=== PATIENT | female | born 1975 | race Hispanic/Latino ===

== ENCOUNTER 2018-11-11 10:01 | Emergency (ER) | payer SELFPAY ==
--- OUTSIDE RECORDS SUMMARY | 2018-11-11 10:04 | XMS REPORT ---
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 Allergies, Adverse Reactions, Alerts Allergy Name Allergy Type Status Severity Reaction(s) Onset Date Inactive Date Treating Clinician Comments No Known Allergies DA Active U 2017-02-24 00:00:00 Medications This patient has no known medications.
[2018-11-11] MEDS ORDERED: KETOROLAC TROMETHAMINE 60 MG/2 ML VIAL IM ONE (10:45)
--- NOTE | 2018-11-11 11:36 | NUR ---
MALISSA Amaya AT BEDSIDE SPEAKING WITH PATIENT REGARDING MEDS TO START AT HOME FOR BLOOD PRESSURE AND DIABETES. HE IS PRINTING LIST FOR FREE AND REDUCED RATE CLINICS. HEADACHE IS COMPLETELY GONE. BACK PAIN IS REDUCED TO 5/10
[2018-11-11] MEDS ORDERED: HYDROMORPHONE 2MG/ML 2 MG/ML ML IV ONE (15:15)
[2018-11-11] MEDS ORDERED: ONDANSETRON HCL INJ 2MG/ML 2ML 2 MG/ML VIAL ONE (15:17)
== END 2018-11-11 11:45 | disposition home or self-care (01) ==
LOC: ER 10:01
DX: S39.012A Strain of muscle, fascia and tendon of lower back, initial encounter (principal); M54.41 Lumbago with sciatica, right side; R51 Headache; E11.9 Type 2 diabetes mellitus without complications; Z79.84 Long term (current) use of oral hypoglycemic drugs; I10 Essential (primary) hypertension; E66.9 Obesity, unspecified
CPT/HCPCS: 93005; 99283; J1170; J1885; J2405

== ENCOUNTER 2019-02-01 17:13 | Emergency (ER) | payer OTHER ==
[~2019-02-01] VITALS: Ht 162.6 cm; Wt 102.1 kg
--- OUTSIDE RECORDS SUMMARY | 2019-02-01 17:15 | XMS REPORT | Clinical Summary ---
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 diabetes mellitus without mention of complication, uncontrolled Active blood glucose Use as 1 Kit 0 meterIndications: Type II directed. 3 or unspecified type diabetes mellitus without mention of complication, uncontrolled Active blood glucose test Check blood 1 Box 11 stripsIndications: Type glucose at 3 II or unspecified type home 4 times diabetes mellitus without weekly mention of complication, uncontrolled Active LANCETSIndications: Type 4 times 1 Box 11 II or unspecified type weekly 3 diabetes mellitus without mention of complication, uncontrolled Active simvastatin (ZOCOR) 40 mg Take 1 tablet 90 tablet 3 tabletIndications: HLD by mouth at 3 (hyperlipidemia) bedtime. Active lisinopril-hydrochlorothi Take 1 tablet 90 tablet 3 azide (PRINZIDE, by mouth 3 ZESTORETIC) 20-25 mg per daily. tabletIndications: HTN (hypertension) Active metFORMIN (GLUCOPHAGE) Take 1 tablet 180 tablet 3 500 mg tabletIndications: by mouth 2 3 Patella fracture times daily (with meals). Active HYDROcodone-acetaminophen Take 2 42 tablet 0 (NORCO) 5-325 mg tablets by 3 tabletIndications: mouth every 4 Patella fracture hours. Active Problems Problem Noted Date Diabetes mellitus 04/04/2013 Patella fracture 04/02/2013 Encounters Care Team Description Date Type Specialty 01/07/2019 Emergency Emergency Medicine 01/07/2019 Travel after 01/31/2018 Immunizations Name Dates Previously Given Next Due PPV 23 Pneumococcal 04/06/2013 Polysaccaride Tdap Tetanus, diphtheria, 04/30/2013 acellular pertussis Vaccine Family History Medical History Relation Name Comments Diabetes Brother Diabetes Mother Relation Name Status Comments Brother Mother Social History Date Tobacco Use Types Packs/Day Years Used Never Assessed Smokeless Tobacco: Never Used Alcohol Use Drinks/Week oz/Week Comments No Sex Assigned at Date Recorded Not on file Industry Job Start Date Occupation Not on file Not on file Not on file Travel End Travel History Travel Start No recent travel history available. Last Filed Vital Signs Time Taken Vital Sign Reading 01/07/2019 12:14 PM CDT Blood Pressure 182/68 01/07/2019 12:14 PM CDT Pulse 64 01/07/2019 12:14 PM CDT Temperature 36.5 C (97.7 F) 01/07/2019 12:14 PM CDT Respiratory Rate 18 01/07/2019 12:14 PM CDT Oxygen Saturation 98% - Inhaled Oxygen - Concentration - Weight - - Height - - Body Mass Index - Plan of Treatment Health Maintenance Due Date Last Done Comments DM Retinal Exam (Yearly) 1991 Cervical Cancer Scrn (3 1994 Yrs) Breast Cancer Scrn 2013 (Yearly) DM HGBA1C (Yearly) 04/02/2014 04/02/2013 DM Foot Exam (Yearly) 04/30/2014 04/30/2013, 04/30/2013 (Postponed) IMM Influenza Seasonal 07/01/2019Jul to November (>/=19 yrs) Results Not on fileafter 01/31/2018 Insurance Type Payer Benefit Subscriber ID Effective Phone Address Plan / Dates Group [facility] SELF-PAY SELF-PAY xxxxxxxxx 2019-P [phone] [address] [place] [address] Liability Advance Directives For more information, please contact: [address] [address] Date Inactivated Comments Code Status Date Activated 04/06/2013 8:18 PM Full Code 04/02/2013 6:32 PM
[2019-02-01] MEDS ORDERED: CLONIDINE HCL 0.1 MG TAB PO NR (17:30)
[2019-02-01] MEDS ORDERED: CLONIDINE HCL 0.1 MG TAB ONE (17:34)
[2019-02-01] MEDS ORDERED: TRAMADOL HCL 50 MG TAB PO NR (18:00)
[2019-02-01 18:55] VITALS: BP 149/63
== END 2019-02-01 18:59 | disposition home or self-care (01) ==
LOC: ER 17:13
DX: M79.622 Pain in left upper arm (principal); I10 Essential (primary) hypertension; E11.9 Type 2 diabetes mellitus without complications
CPT/HCPCS: 93005; 99282

== ENCOUNTER 2020-05-17 15:16 | Inpatient (IN) | payer OTHER ==
[~2020-05-17] VITALS: Ht 162.6 cm; Wt 117.9 kg
--- OUTSIDE RECORDS SUMMARY | 2020-05-17 15:40 | XMS REPORT | Clinical Summary ---
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 Active lisinopril-hydrochlorothi Take 1 tablet 90 tablet 3 azide (PRINZIDE, by mouth 3 ZESTORETIC) 20-25 mg per daily. tabletIndications: HTN (hypertension) Active HYDROcodone-acetaminophen Take 2 42 tablet 0 (NORCO) 5-325 mg tablets by 3 tabletIndications: mouth every 4 Patella fracture hours. 09/29/2019 Discontinued glyBURIDE micronized Take 1 tablet 180 tablet 3 (GLYNASE) 6 mg by mouth 2 3 tabletIndications: Type times daily II or unspecified type (with meals). diabetes mellitus without mention of complication, uncontrolled 09/29/2019 Discontinued blood glucose Use as 1 Kit 0 meterIndications: Type II directed. 3 or unspecified type diabetes mellitus without mention of complication, uncontrolled 09/29/2019 Discontinued metFORMIN (GLUCOPHAGE) Take 1 tablet 180 tablet 3 0 500 mg tabletIndications: by mouth 2 3 Patella fracture times daily (with meals). 12/28/2019 lisinopril (PRINIVIL) 20 Take 1 tablet 90 tablet 0 mg tabletIndications: by mouth 9 Medication refill daily for 90 days. 12/28/2019 hydroCHLOROthiazide Take 1 tablet 90 tablet 0 09/02 (HYDRODIURIL) 25 mg by mouth 9 tabletIndications: daily for 90 Medication refill days. 12/28/2019 metFORMIN (GLUCOPHAGE) Take 1 tablet 180 tablet 0 1 500 mg tabletIndications: by mouth 2 9 Medication refill times daily (with meals) for 90 days. Active Problems Problem Noted Date Diabetes mellitus 04/04/2013 Patella fracture 04/02/2013 Encounters Care Team Description Date Type Specialty Israel Chua MD Acute left ankle pain (Primary Dx); Medication refill 09/29/2019 Emergency Emergency Medicine Gurinder Mar MD Acute left ankle pain (Primary Dx); Closed nondisp fracture of left lateral malleolus with routine healing 09/26/2019 Emergency Emergency Medicine after 05/17/2019 Immunizations Name Administration Dates Next Due PPV 23 Pneumococcal 04/06/2013 Polysaccaride Tdap Tetanus, diphtheria, 04/30/2013 acellular pertussis Vaccine Family History Medical History Relation Name Comments Diabetes Brother Diabetes Mother Relation Name Status Comments Brother Mother Social History Date Tobacco Use Types Packs/Day Years Used Never Assessed Smokeless Tobacco: Never Used Drinks/Week oz/Week Comments Alcohol Use No Sex Assigned at Date Recorded Not on file Industry Job Start Date Occupation Not on file Not on file Not on file Travel End Travel History Travel Start No recent travel history available. Last Filed Vital Signs Reading Time Taken Comments Vital Sign 157/81 09/29/2019 11:17 PM GLASS FURNACE TENDER Blood Pressure 81 09/29/2019 11:17 PM GLASS FURNACE TENDER Pulse 36.7 C (98.1 F) 09/29/2019 7:04 PM GLASS FURNACE TENDER Temperature 16 09/29/2019 11:17 PM GLASS FURNACE TENDER Respiratory Rate 98% 09/29/2019 11:17 PM GLASS FURNACE TENDER Oxygen Saturation - - Inhaled Oxygen Concentration 104.3 kg (230 lb) 09/29/2019 7:06 PM GLASS FURNACE TENDER Weight - - Height 39.48 05/14/2013 3:03 PM CDT Body Mass Index Plan of Treatment Health Maintenance Due Date Last Done Comments DM Retinal Exam (Yearly) 1991 Cervical Cancer Scrn (3 1994 Yrs) Breast Cancer Scrn 2013 (Yearly) DM HGBA1C (Yearly) 04/02/2014 04/02/2013 DM Foot Exam (Yearly) 04/30/2014 04/30/2013, 04/30/2013 (Postponed) IMM Influenza Seasonal 07/01/2020 Oct to November (>/= 19 yrs) Procedures Comments Procedure Name Priority Date/Time Associated Diag nosis BMP POC Routine 09/29/2019 10:17 PM GLASS FURNACE TENDER XRAY ANKLE 3 VIEWS - STAT 09/29/2019 Acute lef t ankle pain ROUTINE 8:24 PM GLASS FURNACE TENDER GLUCOSE POC Routine 09/29/2019 7:10 PM GLASS FURNACE TENDER XRAY FOOT 3 VIEWS MIN STAT 09/26/2019 Acute le ft ankle pain 2:20 PM GLASS FURNACE TENDER XRAY TIBIA AND FIBULA 2 STAT 09/26/2019 Acute left ankle pain VIEWS 2:20 PM GLASS FURNACE TENDER XRAY ANKLE 3 VIEW MIN STAT 09/26/2019 Acute le ft ankle pain 2:20 PM GLASS FURNACE TENDER GLUCOSE POC Routine 09/26/2019 12:09 PM GLASS FURNACE TENDER after 05/17/2019 Results * POCT BMP POC docked device (09/29/2019 10:17 PM GLASS FURNACE TENDER) Sodium POC 137 136 - 145 mmol/L [facility] Potassium POC 3.3 (L) 3.5 - 5.1 mmol/L [facility] Chloride POC 99 98 - 107 mmol/L [facility] TCO2 POC 25 21 - 32 mmol/L [facility] Urea Nitrogen 13 7 - 18 mg/dL [facility] POC Creatinine POC 0.5 (L) 0.6 - 1.3 mg/dL [facility] Glucose POC 351 (H) 74 - 106 mg/dL [facility] Ionized Calcium 1.21 1.15 - 1.29 mmol/L [facility] POC GFR, Estimated >90 >=90 mL/min/1.73 m2 [facility] Hemoglobin POC 9.5 (L) 12 - 16 g/dL [facility] Hematocrit POC 28.0 (L) 37.0 - 47.0 % [facility] Specimen Blood, venous Performing Organization Address City/State/Zipcode Ph one Number [facility] [address] [place] [address] * XRAY ANKLE 3 VIEWS - ROUTINE (09/29/2019 8:24 PM GLASS FURNACE TENDER) Specimen Impressions Performed At IMPRESSION: SMS 1. Minimally displaced Stephens A type, tr ansverse fracture at the distal margin of left lateral malleolus. 2. No significant interval change or ad ditional acute osseous abnormality of the left ankle identifie d compared to 09/26/2019. 3. Persistent circumferential soft tiss ue swelling of the left ankle, greatest laterally. Signed By: Libra Bey MD, 019 8:33 PM Narrative Performed At EXAM: XR LEFT ANKLE [address] [facility] DATE: 09/29/2019 at 8:10 PM INDICATION: Twisted ankle. Acute left a nkle pain COMPARISON: Left ankle, left tibia, fib kathya and left foot series series 09/26/2019 TECHNIQUE: AP, lateral and oblique le ft ankle radiographs DISCUSSION: A radiopaque splint is applied to the d istal left lower extremity and ankle creating artifact. A transverse Stephens a type fracture is p resent at the distal margin of the lateral malleolus of the left ankle . The remainder of the left ankle appears intact. The left ankle mortise appears congruent. Convex soft tissue swelling is again se en circumferentially at the left ankle, greatest laterally. Procedure Note Interface, Rad/Mammog In - 09/29/2019 8:39 PM GLASS FURNACE TENDER EXAM: XR LEFT ANKLE 3 VIEWS DATE: 09/29/2019 at 8:10 PM INDICATION: Twisted ankle. Acute left ankle pain COMPARISON: Left ankle, left tibia, fibula and left foot series series 09/26/2019 TECHNIQUE: AP, lateral and oblique left ankle radiographs DISCUSSION: A radiopaque splint is applied to the distal left lower extremity and ankle creating artifact. A transverse Stephens a type fracture is present at the distal margin of the lateral malleolus of the left ankle. The remainder of the left ankle appears intact. The left ankle mortise appears congruent. Convex soft tissue swelling is again seen circumferentially at the left ankle, greatest laterally. IMPRESSION IMPRESSION: 1. Minimally displaced Stephens A type, tra nsverse fracture at the distal margin of left lateral malleolus. 2. No significant interval change or add itional acute osseous abnormality of the left ankle identified compared to 09/26/2019. 3. Persistent circumferential soft tissu e swelling of the left ankle, greatest laterally. Signed By: Libra Bey MD, 09/29/2019 8:33 PM Performing Organization Address [facility] one Number SMS * POCT GLUCOSE POC docked device (09/29/2019 7:10 PM GLASS FURNACE TENDER) Only the most recent of 2 results within the time period is included. Glucose POC 322 (H) 74 - 106 mg/dL [facility] Specimen Blood Performing Organization Address [facility] one Number [facility] [address] [place] [address] * XRAY FOOT 3 VIEWS MIN (09/26/2019 2:20 PM GLASS FURNACE TENDER) Specimen Narrative Performed At EXAM: XR LEFT TIBIA-FIBULA 2 VIEWS SMS EXAM: XR LEFT ANKLE 3 VIEWS EXAM: XR LEFT FOOT 3 VIEWS DATE: 09/26/2019 2:28 PM INDICATION: Fall with + Fracture Follow Up COMPARISON: None TECHNIQUE: AP and lateral views of the left tibia-fibula, AP, lateral and oblique radiographs of the left ank le, AP lateral and oblique views of the left foot. FINDINGS: The study is limited secondary to splin t artifact. Transverse minimally displaced fracture is noted through the tip of the lateral malleolus representing a Stephens A fracture. Ankle mortise is congruent. No other acute fracture is v isualized within the limitations of the study. Alignment of the bones an d ankle mortises normal. Diffuse soft tissue swelling of the ankle and d orsal soft tissues with the foot. IMPRESSION: 1. Transverse minimally displaced fra cture through the tip of the lateral malleolus representing Stephens A fracture. 2. No other definite displaced fractu re of the visualized within the limitations of study. Signed By: Cruz Mathur MD, 2018 3:03 PM Procedure Note Interface, Rad/Mammog In - 09/26/2019 3:08 PM GLASS FURNACE TENDER EXAM: XR LEFT TIBIA-FIBULA 2 VIEWS EXAM: XR LEFT ANKLE 3 VIEWS EXAM: XR LEFT FOOT 3 VIEWS DATE: 09/26/2019 2:28 PM INDICATION: Fall with + Fracture Follow Up COMPARISON: None TECHNIQUE: AP and lateral views of the left tibia-fibula, AP, lateral and oblique radiographs of the left ankle, AP lateral and oblique views of the left foot. FINDINGS: The study is limited secondary to splint artifact. Transverse minimally displaced fracture is noted through the tip of the lateral malleolus representing a Stephens A fracture. Ankle mortise is congruent. No other acute fracture is visualized within the limitations of the study. Alignment of the bones and ankle mortises normal. Diffuse soft tissue swelling of the ankle and dorsal soft tissues with the foot. IMPRESSION: 1. Transverse minimally displaced fract ure through the tip of the lateral malleolus representing Stephens A fracture. 2. No other definite displaced fracture of the visualized within the limitations of study. Signed By: Cruz Mathur MD, 09/26/2019 3:03 PM Performing Organization Address City/State/Zipcode Ph one Number [facility] * XRAY ANKLE 3 VIEW MIN (09/26/2019 2:20 PM GLASS FURNACE TENDER) Specimen Narrative Performed At EXAM: XR LEFT TIBIA-FIBULA 2 VIEWS SMS EXAM: XR LEFT ANKLE 3 VIEWS EXAM: XR LEFT FOOT 3 VIEWS DATE: 09/26/2019 2:28 PM INDICATION: Fall with + Fracture Follow Up COMPARISON: None TECHNIQUE: AP and lateral views of the left tibia-fibula, AP, lateral and oblique radiographs of the left ank le, AP lateral and oblique views of the left foot. FINDINGS: The study is limited secondary to splin t artifact. Transverse minimally displaced fracture is noted through the tip of the lateral malleolus representing a Stephens A fracture. Ankle mortise is congruent. No other acute fracture is v isualized within the limitations of the study. Alignment of the bones an d ankle mortises normal. Diffuse soft tissue swelling of the ankle and d orsal soft tissues with the foot. IMPRESSION: 1. Transverse minimally displaced fra cture through the tip of the lateral malleolus representing Stephens A fracture. 2. No other definite displaced fractu re of the visualized within the limitations of study. Signed By: Cruz Mathur MD, 2018 3:03 PM Procedure Note Interface, Rad/Mammog In - 09/26/2019 3:08 PM GLASS FURNACE TENDER EXAM: XR LEFT TIBIA-FIBULA 2 VIEWS EXAM: XR LEFT ANKLE 3 VIEWS EXAM: XR LEFT FOOT 3 VIEWS DATE: 09/26/2019 2:28 PM INDICATION: Fall with + Fracture Follow Up COMPARISON: None TECHNIQUE: AP and lateral views of the left tibia-fibula, AP, lateral and oblique radiographs of the left ankle, AP lateral and oblique views of the left foot. FINDINGS: The study is limited secondary to splint artifact. Transverse minimally displaced fracture is noted through the tip of the lateral malleolus representing a Stephens A fracture. Ankle mortise is congruent. No other acute fracture is visualized within the limitations of the study. Alignment of the bones and ankle mortises normal. Diffuse soft tissue swelling of the ankle and dorsal soft tissues with the foot. IMPRESSION: 1. Transverse minimally displaced fract ure through the tip of the lateral malleolus representing Stephens A fracture. 2. No other definite displaced fracture of the visualized within the limitations of study. Signed By: Cruz Mathur MD, 09/26/2019 3:03 PM Performing Organization Address City/State/Zipcode Ph one Number [facility] * XRAY TIBIA AND FIBULA 2 VIEWS (09/26/2019 2:20 PM GLASS FURNACE TENDER) Specimen Narrative Performed At EXAM: XR LEFT TIBIA-FIBULA 2 VIEWS SMS EXAM: XR LEFT ANKLE 3 VIEWS EXAM: XR LEFT FOOT 3 VIEWS DATE: 09/26/2019 2:28 PM INDICATION: Fall with + Fracture Follow Up COMPARISON: None TECHNIQUE: AP and lateral views of the left tibia-fibula, AP, lateral and oblique radiographs of the left ank le, AP lateral and oblique views of the left foot. FINDINGS: The study is limited secondary to splin t artifact. Transverse minimally displaced fracture is noted through the tip of the lateral malleolus representing a Stephens A fracture. Ankle mortise is congruent. No other acute fracture is v isualized within the limitations of the study. Alignment of the bones an d ankle mortises normal. Diffuse soft tissue swelling of the ankle and d orsal soft tissues with the foot. IMPRESSION: 1. Transverse minimally displaced fra cture through the tip of the lateral malleolus representing Stephens A fracture. 2. No other definite displaced fractu re of the visualized within the limitations of study. Signed By: Cruz Mathur MD, 2018 3:03 PM Procedure Note Interface, Rad/Mammog In - 09/26/2019 3:08 PM GLASS FURNACE TENDER EXAM: XR LEFT TIBIA-FIBULA 2 VIEWS EXAM: XR LEFT ANKLE 3 VIEWS EXAM: XR LEFT FOOT 3 VIEWS DATE: 09/26/2019 2:28 PM INDICATION: Fall with + Fracture Follow Up COMPARISON: None TECHNIQUE: AP and lateral views of the left tibia-fibula, AP, lateral and oblique radiographs of the left ankle, AP lateral and oblique views of the left foot. FINDINGS: The study is limited secondary to splint artifact. Transverse minimally displaced fracture is noted through the tip of the lateral malleolus representing a Stephens A fracture. Ankle mortise is congruent. No other acute fracture is visualized within the limitations of the study. Alignment of the bones and ankle mortises normal. Diffuse soft tissue swelling of the ankle and dorsal soft tissues with the foot. IMPRESSION: 1. Transverse minimally displaced fract ure through the tip of the lateral malleolus representing Stephens A fracture. 2. No other definite displaced fracture of the visualized within the limitations of study. Signed By: Cruz Mathur MD, 09/26/2019 3:03 PM Performing Organization Address City/State/Zipcode Ph one Number [facility] after 05/17/2019 Insurance Type Payer Benefit Subscriber ID Effective Phone Address Plan / Dates Group MEDICAID GENERIC HMO MEDICAID xxxxxxxxx 2019- P GENERIC resent HMO [facility] [facility] SELF-PAY SELF-PAY xxxxxxxxx 2019-P [phone] [id number] [place] [address] (Work) Advance Directives Date Inactivated Comments Code Status Date Activated 04/06/2013 8:18 PM Full Code 04/02/2013 6:32 PM
--- OUTSIDE RECORDS SUMMARY | 2020-05-17 15:40 | XMS REPORT ---
Author Author [facility] Organization Unknown Address Unknown Phone Care Team Providers Care Associate Name Role Phone Maritza Cobb PP Reason for Referral No Reason for Referral was given. History of Present Illness No HPI available. Problems * Normal Routine History And Physical Adult (V70.0); (Active) Medication * No Reported Medications (Active) Allergies and Adverse Reactions * No Known Drug Allergies (Active) Past Medical History * History of Diabetes Mellitus (250.00); (Resolved) * History of Hypertension (401.9); (Resolved) Family History * Family history of Type 2 Diabetes Mellitus (Active) * Family history of Hypertension (V17.49); (Active) * Family history of Cancer (Active) Social History * Never A Smoker (Active) Advance Directives * No Advance Directives available. Encounters * AUDIT 03/20/2013
--- OUTSIDE RECORDS SUMMARY | 2020-05-17 15:40 | XMS REPORT | Continuity of Care Document ---
Author Author [employer] [employer] Address Unknown Phone Unavailable Care Team Providers Care Psychiatric Arnp Name Role Phone [employer] [facility] Mage Unavailable Un available Problems No Data Provided for This Section Medications Medication Details Route Status Patient Instructions Ordering Provider Order Date Source No Reported Medications (Acti ve) Active [facility] Allergies, Adverse Reactions, Alerts Substance Category Reaction Severity Reaction type Status Date Reported Comments Source No Known Drug Allergies drug a llergy drug aller gy Active [facility] Immunizations No Data Provided for This Section Results No Data Provided for This Section Pathology Reports No Data Provided for This Section Diagnostic Reports No Data Provided for This Section Consultation Notes No Data Provided for This Section Discharge Summaries No Data Provided for This Section History and Physicals No Data Provided for This Section Vital Signs No Data Provided for This Section Encounters Location Location Details Encounter Type Encounter Number Reason For Visit Attending Provider ADM Date DC Date Status Source AUDIT [id number] 03/20/2013 03/20/2013 [facility] Procedures No Data Provided for This Section Assessment and Plan No Data Provided for This Section Plan of Care No Data Provided for This Section Social History Social History Date Source Never A Smoker (Active) 03/20/2013 [facility] Family History Value Date S ource Family history of Type 2 Diabetes Mellit (Active) Family history of Hypertension (V17.49); (Active) Family history of Cancer (Active) 03/20/2013 [facility] Advance Directives Order Name Results Value Date Source Advance Directives Advance Dir ectives No Advance Directives available. 03/20/2013 [facility] Functional Status No Data Provided for This Section
--- OUTSIDE RECORDS SUMMARY | 2020-05-17 15:41 | XMS REPORT | Continuity of Care Document ---
Author Author [facility] t Organization [facility] t Address [address] [place] [address] Phone Unavailable Care Team Providers Care Real Estate Rental Agent Name Role Phone NO, PCP PCP Unavailable Ray Chua MD Attphys Maxi Mar MD Attphys Payers Payer Name Policy Type Policy Number Effective Date Expiration Date S ource [place]ICA[place] [id number] xxxxxxxxx 2019 00:00:00 [facility] [id number] UNSCREENEDxxxxxxxx [id number] [place] [address] xxxxxxxxx 2019 00:00:00 [facility] Problems Condition Name Condition Details Condition Category Status Onset Date Resolution Date Last Treatment Date Treating Clinician Comments Source Diabetes mellitus Diabetes mellitus Disease Active 2013-04-04 00:00:00 [facility] Patella fracture Patella fracture Disease Active 2013-04-02 00:00:00 [facility] Allergies, Adverse Reactions, Alerts Allergy Name Allergy Type Status Severity Reaction(s) Onset Date Inacti ve Date Treating Clinician Comments Source No Known Allergies DA Active U 2020-05-01 00:00:00 [facility] No Known Allergies DA Active U 2020-04-20 00:00:00 [facility] No Known Allergies DA Active U 2020-02-02 00:00:00 [facility] No Known Allergies DA Active U 2019-10-23 00:00:00 [facility] No Known Allergies DA Active U 2019-10-02 00:00:00 [facility] No Known Allergies DA Active U 2019-06-15 00:00:00 [facility] [place] [place] No Known Allergies DA Active U 2018-12-19 00:00:00 [facility] No Known Allergies DA Active U 2017-02-24 00:00:00 [facility] No Known Drug Allergies No Known Drug Allergies Active [facility] Family History Family Member Diagnosis Comments Start Date Stop Date Source Natural brother Diabetes [facility] Natural mother Diabetes [facility] Unknown Family Member Family History 2013-03-20 08:28:41 2 08:28:41 [facility] Social Habit Start Date Stop Date Quantity Comments Source Sex Assigned At [facility] Alcohol intake 2019-09-26 00:00:00 2019-09-26 00:00:00 Current non-drinker of alcohol (finding) [facility] Social History 2013-03-20 08:28:41 2013-03-20 08:28:41 [facility] Medications Ordered Medication Name Filled Medication Name Start Date Stop Da te Current Medication? Ordering Clinician Indication Dosage Frequency Signature (SIG) Comments Components Source lisinopril (PRINIVIL) 20 mg tablet 2019-09-29 00:00:00 23:59:00 No Medication refill 20mg QD Take 1 tablet by mouth daily for 90 days. [facility] hydroCHLOROthiazide (HYDRODIURIL) 25 mg tablet 2 00:00:00 2019-12-28 23:59:00 No Medication refill 25mg QD Take 1 tablet by mouth daily for 90 days. [facility] metFORMIN (GLUCOPHAGE) 500 mg tablet 2019-09-29 00:00: 00 2019-12-28 23:59:00 No Medication refill 500mg Take 1 tab let by mouth 2 times daily (with meals) for 90 days. [facility] blood glucose test strips 2013-04-30 00:00:00 Yes Type II or unspecified type diabetes mellitus without mention of complication, uncontrolled Check blood glucose at home 4 times weekly [facility] LANCETS 2013-04-30 00:00:00 Yes Type II or unspecified type diabetes mellitus without mention of complication, uncontrolled 4 t imes weekly [facility] simvastatin (ZOCOR) 40 mg tablet 2013-04-30 00:00:00 Yes HLD (hyperlipidemia) 40mg Take 1 tablet by mouth at bedtime. [facility] lisinopril-hydrochlorothiazide (PRINZIDE, ZESTORETIC) 20-25 mg per tablet 2013-04-30 00:00:00 Yes HTN (hypertension) 1{tbl} Q D Take 1 tablet by mouth daily. [facility] HYDROcodone-acetaminophen (NORCO) 5-325 mg tablet 2013-04-30 00:00:00 Yes Patella fracture 2{tbl} Take 2 tablets by mouth every 4 hours. [facility] glyBURIDE micronized (GLYNASE) 6 mg tablet 04-30 00:00:00 2019-09-29 00:00:00 No Type II or unspecifi ed type diabetes mellitus without mention of complication, uncontrolled 6mg Take 1 tablet by mouth 2 times daily (with meals). [facility] blood glucose meter 2013-04-30 00:00:00 2019-09-29 00:00:00 No Type II or unspecified type diabetes mellitus without mention of complication, uncontrolled Use as directed. [facility] ealtlyn metFORMIN (GLUCOPHAGE) 500 mg tablet 2013-04-30 00:00: 00 2019-09-29 00:00:00 No Patella fracture 500mg Take 1 tabl et by mouth 2 times daily (with meals). [facility] No Reported Medications 2013-03-20 08:28:41 Yes (Active) [facility] Immunizations Ordered Immunization Name Filled Immunization Name Date Status Comments Source Tdap Tetanus, diphtheria, acellular pertussis Vaccine 2013-04-30 00:00:00 Completed [facility] PPV 23 Pneumococcal Polysaccaride 2013-04-06 00:00:00 Comp leted [facility] Vital Signs Vital Name Observation Time Observation Value Comments Source Systolic blood pressure 2019-09-29 23:17:00 157 mm[Hg] [facility] Diastolic blood pressure 2019-09-29 23:17:00 81 mm[Hg] [facility] Heart rate 2019-09-29 23:17:00 81 /min [facility] Respiratory rate 2019-09-29 23:17:00 16 /min [facility] Oxygen saturation in Arterial blood by Pulse oximetry 2018-10 23:17:00 98 /min [facility] Body weight 2019-09-29 19:06:00 104.327 kg [facility] BMI 2019-09-29 19:06:00 39.48 kg/m2 [facility] Body temperature 2019-09-29 19:04:00 36.72 [facility] Procedures Procedure Date / Time Performed Performing Clinician Gianna morel BMP POC 2019-09-29 22:17:00 Unknown, Provider [facility] XRAY ANKLE 3 VIEWS - ROUTINE 2019-09-29 20:24:06 Disha Randhawa [facility] GLUCOSE POC 2019-09-29 19:10:00 Unknown, Provider [facility] XRAY ANKLE 3 VIEW MIN 2019-09-26 14:20:00 [facility] [employer] XRAY TIBIA AND FIBULA 2 VIEWS 2019-09-26 14:20:00 [facility] XRAY FOOT 3 VIEWS MIN 2019-09-26 14:20:00 [facility] [employer] GLUCOSE POC 2019-09-26 12:09:00 Unknown, Provider Mumtaz [facility] Plan of Care Planned Activity Planned Date Details Comments Source Future Scheduled Test 2020-07-01 00:00:00 IMM Influenza Seas onal Jul to November (>/= 19 yrs) [code = IMM Influenza Seasonal Jul to November (>/= 19 yrs)] [facility] Scheduled Test 2014-04-30 00:00:00 DM Foot Exam (Year ly) [code = DM Foot Exam (Yearly)] [facility] Scheduled Test 2014-04-02 00:00:00 Hemoglobin A1c tracey surement (procedure) [code = 31691236] [facility] Scheduled Test 2013 00:00:00 Breast Cancer Scrn (Yearly) [code = Breast Cancer Scrn (Yearly)] [facility] Scheduled Test 1994 00:00:00 Screening for rowdy gnant neoplasm of cervix (procedure) [code = 588333718] [facility] Scheduled Test 1991 00:00:00 DM Retinal Exam (Y early) [code = DM Retinal Exam (Yearly)] [facility] Encounters Start Date/Time End Date/Time Encounter Type Admission Type Attendi [facility] Care Department Encounter ID Source 2019-10-16 00:00:00 2019-10-16 00:00:00 Outpatient [facility] [id number] [facility] 2019-10-16 00:00:00 2019-10-16 00:00:00 Outpatient [facility] [id number] [facility] 2019-09-29 20:46:22 2019-09-29 20:46:22 Emergency [facility] [id number] [facility] 2019-09-29 20:01:31 2019-09-29 20:01:31 Emergency [facility] [id number] [facility] 2019-09-29 00:00:00 2019-09-29 00:00:00 Emergency [facility] [id number] [facility] 2019-09-26 13:58:11 2019-09-26 13:58:11 Emergency [facility] [id number] [facility] 2019-09-26 13:10:38 2019-09-26 13:10:38 Emergency [facility] [id number] [facility] 2019-02-01 17:13:00 2019-02-01 18:59:00 Departed Emergency Room [facility] [id number] [facility] 2019-01-07 09:22:00 2019-01-07 09:22:00 Emergency [facility] [id number] [facility] 2018-11-11 10:01:00 2018-11-11 11:45:00 Departed Emergency Room [facility] [id number] [facility] 2013-03-20 03:28:41 2013-03-20 03:28:41 [place]patient [place] [id number] Results Test Description Test Time Test Comments Results Result Comments Source GLUBED 2020-05-13 15:18:00 Test Item GLUBED (test code = GLUBED) 432 mg/dL 70-110 H [id number] 15:18:00* Test Item Value Reference Range Interpretation Comments GLUBED (test code = GLUBED) 259 mg/dL 70-110 H BASIC METABOLIC [id number] 05:33:00* Test Item Value Reference Range Interpretation Comments SODIUM (test code = NA) 130 mmol/l 134.0-147.0 L POTASSIUM (test code = K) 3.5 mmol/L 3.6-5.2 L CHLORIDE (test code = CL) 96 mmol/l 98.0-107.0 L CARBON DIOXIDE (test code = CO2) 24.0 mmol/l 21.0-33.0 N ANION GAP (test code = GAP) 13.5 0-20 N GLUCOSE (test code = GLU) 219 mg/dl 70.0-110.0 H BLOOD UREA NITROGEN (test code = BUN) 64 mg/dl 7.0-18.0 H CREATININE (test code = CREAT) 1.43 mg/dL 0.60-1.30 H GFR NON BLACK (test code = GFRNONBLACK) 42 mL/min 95-105 L GFR BLACK (test code = GFRBLACK) 51 mL/min 115-127 L CALCIUM (test code = CA) 8.4 mg/dl 8.0-10.5 N [id number] 04:33:00* Test Item Value Reference Range Interpretation Comments GLUBED (test code = GLUBED) 590 mg/dL 70-110 HH [id number] 04:32:00* Test Item Value Reference Range Interpretation Comments GLUBED (test code = GLUBED) 320 mg/dL 70-110 H [id number] 23:32:00* Test Item Value Reference Range Interpretation Comments GLUBED (test code = GLUBED) 332 mg/dL 70-110 H [id number] 23:32:00* Test Item Value Reference Range Interpretation Comments GLUBED (test code = GLUBED) 324 mg/dL 70-110 H [id number] 23:32:00* Test Item Value Reference Range Interpretation Comments GLUBED (test code = GLUBED) 313 mg/dL 70-110 H [id number] 23:32:00* Test Item Value Reference Range Interpretation Comments GLUBED (test code = GLUBED) 317 mg/dL 70-110 H [id number] 23:32:00* Test Item Value Reference Range Interpretation Comments GLUBED (test code = GLUBED) 310 mg/dL 70-110 H [id number] 23:32:00* Test Item Value Reference Range Interpretation Comments GLUBED (test code = GLUBED) 248 mg/dL 70-110 H [id number] 23:31:00* Test Item Value Reference Range Interpretation Comments GLUBED (test code = GLUBED) 570 mg/dL 70-110 HH [id number] 23:25:00* Test Item Value Reference Range Interpretation Comments GLUBED (test code = GLUBED) 305 mg/dL 70-110 H [id number] 23:25:00* Test Item Value Reference Range Interpretation Comments GLUBED (test code = GLUBED) 301 mg/dL 70-110 H [id number] 23:25:00* Test Item Value Reference Range Interpretation Comments GLUBED (test code = GLUBED) 346 mg/dL 70-110 H [id number] 23:25:00* Test Item Value Reference Range Interpretation Comments GLUBED (test code = GLUBED) 547 mg/dL 70-110 HH [id number] 23:25:00* Test Item Value Reference Range Interpretation Comments GLUBED (test code = GLUBED) 543 mg/dL 70-110 HH CBC W/AUTO [id number] 06:07:00* Test Item Value Reference Range Interpretation Comments WHITE BLOOD CELL (test code = WBC) 9.4 K/mm3 4.5-11.0 N RED BLOOD CELL (test code = RBC) 4.54 M/mm3 3.80-5.20 N HEMOGLOBIN (test code = HGB) 8.1 gm/dL 12.0-16.0 L HEMATOCRIT (test code = HCT) 28.0 % 36.0-48.0 L MEAN CELL VOLUME (test code = MCV) 61.7 UM3 82.0-99.0 L MEAN CELL HGB (test code = MCH) 17.8 UUG 25.5-32.5 L MEAN CELL HGB CONCETRATION (test code = MCHC) 28.9 gm/dL 29.0-35. 5 L RED CELL DISTRIBUTION WIDTH (test code = RDW) 21.0 % 11.5-15. 0 H RED CELL DISTRIBUTION WIDTH SD (test code = RDW-SD) 43.2 fL 34 .8-50.2 N PLATELET COUNT (test code = PLT) 535 K/mm3 150-400 H MEAN PLATELET VOLUME (test code = MPV) 9.5 fl 7.4-10.4 N NEUTROPHIL % (test code = NT%) 88.5 % 49.0-76.0 H IMMATURE GRANULOCYTE % (test code = IG%) 0.6 % 0.0-0.4 H LYMPHOCYTE % (test code = LY%) 7.8 % 23.0-38.0 L MONOCYTE % (test code = MO%) 3.0 % 1.0-10.0 N EOSINOPHIL % (test code = EO%) 0.0 % 1.0-5.0 L BASOPHIL % (test code = BA%) 0.1 % 0.0-1.0 N NEUTROPHIL # (test code = NT#) 8.3 K/mm3 2.4-6.3 H IMMATURE GRANULOCYTE # (test code = IG#) 0.06 x10 3/uL 0.00-0.07 N LYMPHOCYTE # (test code = LY#) 0.7 K/mm3 1.2-4.0 L MONOCYTE # (test code = MO#) 0.3 K/mm3 0.0-0.6 N EOSINOPHIL # (test code = EO#) 0.0 K/MM3 0.0-0.7 N BASOPHIL # (test code = BA#) 0.0 K/mm3 0.0-0.2 N [id number] 05:43:00* Test Item Value Reference Range Interpretation Comments MAGNESIUM (test code = MAG) 1.8 mg/dl 1.8-2.4 N COMPREHENSIVE METABOLIC [id number] 05:27:00* Test Item Value Reference Range Interpretation Comments SODIUM (test code = NA) 125 mmol/l 134.0-147.0 L POTASSIUM (test code = K) 4.3 mmol/L 3.6-5.2 N CHLORIDE (test code = CL) 90 mmol/l 98.0-107.0 L CARBON DIOXIDE (test code = CO2) 22.3 mmol/l 21.0-33.0 N ANION GAP (test code = GAP) 18.1 0-20 N GLUCOSE (test code = GLU) 319 mg/dl 70.0-110.0 H BLOOD UREA NITROGEN (test code = BUN) 62 mg/dl 7.0-18.0 H CREATININE (test code = CREAT) 2.41 mg/dL 0.60-1.30 H GFR NON BLACK (test code = GFRNONBLACK) 23 mL/min 95-105 L GFR BLACK (test code = GFRBLACK) 28 mL/min 115-127 L TOTAL PROTEIN (test code = PROT) 8.3 GM/DL 6.0-8.1 H ALBUMIN (test code = ALB) 2.8 gm/dL 3.2-4.7 L CALCIUM (test code = CA) 8.5 mg/dl 8.0-10.5 N BILIRUBIN TOTAL (test code = BILT) 0.2 mg/dl 0.0-1.0 N SGOT/AST (test code = AST) 16 Units/L 15.0-37.0 N SGPT/ALT (test code = ALT) 14 Units/L 12.0-78.0 N ALKALINE PHOSPHATASE TOTAL (test code = ALKP) 82 Units/L 50.0-136 .0 N FE W/TOTAL IRON BINDING CAP.2020-05-03 14:18:00* Test Item Value Reference Range Interpretation Comments SERUM IRON (test code = IRON) 20 mcg/dl 35.0-150.0 L Patients treated with metal-binding drugs such asdeferoxamine may have depressed iron values due to ironchelation. Clinical impact would be mitigated byconsideration of clinical symptoms. TOTAL IRON BINDING CAPACITY (test code = TIBC) 385 mcg/dl 260.0-4 45.0 N Result is in microgram per deciliter IRON SATURATION (test code = FESAT) 5 % 15-50 L [id number] 14:18:00* Test Item Value Reference Range Interpretation Comments FERRITIN (test code = JAVI) 43 ng/mL 11.0-306.8 N THYROID STIMULATING [id number] 13:34:00* Test Item Value Reference Range Interpretation Comments THYROID STIMULATING HORMONE (test code = TSH) 2.78 IU/ML 0.47-5.0 1 N Result is in International Units/milliliter [id number] 13:34:00* Test Item Value Reference Range Interpretation Comments HGBA1C% (test code = HGBA1C%) 11.4 %A1C 4.8-6.0 H ESTIMATED AVERAGE GLUCOSE (test code = EAG) 280 MG/DL COMPREHENSIVE METABOLIC [id number] 04:27:00* Test Item Value Reference Range Interpretation Comments SODIUM (test code = NA) 128 mmol/l 134.0-147.0 L POTASSIUM (test code = K) 3.9 mmol/L 3.6-5.2 N CHLORIDE (test code = CL) 92 mmol/l 98.0-107.0 L CARBON DIOXIDE (test code = CO2) 23.3 mmol/l 21.0-33.0 N ANION GAP (test code = GAP) 16.6 0-20 N GLUCOSE (test code = GLU) 178 mg/dl 70.0-110.0 H BLOOD UREA NITROGEN (test code = BUN) 45 mg/dl 7.0-18.0 H CREATININE (test code = CREAT) 2.72 mg/dL 0.60-1.30 H GFR NON BLACK (test code = GFRNONBLACK) 20 mL/min 95-105 L GFR BLACK (test code = GFRBLACK) 24 mL/min 115-127 L TOTAL PROTEIN (test code = PROT) 8.6 GM/DL 6.0-8.1 H ALBUMIN (test code = ALB) 3.1 gm/dL 3.2-4.7 L CALCIUM (test code = CA) 9.0 mg/dl 8.0-10.5 N BILIRUBIN TOTAL (test code = BILT) 0.2 mg/dl 0.0-1.0 N SGOT/AST (test code = AST) 17 Units/L 15.0-37.0 N SGPT/ALT (test code = ALT) 14 Units/L 12.0-78.0 N ALKALINE PHOSPHATASE TOTAL (test code = ALKP) 82 Units/L 50.0-136 .0 N [id number] 09:04:00* Test Item Value Reference Range Interpretation Comments [id number] (test code = FKJWC11Aowgrwpi) POSITIVE Negative A Note: this entry is for TRACKING purposes only and the testwas done outside [facility], the performing entity isfound in specimen comments.Note: this entry is for TRACKING purposes only and the testwas done outside [facility], the performing entity isfound in specimen comments. The test was performed at: [facility]: 05/01/20Patient's account number from [facility] facility: [id number] patient's current lab results are: Positive - CT ABD PELVIS [id number] 18:45:00 Name: DIEGO GARCÍA [facility] : 1975 Age/S: 44 / F [address] Unit #: [id number] Loc: [place] [address] Phys: Sree De La Cruz MD Acct: [id number] Dis Date: Status: REG ER PHONE #: [phone] Exam Date: 05/01/2020 1830 FAX #: [phone] Reason: abd pain diffuse EXAMS: CPT CODE: [id number] CT ABD PELVIS W/CONT 91262 HISTORY: Shortness of breath and Covid positive. COMPARISON: Chest x-ray from same day and CT chest from November 15, 2019. Location: [facility]. CTA CHEST: 3-D images available. 100 mL of Isovue-370. Automated exposure control. Unremarkable aorta without aneurysm or dissection. Well-opacified SVC and the visualized neck vasculature. No pulmonary embolism. Unremarkable incompletely included thyroid glands. Esophageal wall is not thickened. No pathologic adenopathy. Cardiac silhouette is normal without pericardial effusion. Subcutaneous tissues and the musculature are normal in appearance. No lytic or blastic lesions are noted within the bony skeleton. DJD. Patchy vague groundglass infiltrates consistent with Covid pneumonia and not seen on the chest x-ray. No effusion or congestion. IMPRESSION: Patchy groundglass nodular infiltrates not visible on chest x-ray consistent with Covid pneumonia. No pulmonary embolism with unremarkable aorta. No pathologic adenopathy. CT ABDOMEN: The liver is enhancing homogeneously without parenchymal mass or nodules. Gallbladder is without radiopaque stones. Portal vein and hepatic artery are patent. The liver is not enlarged. The spleen is not enlarged and enhanced homogeneously. The stomach distends incompletely and is limited in evaluation. Pancreas enhances homogeneously. Unremarkable adrenals. Kidneys are free from hydroureteronephrosis. Homogeneous enhancement. Excretion is not visi ble on the delayed sequence this may represent timing of imaging or kamla l insufficiency. Correlate with renal PAGE 1 Signed Report (CONTINUED) [facility] 1975 Age/S: 44 / F [address] Unit #: [id number] Loc: [place] [address] Phys: Sree De La Cruz MD Acct: [id number] Dis Date: Status: REG ER PHONE #: [phone] Exam Date: 05/01/2020 1830 FAX #: [phone] Reason: abd pain diffuse EXAMS: CPT CODE: [id number] CT ABD PELVIS W/CONT 86252 <Continued> function tests. No pathologic adenopathy. Well-opacified abdominal and pelvic vasculature. IVC filter caudal to the level of the renal veins. No bowel obstruction or colitis or diverticulitis or enteritis. CT PELVIS: Appendix is not seen. No inflammatory changes. Pelvic bowel loops are unobstructed. Unremarkable uterus and ovaries. Decompressed urinary bladder is very limited. No free fluid or free air or abscess. No pelvic pathologic adenopathy. Subcutaneous tissues and the musculature are normal in appearance. Canal and foraminal stenosis from disc osteophyte complex at L5-S1 level and L4-L5 level. No lytic or blastic lesions visible within the bony skeleton. DJD. IMPRESSION: Excretion is not seen on the delayed sequence from the kidneys may represent timing of imaging or renal insufficiency. Correlate with renal function tests. Otherwise no acute intra-abdominal or intrapelvic pathology. at 1845 Reported and signed by: Matt Ramos M.D. CC: Sree De La Cruz MD Technologist:Rainer Amador RT(R)(CT) CTDI: DLP: Trnscb Date/Time: 05/01/2020 (1844) t.SDR.TH4 Orig Print D/T: S: 05/01/2020 (1847) PAGE 2 Signed Report - CTA CHEST 2020-05-01 18:45:00 Name: DIEGO GARCÍA [facility] : 1975 Age/S: 44 / F [address] Unit #: [id number] Loc: [place] [address] Phys: Sree De La Cruz MD Acct: [id number] Dis Date: Status: REG ER PHONE #: [phone] Exam Date: 05/01/20201829 FAX #: [phone] Reason: sob EXAMS: CPT CODE: [id number] CTA CHEST 64361 HISTORY: Shortness of breath and Covid positive. COMPARISON: Chest x-ray from same day and CT chest from November 15, 2019. Location: [facility]. CTA CHEST: 3-D images available. 100 mL of Isovue- 370. Automated exposure control. Unremarkable aorta without aneurysm or dissection. Well-opacified SVC and the visualized neck vasculature. No pulmonary embolism. Unremarkable incompletely included thyroid glands. Esophageal wall is not thickened. No pathologic adenopathy. Cardiac silhouette is normal without pericardial effusion. Subcutaneous tissues and the musculature are normal in appearance. No lytic or blastic lesions are noted within the bony skeleton. DJD. Patchy vague groundglass infiltrates consistent with Covid pneumonia and not seen on the chest x-ray. No effusion or congestion. IMPRESSION: Patchy groundglass nodular infiltrates not visible on chest x-ray consistent with Covid pneumonia. No pulmonary embolism with unremarkable aorta. No pathologic adenopathy. CT ABDOMEN: The liver is enhancing homogeneously without parenchymal mass or nodules. Gallbladder is without radiopaque stones. Portal vein and hepatic artery are patent. The liver is not enlarged. The spleen is not enlarged and enhanced homogeneously. The stomach distends incompletely and is limited in evaluation. Pancreas enhances homogeneously. Unremarkable adrenals. Kidneys are free from hydroureteronephrosis. Homogeneous enhancement. Excretion is not visi ble on the delayed sequence this may represent timing of imaging or kamla l insufficiency. Correlate with renal PAGE 1 Signed Report (CONTINUED) Name: DIEGO GARCÍA [facility] : 1975 Age/S: 44 / F [address] Unit #: [id number] Loc: [place] [address] Phys: Sree De La Cruz MD Acct: [id number] Dis Date: Status: REG ER PHONE #: [phone] Exam Date: 05/01/20201829 FAX #: [phone] Reason: sob EXAMS: CPT CODE: [id number] CTA CHEST 80455 <Continued> function tests. No pathologic adenopathy. Well-opacified abdominal and pelvic vasculature. IVC filter caudal to the level of the renal veins. No bowel obstruction or colitis or diverticulitis or enteritis. CT PELVIS: Appendix is not seen. No inflammatory changes. Pelvic bowel loops are unobstructed. Unremarkable uterus and ovaries. Decompressed urinary bladder is very limited. No free fluid or free air or abscess. No pelvic pathologic adenopathy. Subcutaneous tissues and the musculature are normal in appearance. Canal and foraminal stenosis from disc osteophyte complex at L5-S1 level and L4-L5 level. No lytic or blastic lesions visible within the bony skeleton. DJD. IMPRESSION: Excretion is not seen on the delayed sequence from the kidneys may represent timing of imaging or renal insufficiency. Correlate with renal function tests. Otherwise no acute intra-abdominal or intrapelvic pathology. at 1845 Reported and signed by: Matt Ramos M.D. CC: Sree De La Cruz MD Technologist:Rainer Amador RT(R)(CT) CTDI: DLP: Trnscb Date/Time: 05/01/2020 (1844) t.SDR.TH4 Orig Print D/T: S: 05/01/2020 (1847) PAGE 2 Signed Report COVID 19 INHOUSE [id number] 18:41:00* Test Item Value Reference Range Interpretation Comments COVID 19 INHOUSE AG (test code = [id number]) POSITIVE CBC W/AUTO [id number] 18:29:00* Test Item Value Reference Range Interpretation Comments WHITE BLOOD CELL (test code = WBC) 8.1 K/mm3 4.5-12.5 N RED BLOOD CELL (test code = RBC) 4.94 mill/mm3 3.7-5.2 N HEMOGLOBIN (test code = HGB) 8.6 gram/dL 11.5-15.5 L HEMATOCRIT (test code = HCT) 30.9 % 36.0-46.0 L MEAN CELL VOLUME (test code = MCV) 62.6 fL 80-98 L MEAN CELL HGB (test code = MCH) 17.4 picogram 27.0-33.0 L MEAN CELL HGB CONCETRATION (test code = MCHC) 27.8 gram/dL 33.0-36. 0 L RED CELL DISTRIBUTION WIDTH (test code = RDW) 21.1 % 11.6-16. 2 H RED CELL DISTRIBUTION WIDTH SD (test code = RDW-SD) 44.4 fL 37 .0-51.0 N PLATELET COUNT (test code = PLT) 363 K/mm3 150-450 N MEAN PLATELET VOLUME (test code = MPV) 8.9 fL 6.7-11.0 N NEUTROPHIL % (test code = NT%) 86.1 % 39.0-69.0 H IMMATURE GRANULOCYTE % (test code = IG%) 0.5 % 0.0-5.0 N LYMPHOCYTE % (test code = LY%) 9.0 % 25.0-55.0 L MONOCYTE % (test code = MO%) 4.3 % 0.0-10.0 N EOSINOPHIL % (test code = EO%) 0.0 % 0.0-5.0 N BASOPHIL % (test code = BA%) 0.1 % 0.0-1.0 N NUCLEATED RBC % (test code = NRBC%) 0.0 % 0-0 N NEUTROPHIL # (test code = NT#) 6.99 K/mm3 1.8-7.7 N IMMATURE GRANULOCYTE # (test code = IG#) 0.04 x10 3/uL 0-0.03 H LYMPHOCYTE # (test code = LY#) 0.73 K/mm3 1.0-5.0 L MONOCYTE # (test code = MO#) 0.35 K/mm3 0-0.8 N EOSINOPHIL # (test code = EO#) 0.00 K/mm3 0.0-0.5 N BASOPHIL # (test code = BA#) 0.01 K/mm3 0.0-0.2 N NUCLEATED RBC # (test code = NRBC#) 0.00 K/mm3 0.0-0.1 N MANUAL DIFF REQUIRED (test code = MDIFF) NO, ONLY SCAN NEEDED DIFFERENTIAL [id number] 18:29:00* Test Item Value Reference Range Interpretation Comments STAIN ACCEPTABILITY (test code = STN ACCEPTABLE) STAIN ACCEPTABLE POLYCHROMASIA (test code = POLC) 1+ HYPOCHROMIA (test code = HYPO) 2+ ANISOCYTOSIS (test code = ANISO) 2+ MICROCYTOSIS (test code = MICR) 2+ PLATELET ESTIMATE (test code = PLTEST) ADEQUATE PLATELET MORPHOLOGY (test code = PLTMORPH) NORMAL B-TYPE NATRIURETIC [id number] 18:01:00* Test Item Value Reference Range Interpretation Comments B-TYPE NATRIURETIC PEPTIDE (test code = BNP) 7.70 pgram/mL 0-100 N - XR CHEST 1 [id number] 17:56:00 FAX: Sree De La Cruz MD [phone] [place]: St: REG Name: DIEGO BELL [facility] : [birth year] Age/S: 44/F [address] [facility] Unit #: [id number] Loc: [place] [address] Phys: Sree De La Cruz MD Acct: [id number] Dis Date: Status: REG ER PHONE #: [phone] Exam Date: 05/01/2020 1740 FAX #: [phone] Reason: SHORTNESS OF BREATH EXAMS: CPT CODE: [id number] XR CHEST 1 V 05781 HISTORY: Shortness of breath. COMPARISON: October 06, 2019. Location: . No acute infiltrates, effusion or congestion is noted. Suboptimal inspir ation with crowding of bronchovascular markings. Dependent changes. Card iomegaly. IMPRESSION: No acute infiltrates, effusion or congestion. Electronically Signed by Sharyn mijares 05/01/2020 at 1756 Reported and signed by: Matt jade M.D. CC: Sree De La Cruz MD Technologist: Adwoa Car RT(R) Trnscrd Date/Time/By: 05/01/2020 (1755) : By: [email or web address] Orig Print D/T: S: 05/01/2020 (955) PAGE 1 Signed Report LACTIC [id number] 17:40:00* Test Item Value Reference Range Interpretation Comments LACTIC ACID (test code = LACT) 2.2 mmol/L 0.4-1.9 HH Results called to by TOBY 05/01/20 1740Critical results verified and read back by Nurse? 2.3 BASIC METABOLIC [id number] 17:39:00* Test Item Value Reference Range Interpretation Comments SODIUM (test code = NA) 132 mmol/L 136-145 L POTASSIUM (test code = K) 3.6 mmol/L 3.5-5.1 N CHLORIDE (test code = CL) 98.0 mmol/L 98-107 N CARBON DIOXIDE (test code = CO2) 22.0 mmol/L 21-32 N ANION GAP (test code = GAP) 15.6 10-20 N GLUCOSE (test code = GLU) 359 mg/dL 74-106 H BLOOD UREA NITROGEN (test code = BUN) 23 mg/dL 7-18 H GLOMERULAR FILTRATION RATE (test code = GFR) 60 mL/min >=60 Estimated GFR by using Modified MDRD formula.Chronic kidney disease is defined as either kidney damageor GFR <60 mL/min/1.73 m2 for >3 months. CREATININE (test code = CREAT) 1.00 mg/dL 0.55-1.02 N Note change in reference range due to change in reagent. BUN/CREATININE RATIO (test code = BUN/CREA) 21.9 10-20 H CALCIUM (test code = CA) 9.4 mg/dL 8.5-10.1 N HEPATIC FUNCTION [id number] 17:39:00* Test Item Value Reference Range Interpretation Comments TOTAL PROTEIN (test code = PROT) 9.2 gram/dL 6.4-8.2 H ALBUMIN (test code = ALB) 3.2 g/dL 3.4-5.0 L GLOBULIN (test code = GLOB) 6.0 gram/dL 2.7-4.2 H ALBUMIN/GLOBULIN RATIO (test code = A/G) 0.5 0.75-1.50 L BILIRUBIN TOTAL (test code = BILT) 0.30 mg/dL 0.0-1.0 N BILIRUBIN DIRECT (test code = BILD) 0.13 mg/dL 0.0-0.20 N SGOT/AST (test code = AST) 11 IUnit/L 15-37 L SGPT/ALT (test code = ALT) 14 IUnit/L 12-78 N ALKALINE PHOSPHATASE TOTAL (test code = ALKP) 93 IUnit/L 45-117 N Note change in reference range due to change in reagent. LACTIC DEHYDROGENASE(LDH)2020-05-01 17:39:00* Test Item Value Reference Range Interpretation Comments LACTIC DEHYDROGENASE(LDH) (test code = LDH) 172 IUnit/L 84-246 N [id number] 17:39:00* Test Item Value Reference Range Interpretation Comments LIPASE (test code = LIP) 185 U/L 73.0-393.0 N HCG SERUM [id number] 17:39:00* Test Item Value Reference Range Interpretation Comments HCG SERUM BETA (test code = HCG) < 1.0 mIU/mL 0-3 N INTERPRETATION:B-HCG LEVELS <5 SHOULD BE CONSIDERED "NEGATIVE." *WHEN BODERLINE RESULTS ARE ENCOUNTERED,PATIENT SAMPLESSHOULD BE REDRAWN 48 HOURS. 0-1 WEEKS AFTER CONCEPTION 5-50 MIU/ML1-2 WEEKS AFTER CONCEPTION 50-500 MIU/ML2-3 WEEKS AFTER CONCEPTION 100 -5,000 MIU/ML3-4 WEEKS AFTER CONCEPTION 500-10,000 MIU/ML4-5 WEEKS AFTER CONCEPTION 1000 -50,000 MIU/ML5-6 WEEKS AFTER CONCEPTION 10,000-100,000 MIU/ML6-8 WEEKS AFTER CONCEPTION 15,000- 200,000 MIU/ML2-3 MONTHS AFTER CONCEPTION 10,000-100,000 MIU/ML [id number] 17:39:00* Test Item Value Reference Range Interpretation Comments TROPONIN-I (test code = TROPI) <0.015 ng/mL 0-0.045 N [id number] 17:39:00* Test Item Value Reference Range Interpretation Comments FERRITIN (test code = JAVI) 21 ng/mL 8-388 N C REACTIVE [id number] 17:36:00* Test Item Value Reference Range Interpretation Comments C REACTIVE PROTEIN (test code = CRP) 2.26 mg/dL 0-0.3 H BASIC METABOLIC [id number] 17:26:00* Test Item Value Reference Range Interpretation Comments SODIUM (test code = NA) 132 mmol/L 136-145 L POTASSIUM (test code = K) 3.6 mmol/L 3.5-5.1 N CHLORIDE (test code = CL) 98.0 mmol/L 98-107 N CARBON DIOXIDE (test code = CO2) mmol/L 21-32 ANION GAP (test code = GAP) 10-20 GLUCOSE (test code = GLU) mg/dL 74-106 BLOOD UREA NITROGEN (test code = BUN) mg/dL 7-18 GLOMERULAR FILTRATION RATE (test code = GFR) mL/min >=60 CREATININE (test code = CREAT) mg/dL 0.55-1.02 BUN/CREATININE RATIO (test code = BUN/CREA) 10-20 CALCIUM (test code = CA) mg/dL 8.5-10.1 HEPATIC FUNCTION [id number] 17:26:00* Test Item Value Reference Range Interpretation Comments TOTAL PROTEIN (test code = PROT) gram/dL 6.4-8.2 ALBUMIN (test code = ALB) g/dL 3.4-5.0 GLOBULIN (test code = GLOB) gram/dL 2.7-4.2 ALBUMIN/GLOBULIN RATIO (test code = A/G) 0.75-1.50 BILIRUBIN TOTAL (test code = BILT) mg/dL 0.0-1.0 BILIRUBIN DIRECT (test code = BILD) mg/dL 0.0-0.20 SGOT/AST (test code = AST) IUnit/L 15-37 SGPT/ALT (test code = ALT) IUnit/L 12-78 ALKALINE PHOSPHATASE TOTAL (test code = ALKP) IUnit/L 45-117 LACTIC DEHYDROGENASE(LDH)2020-05-01 17:26:00* Test Item Value Reference Range Interpretation Comments LACTIC DEHYDROGENASE(LDH) (test code = LDH) IUnit/L 84-246 [id number] 17:26:00* Test Item Value Reference Range Interpretation Comments LIPASE (test code = LIP) U/L 73.0-393.0 HCG SERUM [id number] 17:26:00* Test Item Value Reference Range Interpretation Comments HCG SERUM BETA (test code = HCG) mIU/mL 0-3 [id number] 17:26:00* Test Item Value Reference Range Interpretation Comments TROPONIN-I (test code = TROPI) ng/mL 0-0.045 [id number] 17:26:00* Test Item Value Reference Range Interpretation Comments FERRITIN (test code = JAVI) ng/mL 8-388 CBC W/AUTO [id number] 17:24:00* Test Item Value Reference Range Interpretation Comments WHITE BLOOD CELL (test code = WBC) 8.1 K/mm3 4.5-12.5 N RED BLOOD CELL (test code = RBC) 4.94 mill/mm3 3.7-5.2 N HEMOGLOBIN (test code = HGB) 8.6 gram/dL 11.5-15.5 L HEMATOCRIT (test code = HCT) 30.9 % 36.0-46.0 L MEAN CELL VOLUME (test code = MCV) 62.6 fL 80-98 L MEAN CELL HGB (test code = MCH) 17.4 picogram 27.0-33.0 L MEAN CELL HGB CONCETRATION (test code = MCHC) 27.8 gram/dL 33.0-36. 0 L RED CELL DISTRIBUTION WIDTH (test code = RDW) 21.1 % 11.6-16. 2 H RED CELL DISTRIBUTION WIDTH SD (test code = RDW-SD) 44.4 fL 37 .0-51.0 N PLATELET COUNT (test code = PLT) 363 K/mm3 150-450 N MEAN PLATELET VOLUME (test code = MPV) 8.9 fL 6.7-11.0 N NEUTROPHIL % (test code = NT%) 86.1 % 39.0-69.0 H IMMATURE GRANULOCYTE % (test code = IG%) 0.5 % 0.0-5.0 N LYMPHOCYTE % (test code = LY%) 9.0 % 25.0-55.0 L MONOCYTE % (test code = MO%) 4.3 % 0.0-10.0 N EOSINOPHIL % (test code = EO%) 0.0 % 0.0-5.0 N BASOPHIL % (test code = BA%) 0.1 % 0.0-1.0 N NUCLEATED RBC % (test code = NRBC%) 0.0 % 0-0 N NEUTROPHIL # (test code = NT#) 6.99 K/mm3 1.8-7.7 N IMMATURE GRANULOCYTE # (test code = IG#) 0.04 x10 3/uL 0-0.03 H LYMPHOCYTE # (test code = LY#) 0.73 K/mm3 1.0-5.0 L MONOCYTE # (test code = MO#) 0.35 K/mm3 0-0.8 N EOSINOPHIL # (test code = EO#) 0.00 K/mm3 0.0-0.5 N BASOPHIL # (test code = BA#) 0.01 K/mm3 0.0-0.2 N NUCLEATED RBC # (test code = NRBC#) 0.00 K/mm3 0.0-0.1 N MANUAL DIFF REQUIRED (test code = MDIFF) NO, ONLY SCAN NEEDED DIFFERENTIAL [id number] 17:24:00* Test Item Value Reference Range Interpretation Comments STAIN ACCEPTABILITY (test code = STN ACCEPTABLE) CABOT RINGS (test code = CAB) MORPHOLOGY COMMENT (test code = MOC) PLATELET ESTIMATE (test code = PLTEST) PLATELET MORPHOLOGY (test code = PLTMORPH) CBC W/AUTO [id number] 17:24:00* Test Item Value Reference Range Interpretation Comments WHITE BLOOD CELL (test code = WBC) 8.1 K/mm3 4.5-12.5 N RED BLOOD CELL (test code = RBC) 4.94 mill/mm3 3.7-5.2 N HEMOGLOBIN (test code = HGB) 8.6 gram/dL 11.5-15.5 L HEMATOCRIT (test code = HCT) 30.9 % 36.0-46.0 L MEAN CELL VOLUME (test code = MCV) 62.6 fL 80-98 L MEAN CELL HGB (test code = MCH) 17.4 picogram 27.0-33.0 L MEAN CELL HGB CONCETRATION (test code = MCHC) 27.8 gram/dL 33.0-36. 0 L RED CELL DISTRIBUTION WIDTH (test code = RDW) 21.1 % 11.6-16. 2 H RED CELL DISTRIBUTION WIDTH SD (test code = RDW-SD) 44.4 fL 37 .0-51.0 N PLATELET COUNT (test code = PLT) 363 K/mm3 150-450 N MEAN PLATELET VOLUME (test code = MPV) 8.9 fL 6.7-11.0 N NEUTROPHIL % (test code = NT%) 86.1 % 39.0-69.0 H IMMATURE GRANULOCYTE % (test code = IG%) 0.5 % 0.0-5.0 N LYMPHOCYTE % (test code = LY%) 9.0 % 25.0-55.0 L MONOCYTE % (test code = MO%) 4.3 % 0.0-10.0 N EOSINOPHIL % (test code = EO%) 0.0 % 0.0-5.0 N BASOPHIL % (test code = BA%) 0.1 % 0.0-1.0 N NUCLEATED RBC % (test code = NRBC%) 0.0 % 0-0 N NEUTROPHIL # (test code = NT#) 6.99 K/mm3 1.8-7.7 N IMMATURE GRANULOCYTE # (test code = IG#) 0.04 x10 3/uL 0-0.03 H LYMPHOCYTE # (test code = LY#) 0.73 K/mm3 1.0-5.0 L MONOCYTE # (test code = MO#) 0.35 K/mm3 0-0.8 N EOSINOPHIL # (test code = EO#) 0.00 K/mm3 0.0-0.5 N BASOPHIL # (test code = BA#) 0.01 K/mm3 0.0-0.2 N NUCLEATED RBC # (test code = NRBC#) 0.00 K/mm3 0.0-0.1 N MANUAL DIFF REQUIRED (test code = MDIFF) NO, ONLY SCAN NEEDED DIFFERENTIAL [id number] 17:24:00* Test Item Value Reference Range Interpretation Comments STAIN ACCEPTABILITY (test code = STN ACCEPTABLE) MORPHOLOGY COMMENT (test code = MOC) PLATELET ESTIMATE (test code = PLTEST) PLATELET MORPHOLOGY (test code = PLTMORPH) CBC W/AUTO [id number] 17:23:00* Test Item Value Reference Range Interpretation Comments WHITE BLOOD CELL (test code = WBC) 8.1 K/mm3 4.5-12.5 N RED BLOOD CELL (test code = RBC) 4.94 mill/mm3 3.7-5.2 N HEMOGLOBIN (test code = HGB) 8.6 gram/dL 11.5-15.5 L HEMATOCRIT (test code = HCT) 30.9 % 36.0-46.0 L MEAN CELL VOLUME (test code = MCV) 62.6 fL 80-98 L MEAN CELL HGB (test code = MCH) 17.4 picogram 27.0-33.0 L MEAN CELL HGB CONCETRATION (test code = MCHC) 27.8 gram/dL 33.0-36. 0 L RED CELL DISTRIBUTION WIDTH (test code = RDW) 21.1 % 11.6-16. 2 H RED CELL DISTRIBUTION WIDTH SD (test code = RDW-SD) 44.4 fL 37 .0-51.0 N PLATELET COUNT (test code = PLT) 363 K/mm3 150-450 N MEAN PLATELET VOLUME (test code = MPV) 8.9 fL 6.7-11.0 N NEUTROPHIL % (test code = NT%) 86.1 % 39.0-69.0 H IMMATURE GRANULOCYTE % (test code = IG%) 0.5 % 0.0-5.0 N LYMPHOCYTE % (test code = LY%) 9.0 % 25.0-55.0 L MONOCYTE % (test code = MO%) 4.3 % 0.0-10.0 N EOSINOPHIL % (test code = EO%) 0.0 % 0.0-5.0 N BASOPHIL % (test code = BA%) 0.1 % 0.0-1.0 N NUCLEATED RBC % (test code = NRBC%) 0.0 % 0-0 N NEUTROPHIL # (test code = NT#) 6.99 K/mm3 1.8-7.7 N IMMATURE GRANULOCYTE # (test code = IG#) 0.04 x10 3/uL 0-0.03 H LYMPHOCYTE # (test code = LY#) 0.73 K/mm3 1.0-5.0 L MONOCYTE # (test code = MO#) 0.35 K/mm3 0-0.8 N EOSINOPHIL # (test code = EO#) 0.00 K/mm3 0.0-0.5 N BASOPHIL # (test code = BA#) 0.01 K/mm3 0.0-0.2 N NUCLEATED RBC # (test code = NRBC#) 0.00 K/mm3 0.0-0.1 N MANUAL DIFF REQUIRED (test code = MDIFF) NO, ONLY SCAN NEEDED DIFFERENTIAL [id number] 17:23:00* Test Item Value Reference Range Interpretation Comments STAIN ACCEPTABILITY (test code = STN ACCEPTABLE) CABOT RINGS (test code = CAB) MORPHOLOGY COMMENT (test code = MOC) PLATELET ESTIMATE (test code = PLTEST) PLATELET MORPHOLOGY (test code = PLTMORPH) CBC W/AUTO [id number] 17:23:00* Test Item Value Reference Range Interpretation Comments WHITE BLOOD CELL (test code = WBC) 8.1 K/mm3 4.5-12.5 N RED BLOOD CELL (test code = RBC) 4.94 mill/mm3 3.7-5.2 N HEMOGLOBIN (test code = HGB) 8.6 gram/dL 11.5-15.5 L HEMATOCRIT (test code = HCT) 30.9 % 36.0-46.0 L MEAN CELL VOLUME (test code = MCV) 62.6 fL 80-98 L MEAN CELL HGB (test code = MCH) 17.4 picogram 27.0-33.0 L MEAN CELL HGB CONCETRATION (test code = MCHC) 27.8 gram/dL 33.0-36. 0 L RED CELL DISTRIBUTION WIDTH (test code = RDW) 21.1 % 11.6-16. 2 H RED CELL DISTRIBUTION WIDTH SD (test code = RDW-SD) 44.4 fL 37 .0-51.0 N PLATELET COUNT (test code = PLT) 363 K/mm3 150-450 N MEAN PLATELET VOLUME (test code = MPV) 8.9 fL 6.7-11.0 N NEUTROPHIL % (test code = NT%) 86.1 % 39.0-69.0 H IMMATURE GRANULOCYTE % (test code = IG%) 0.5 % 0.0-5.0 N LYMPHOCYTE % (test code = LY%) 9.0 % 25.0-55.0 L MONOCYTE % (test code = MO%) 4.3 % 0.0-10.0 N EOSINOPHIL % (test code = EO%) 0.0 % 0.0-5.0 N BASOPHIL % (test code = BA%) 0.1 % 0.0-1.0 N NUCLEATED RBC % (test code = NRBC%) 0.0 % 0-0 N NEUTROPHIL # (test code = NT#) 6.99 K/mm3 1.8-7.7 N IMMATURE GRANULOCYTE # (test code = IG#) 0.04 x10 3/uL 0-0.03 H LYMPHOCYTE # (test code = LY#) 0.73 K/mm3 1.0-5.0 L MONOCYTE # (test code = MO#) 0.35 K/mm3 0-0.8 N EOSINOPHIL # (test code = EO#) 0.00 K/mm3 0.0-0.5 N BASOPHIL # (test code = BA#) 0.01 K/mm3 0.0-0.2 N NUCLEATED RBC # (test code = NRBC#) 0.00 K/mm3 0.0-0.1 N MANUAL DIFF REQUIRED (test code = MDIFF) NO, ONLY SCAN NEEDED DIFFERENTIAL [id number] 17:23:00* Test Item Value Reference Range Interpretation Comments STAIN ACCEPTABILITY (test code = STN ACCEPTABLE) CABOT RINGS (test code = CAB) MORPHOLOGY COMMENT (test code = MOC) PLATELET ESTIMATE (test code = PLTEST) PLATELET MORPHOLOGY (test code = PLTMORPH) CBC W/AUTO [id number] 17:21:00* Test Item Value Reference Range Interpretation Comments WHITE BLOOD CELL (test code = WBC) K/mm3 4.5-12.5 RED BLOOD CELL (test code = RBC) mill/mm3 3.7-5.2 HEMOGLOBIN (test code = HGB) gram/dL 11.5-15.5 HEMATOCRIT (test code = HCT) % 36.0-46.0 MEAN CELL VOLUME (test code = MCV) fL 80-98 MEAN CELL HGB (test code = MCH) picogram 27.0-33.0 MEAN CELL HGB CONCETRATION (test code = MCHC) gram/dL 33.0-36. 0 RED CELL DISTRIBUTION WIDTH (test code = RDW) % 11.6-16. 2 RED CELL DISTRIBUTION WIDTH SD (test code = RDW-SD) fL 37 .0-51.0 PLATELET COUNT (test code = PLT) 363 K/mm3 150-450 N MEAN PLATELET VOLUME (test code = MPV) fL 6.7-11.0 NEUTROPHIL % (test code = NT%) % 39.0-69.0 IMMATURE GRANULOCYTE % (test code = IG%) % 0.0-5.0 LYMPHOCYTE % (test code = LY%) % 25.0-55.0 MONOCYTE % (test code = MO%) % 0.0-10.0 EOSINOPHIL % (test code = EO%) % 0.0-5.0 BASOPHIL % (test code = BA%) % 0.0-1.0 NEUTROPHIL # (test code = NT#) K/mm3 1.8-7.7 LYMPHOCYTE # (test code = LY#) K/mm3 1.0-5.0 MONOCYTE # (test code = MO#) K/mm3 0-0.8 EOSINOPHIL # (test code = EO#) K/mm3 0.0-0.5 BASOPHIL # (test code = BA#) K/mm3 0.0-0.2 Novel Coronavirus 2018 [id number] 12:42:00* Test Item Value Reference Range Interpretation Comments Novel Coronavirus 2019 nCoV (test code = COVID19) POSITIVE Does patient have the clinical criteria consistent with COVID-19? YIs the patien t going to be discharged home? Y- XR CHEST 1 [id number] 23:50:00 FAX: Jessica Benjamin NP [place]: St: REG Name: DIEGO BELL [facility] : [birth year] Age/S: 44/F [address] [facility] Unit #: [id number] Loc: [place] [address] Phys: Jessica Benjamin NP Acct: [id number] Dis Date: Status: REG ER PHONE #: [phone] Exam Date: 04/20/2020 2320 FAX #: [phone] Reason: COUGH EXAMS: CPT CODE: [id number] XR CHEST 1 V 13881 - XR CHEST 1 V, 04/20/2020 11:02 PM Reason For Examination: COUGH Comparison: None levi ilable Location: R16 Findings LUNGS: Patchy groundglass opacities are concerning for a multifocal infect ious process PLEURA: No pleural effusions C ARDIOMEDIASTINAL SILHOUETTE Mild prominence IMPRE SSION: Patchy groundglass opacities are concerning for a multifocal infectious process Electronically Si gned by Denita Jacome M.D. on 04/20/2020 at 23 50 Reported and signed by: Denita tong M.D. CC: Jessica Benjamin NP Technologist: Silvana Borges Trnscrd Hernandez e/Time/By: 04/20/2020 (542) : By: [email or web address] Orig Print D/T: S: 2019 (9705) PAGE 1 Signed Report - CTA [id number] 18:49:00 Name: DIEGO GARCÍA [facility] : 1975 Age/S: 44 / F [address] [facility] Unit #: [id number] Loc: [place] [address] Phys: Rachele Ascencio MD Acct: [id number] Di s Date: Status: REG ER PHONE #: Exam Date: 11/15/20191823 FAX #: Reason: sob, cp EXAMS: CPT CODE: [id number] CTA CHEST 63348 REASON FOR EXAM: sob, cp EXAM ORDER DATE: 11/15/2019 5:36 PM Ordering: Yanira Ascencio MD Attending:Yanira Ascencio MD Location: PROCEDURE: - CTA CHEST FINDINGS: CT images of the chest were obtained with IV contrast using PE protocol. Reconstructed sagittal and coronal images including 3D reconstructions of the chest were provided for interpretation. Dose reduction techniques were applied. In travenous contrast: 100cc of Omnipaque 370. The heart size is with in normal limits. No evidence of pericardial effusion The thoracic aorta is unremarkable. No evidence of dissection or aneurysmal dilatation . No filling defect seen within the main or lobar pulmonary arteries to suggest pulmonary embolus No evidence of mediastinal or hilar adenopat hy The lungs are clear. No evidence of pleural effusion I MPRESSION: No acute findings in the chest. at 1849 Reported and signed b y: Keo Trevino M.D. CC: Yanira Ascencio MD Technologist:Faisal Pak RT(R),CT CTDI: DLP: Daya scb Date/Time: 11/15/2019 (184) LevyVTL Orig Print D/T : S: 11/15/2019 (1091) PAGE 1 Signed Report COMPREHENSIVE METABOLIC [id number] 18:38:00* Test Item Value Reference Range Interpretation Comments SODIUM (test code = NA) 136 mmol/L 136-145 N POTASSIUM (test code = K) 3.6 mmol/L 3.5-5.1 N CHLORIDE (test code = CL) 100 mmol/L 101-109 L CARBON DIOXIDE (test code = CO2) 30.5 mmol/L 21-32 N ANION GAP (test code = GAP) 9 mmol/L 10-20 L GLUCOSE (test code = GLU) 217 mg/dL 74-106 H BLOOD UREA NITROGEN (test code = BUN) 12 mg/dL 3-21 N CREATININE (test code = CREAT) 0.63 mg/dL 0.55-1.3 N BUN/CREATININE RATIO (test code = BUN/CREA) 19.0 10-20 N TOTAL PROTEIN (test code = PROT) 7.7 g/dL 6.5-8.4 N ALBUMIN (test code = ALB) 2.9 g/dL 3.4-4.8 L GLOBULIN (test code = GLOB) 4.8 G/DL 1-10 N ALBUMIN/GLOBULIN RATIO (test code = A/G) 0.60 RATIO 0.75-1.50 L CALCIUM (test code = CA) 8.9 mg/dL 8.4-10.2 N BILIRUBIN TOTAL (test code = BILT) 0.20 mg/dL 0.0-1.0 N SGOT/AST (test code = AST) 10 U/L 6-32 N SGPT/ALT (test code = ALT) 16 U/L 10-69 N ALKALINE PHOSPHATASE TOTAL (test code = ALKP) 75 U/L 38-126 N [id number] 18:38:00* Test Item Value Reference Range Interpretation Comments LIPASE (test code = LIP) 214 U/L 128-270 N HCG SERUM [id number] 18:38:00* Test Item Value Reference Range Interpretation Comments HCG SERUM QUAL (test code = HCGQL) NEGATIVE NEGATIVE This HCGQL test is NOT applicable for MALE patients.Check with nurse about probable order error.If Tumor Marker Test needed, nurse should order test "HCGTU"(Test #[id number]) [id number] 18:38:00* Test Item Value Reference Range Interpretation Comments TROPONIN-I (test code = TROPI) <0.015 ng/mL 0.00-0.056 N CBC W/AUTO [id number] 17:43:00* Test Item Value Reference Range Interpretation Comments WHITE BLOOD CELL (test code = WBC) 5.0 K/mm3 4.5-12.5 N RED BLOOD CELL (test code = RBC) 3.80 mill/mm3 3.7-5.2 N HEMOGLOBIN (test code = HGB) 8.5 gram/dL 11.5-15.5 L HEMATOCRIT (test code = HCT) 28.1 % 36.0-46.0 L MEAN CELL VOLUME (test code = MCV) 73.9 fL 80-98 L MEAN CELL HGB (test code = MCH) 22.4 picogram 27.0-33.0 L MEAN CELL HGB CONCETRATION (test code = MCHC) 30.2 gram/dL 33.0-36. 0 L RED CELL DISTRIBUTION WIDTH (test code = RDW) 20.5 % 11.6-16. 2 H RED CELL DISTRIBUTION WIDTH SD (test code = RDW-SD) 56.1 fL 37 .0-51.0 H PLATELET COUNT (test code = PLT) 434 K/mm3 150-450 N MEAN PLATELET VOLUME (test code = MPV) 8.1 fL 6.7-11.0 N NEUTROPHIL % (test code = NT%) 60.7 % 39.0-69.0 N LYMPHOCYTE % (test code = LY%) 28.9 % 25.0-55.0 N MONOCYTE % (test code = MO%) 9.0 % 0.0-10.0 N EOSINOPHIL % (test code = EO%) 1.0 % 0.0-5.0 N BASOPHIL % (test code = BA%) 0.4 % 0.0-1.0 N NEUTROPHIL # (test code = NT#) 3.05 K/mm3 1.8-7.7 N LYMPHOCYTE # (test code = LY#) 1.45 K/mm3 1.0-5.0 N MONOCYTE # (test code = MO#) 0.45 K/mm3 0-0.8 N EOSINOPHIL # (test code = EO#) 0.05 K/mm3 0.0-0.5 N BASOPHIL # (test code = BA#) 0.02 K/mm3 0.0-0.2 N MANUAL DIFF REQUIRED (test code = MDIFF) NO, ONLY SCAN NEEDED DIFFERENTIAL [id number] 17:43:00* Test Item Value Reference Range Interpretation Comments STAIN ACCEPTABILITY (test code = STN ACCEPTABLE) STAIN ACCEPTABLE HYPOCHROMIA (test code = HYPO) 2+ ANISOCYTOSIS (test code = ANISO) 2+ MORPHOLOGY COMMENT (test code = MOC) NORMAL PLATELET ESTIMATE (test code = PLTEST) ADEQUATE PLATELET MORPHOLOGY (test code = PLTMORPH) NORMAL PROTHROMBIN [id number] 17:33:00* Test Item Value Reference Range Interpretation Comments PROTHROMBIN TIME PATIENT (test code = PTP) 9.7 seconds 9.0-13.0 N INTERNATIONAL NORMAL RATIO (test code = INR) 1.0 0.8-1.2 N The therapeutic range for oral anticoagulant therapy formost indications is an international normalized ratio (INR)of between 2.0 and 3.0. The recommended therapeutic INRrange for various clinical situations is listed below: Clinical Situation INR range Pulmonary e mbolism treatment (2.0-3.0)Venous thrombosis treatmentVenous thrombosis prophylaxis (high risk surgery)Prevention of systemic embolism from: Acute myocardial infarction Valvular heart disease Atrial fibrillation Mechanical prosthetic heart valves (2.5-3.5) IS PATIENT ON ANTICOAGULANTS? NTHROMBOPLASTIN TIME [id number] 17:33:00* Test Item Value Reference Range Interpretation Comments THROMBOPLASTIN TIME PARTIAL (test code = PTT) 21.2 seconds 25.5-34. 3 L Therapeutic Range for patients on Heparin Therapy is 2 to2.5 times their baseline PTT level. IS PATIENT ON ANTICOAGULANTS? NCOMPREHENSIVE METABOLIC [id number] 17:28:00 * Test Item Value Reference Range Interpretation Comments SODIUM (test code = NA) 136 mmol/L 136-145 N POTASSIUM (test code = K) 3.6 mmol/L 3.5-5.1 N CHLORIDE (test code = CL) 100 mmol/L 101-109 L CARBON DIOXIDE (test code = CO2) 30.5 mmol/L 21-32 N ANION GAP (test code = GAP) 9 mmol/L 10-20 L GLUCOSE (test code = GLU) 217 mg/dL 74-106 H BLOOD UREA NITROGEN (test code = BUN) 12 mg/dL 3-21 N CREATININE (test code = CREAT) 0.63 mg/dL 0.55-1.3 N BUN/CREATININE RATIO (test code = BUN/CREA) 19.0 10-20 N TOTAL PROTEIN (test code = PROT) 7.7 g/dL 6.5-8.4 N ALBUMIN (test code = ALB) 2.9 g/dL 3.4-4.8 L GLOBULIN (test code = GLOB) 4.8 G/DL 1-10 N ALBUMIN/GLOBULIN RATIO (test code = A/G) 0.60 RATIO 0.75-1.50 L CALCIUM (test code = CA) 8.9 mg/dL 8.4-10.2 N BILIRUBIN TOTAL (test code = BILT) 0.20 mg/dL 0.0-1.0 N SGOT/AST (test code = AST) 10 U/L 6-32 N SGPT/ALT (test code = ALT) U/L 10-69 ALKALINE PHOSPHATASE TOTAL (test code = ALKP) 75 U/L 38-126 N [id number] 17:28:00* Test Item Value Reference Range Interpretation Comments LIPASE (test code = LIP) 214 U/L 128-270 N HCG SERUM [id number] 17:28:00* Test Item Value Reference Range Interpretation Comments HCG SERUM QUAL (test code = HCGQL) NEGATIVE NEGATIVE This HCGQL test is NOT applicable for MALE patients.Check with nurse about probable order error.If Tumor Marker Test needed, nurse should order test "HCGTU"(Test #550.03617) [id number] 17:28:00* Test Item Value Reference Range Interpretation Comments TROPONIN-I (test code = TROPI) <0.015 ng/mL 0.00-0.056 N COMPREHENSIVE METABOLIC [id number] 17:23:00* Test Item Value Reference Range Interpretation Comments SODIUM (test code = NA) 136 mmol/L 136-145 N POTASSIUM (test code = K) 3.6 mmol/L 3.5-5.1 N CHLORIDE (test code = CL) 100 mmol/L 101-109 L CARBON DIOXIDE (test code = CO2) 30.5 mmol/L 21-32 N ANION GAP (test code = GAP) 9 mmol/L 10-20 L GLUCOSE (test code = GLU) 217 mg/dL 74-106 H BLOOD UREA NITROGEN (test code = BUN) 12 mg/dL 3-21 N CREATININE (test code = CREAT) 0.63 mg/dL 0.55-1.3 N BUN/CREATININE RATIO (test code = BUN/CREA) 19.0 10-20 N TOTAL PROTEIN (test code = PROT) gram/dL 6.4-8.2 ALBUMIN (test code = ALB) g/dL 3.4-5.0 GLOBULIN (test code = GLOB) g/dL 2.7-4.2 ALBUMIN/GLOBULIN RATIO (test code = A/G) 0.75-1.50 CALCIUM (test code = CA) 8.9 mg/dL 8.4-10.2 N BILIRUBIN TOTAL (test code = BILT) mg/dL 0.2-1.2 SGOT/AST (test code = AST) IUnit/L 15-37 SGPT/ALT (test code = ALT) U/L 10-69 ALKALINE PHOSPHATASE TOTAL (test code = ALKP) IUnit/L 45-117 [id number] 17:23:00* Test Item Value Reference Range Interpretation Comments LIPASE (test code = LIP) Unit/L 144-286 HCG SERUM [id number] 17:23:00* Test Item Value Reference Range Interpretation Comments HCG SERUM QUAL (test code = HCGQL) NEGATIVE NEGATIVE This HCGQL test is NOT applicable for MALE patients.Check with nurse about probable order error.If Tumor Marker Test needed, nurse should order test "HCGTU"(Test #550.48249) [id number] 17:23:00* Test Item Value Reference Range Interpretation Comments TROPONIN-I (test code = TROPI) ng/mL 0-0.045 COMPREHENSIVE METABOLIC [id number] 17:17:00* Test Item Value Reference Range Interpretation Comments SODIUM (test code = NA) 136 mmol/L 136-145 N POTASSIUM (test code = K) 3.6 mmol/L 3.5-5.1 N CHLORIDE (test code = CL) 100 mmol/L 101-109 L CARBON DIOXIDE (test code = CO2) 30.5 mmol/L 21-32 N ANION GAP (test code = GAP) 9 mmol/L 10-20 L GLUCOSE (test code = GLU) 217 mg/dL 74-106 H BLOOD UREA NITROGEN (test code = BUN) 12 mg/dL 3-21 N CREATININE (test code = CREAT) 0.63 mg/dL 0.55-1.3 N BUN/CREATININE RATIO (test code = BUN/CREA) 19.0 10-20 N TOTAL PROTEIN (test code = PROT) gram/dL 6.4-8.2 ALBUMIN (test code = ALB) g/dL 3.4-5.0 GLOBULIN (test code = GLOB) g/dL 2.7-4.2 ALBUMIN/GLOBULIN RATIO (test code = A/G) 0.75-1.50 CALCIUM (test code = CA) 8.9 mg/dL 8.4-10.2 N BILIRUBIN TOTAL (test code = BILT) mg/dL 0.2-1.2 SGOT/AST (test code = AST) IUnit/L 15-37 SGPT/ALT (test code = ALT) U/L 10-69 ALKALINE PHOSPHATASE TOTAL (test code = ALKP) IUnit/L 45-117 [id number] 17:17:00* Test Item Value Reference Range Interpretation Comments LIPASE (test code = LIP) Unit/L 144-286 HCG SERUM [id number] 17:17:00* Test Item Value Reference Range Interpretation Comments HCG SERUM QUAL (test code = HCGQL) NEGATIVE [id number] 17:17:00* Test Item Value Reference Range Interpretation Comments TROPONIN-I (test code = TROPI) ng/mL 0-0.045 CBC W/AUTO [id number] 17:14:00* Test Item Value Reference Range Interpretation Comments WHITE BLOOD CELL (test code = WBC) 5.0 K/mm3 4.5-12.5 N RED BLOOD CELL (test code = RBC) 3.80 mill/mm3 3.7-5.2 N HEMOGLOBIN (test code = HGB) 8.5 gram/dL 11.5-15.5 L HEMATOCRIT (test code = HCT) 28.1 % 36.0-46.0 L MEAN CELL VOLUME (test code = MCV) 73.9 fL 80-98 L MEAN CELL HGB (test code = MCH) 22.4 picogram 27.0-33.0 L MEAN CELL HGB CONCETRATION (test code = MCHC) 30.2 gram/dL 33.0-36. 0 L RED CELL DISTRIBUTION WIDTH (test code = RDW) 20.5 % 11.6-16. 2 H RED CELL DISTRIBUTION WIDTH SD (test code = RDW-SD) 56.1 fL 37 .0-51.0 H PLATELET COUNT (test code = PLT) 434 K/mm3 150-450 N MEAN PLATELET VOLUME (test code = MPV) 8.1 fL 6.7-11.0 N NEUTROPHIL % (test code = NT%) 60.7 % 39.0-69.0 N LYMPHOCYTE % (test code = LY%) 28.9 % 25.0-55.0 N MONOCYTE % (test code = MO%) 9.0 % 0.0-10.0 N EOSINOPHIL % (test code = EO%) 1.0 % 0.0-5.0 N BASOPHIL % (test code = BA%) 0.4 % 0.0-1.0 N NEUTROPHIL # (test code = NT#) 3.05 K/mm3 1.8-7.7 N LYMPHOCYTE # (test code = LY#) 1.45 K/mm3 1.0-5.0 N MONOCYTE # (test code = MO#) 0.45 K/mm3 0-0.8 N EOSINOPHIL # (test code = EO#) 0.05 K/mm3 0.0-0.5 N BASOPHIL # (test code = BA#) 0.02 K/mm3 0.0-0.2 N MANUAL DIFF REQUIRED (test code = MDIFF) NO, ONLY SCAN NEEDED DIFFERENTIAL [id number] 17:14:00* Test Item Value Reference Range Interpretation Comments STAIN ACCEPTABILITY (test code = STN ACCEPTABLE) CABOT RINGS (test code = CAB) MORPHOLOGY COMMENT (test code = MOC) PLATELET ESTIMATE (test code = PLTEST) PLATELET MORPHOLOGY (test code = PLTMORPH) CBC W/AUTO [id number] 17:14:00* Test Item Value Reference Range Interpretation Comments WHITE BLOOD CELL (test code = WBC) 5.0 K/mm3 4.5-12.5 N RED BLOOD CELL (test code = RBC) 3.80 mill/mm3 3.7-5.2 N HEMOGLOBIN (test code = HGB) 8.5 gram/dL 11.5-15.5 L HEMATOCRIT (test code = HCT) 28.1 % 36.0-46.0 L MEAN CELL VOLUME (test code = MCV) 73.9 fL 80-98 L MEAN CELL HGB (test code = MCH) 22.4 picogram 27.0-33.0 L MEAN CELL HGB CONCETRATION (test code = MCHC) 30.2 gram/dL 33.0-36. 0 L RED CELL DISTRIBUTION WIDTH (test code = RDW) 20.5 % 11.6-16. 2 H RED CELL DISTRIBUTION WIDTH SD (test code = RDW-SD) 56.1 fL 37 .0-51.0 H PLATELET COUNT (test code = PLT) 434 K/mm3 150-450 N MEAN PLATELET VOLUME (test code = MPV) 8.1 fL 6.7-11.0 N NEUTROPHIL % (test code = NT%) 60.7 % 39.0-69.0 N LYMPHOCYTE % (test code = LY%) 28.9 % 25.0-55.0 N MONOCYTE % (test code = MO%) 9.0 % 0.0-10.0 N EOSINOPHIL % (test code = EO%) 1.0 % 0.0-5.0 N BASOPHIL % (test code = BA%) 0.4 % 0.0-1.0 N NEUTROPHIL # (test code = NT#) 3.05 K/mm3 1.8-7.7 N LYMPHOCYTE # (test code = LY#) 1.45 K/mm3 1.0-5.0 N MONOCYTE # (test code = MO#) 0.45 K/mm3 0-0.8 N EOSINOPHIL # (test code = EO#) 0.05 K/mm3 0.0-0.5 N BASOPHIL # (test code = BA#) 0.02 K/mm3 0.0-0.2 N MANUAL DIFF REQUIRED (test code = MDIFF) NO, ONLY SCAN NEEDED DIFFERENTIAL [id number] 17:14:00* Test Item Value Reference Range Interpretation Comments STAIN ACCEPTABILITY (test code = STN ACCEPTABLE) MORPHOLOGY COMMENT (test code = MOC) PLATELET ESTIMATE (test code = PLTEST) PLATELET MORPHOLOGY (test code = PLTMORPH) CBC W/AUTO [id number] 17:13:00* Test Item Value Reference Range Interpretation Comments WHITE BLOOD CELL (test code = WBC) 5.0 K/mm3 4.5-12.5 N RED BLOOD CELL (test code = RBC) 3.80 mill/mm3 3.7-5.2 N HEMOGLOBIN (test code = HGB) 8.5 gram/dL 11.5-15.5 L HEMATOCRIT (test code = HCT) 28.1 % 36.0-46.0 L MEAN CELL VOLUME (test code = MCV) 73.9 fL 80-98 L MEAN CELL HGB (test code = MCH) 22.4 picogram 27.0-33.0 L MEAN CELL HGB CONCETRATION (test code = MCHC) 30.2 gram/dL 33.0-36. 0 L RED CELL DISTRIBUTION WIDTH (test code = RDW) 20.5 % 11.6-16. 2 H RED CELL DISTRIBUTION WIDTH SD (test code = RDW-SD) 56.1 fL 37 .0-51.0 H PLATELET COUNT (test code = PLT) 434 K/mm3 150-450 N MEAN PLATELET VOLUME (test code = MPV) 8.1 fL 6.7-11.0 N NEUTROPHIL % (test code = NT%) 60.7 % 39.0-69.0 N LYMPHOCYTE % (test code = LY%) 28.9 % 25.0-55.0 N MONOCYTE % (test code = MO%) 9.0 % 0.0-10.0 N EOSINOPHIL % (test code = EO%) 1.0 % 0.0-5.0 N BASOPHIL % (test code = BA%) 0.4 % 0.0-1.0 N NEUTROPHIL # (test code = NT#) 3.05 K/mm3 1.8-7.7 N LYMPHOCYTE # (test code = LY#) 1.45 K/mm3 1.0-5.0 N MONOCYTE # (test code = MO#) 0.45 K/mm3 0-0.8 N EOSINOPHIL # (test code = EO#) 0.05 K/mm3 0.0-0.5 N BASOPHIL # (test code = BA#) 0.02 K/mm3 0.0-0.2 N MANUAL DIFF REQUIRED (test code = MDIFF) NO, ONLY SCAN NEEDED DIFFERENTIAL [id number] 17:13:00* Test Item Value Reference Range Interpretation Comments STAIN ACCEPTABILITY (test code = STN ACCEPTABLE) CABOT RINGS (test code = CAB) MORPHOLOGY COMMENT (test code = MOC) PLATELET ESTIMATE (test code = PLTEST) PLATELET MORPHOLOGY (test code = PLTMORPH) CBC W/AUTO [id number] 17:13:00* Test Item Value Reference Range Interpretation Comments WHITE BLOOD CELL (test code = WBC) 5.0 K/mm3 4.5-12.5 N RED BLOOD CELL (test code = RBC) 3.80 mill/mm3 3.7-5.2 N HEMOGLOBIN (test code = HGB) 8.5 gram/dL 11.5-15.5 L HEMATOCRIT (test code = HCT) 28.1 % 36.0-46.0 L MEAN CELL VOLUME (test code = MCV) 73.9 fL 80-98 L MEAN CELL HGB (test code = MCH) 22.4 picogram 27.0-33.0 L MEAN CELL HGB CONCETRATION (test code = MCHC) 30.2 gram/dL 33.0-36. 0 L RED CELL DISTRIBUTION WIDTH (test code = RDW) 20.5 % 11.6-16. 2 H RED CELL DISTRIBUTION WIDTH SD (test code = RDW-SD) 56.1 fL 37 .0-51.0 H PLATELET COUNT (test code = PLT) 434 K/mm3 150-450 N MEAN PLATELET VOLUME (test code = MPV) 8.1 fL 6.7-11.0 N NEUTROPHIL % (test code = NT%) 60.7 % 39.0-69.0 N LYMPHOCYTE % (test code = LY%) 28.9 % 25.0-55.0 N MONOCYTE % (test code = MO%) 9.0 % 0.0-10.0 N EOSINOPHIL % (test code = EO%) 1.0 % 0.0-5.0 N BASOPHIL % (test code = BA%) 0.4 % 0.0-1.0 N NEUTROPHIL # (test code = NT#) 3.05 K/mm3 1.8-7.7 N LYMPHOCYTE # (test code = LY#) 1.45 K/mm3 1.0-5.0 N MONOCYTE # (test code = MO#) 0.45 K/mm3 0-0.8 N EOSINOPHIL # (test code = EO#) 0.05 K/mm3 0.0-0.5 N BASOPHIL # (test code = BA#) 0.02 K/mm3 0.0-0.2 N MANUAL DIFF REQUIRED (test code = MDIFF) NO, ONLY SCAN NEEDED DIFFERENTIAL [id number] 17:13:00* Test Item Value Reference Range Interpretation Comments STAIN ACCEPTABILITY (test code = STN ACCEPTABLE) CABOT RINGS (test code = CAB) MORPHOLOGY COMMENT (test code = MOC) PLATELET ESTIMATE (test code = PLTEST) PLATELET MORPHOLOGY (test code = PLTMORPH) CBC W/MANUAL [id number] 14:23:00* Test Item Value Reference Range Interpretation Comments WHITE BLOOD CELL (test code = WBC) 5.8 K/mm3 4.5-12.5 N RED BLOOD CELL (test code = RBC) 4.16 mill/mm3 3.7-5.2 N HEMOGLOBIN (test code = HGB) 9.4 gram/dL 11.5-15.5 L HEMATOCRIT (test code = HCT) 30.9 % 36.0-46.0 L MEAN CELL VOLUME (test code = MCV) 74.3 fL 80-98 L MEAN CELL HGB (test code = MCH) 22.6 picogram 27.0-33.0 L MEAN CELL HGB CONCETRATION (test code = MCHC) 30.4 gram/dL 33.0-36. 0 L RED CELL DISTRIBUTION WIDTH (test code = RDW) 22.5 % 11.6-16. 2 H RED CELL DISTRIBUTION WIDTH SD (test code = RDW-SD) 59.3 fL 37 .0-51.0 H PLATELET COUNT (test code = PLT) 402 K/mm3 150-450 N MEAN PLATELET VOLUME (test code = MPV) 8.4 fL 6.7-11.0 N IMMATURE GRANULOCYTE % (test code = IG%) 0.2 % 0.0-5.0 N NUCLEATED RBC % (test code = NRBC%) 0.0 % 0-0 N NEUTROPHIL # (test code = NT#) 3.60 K/mm3 1.8-7.7 N IMMATURE GRANULOCYTE # (test code = IG#) 0.01 x10 3/uL 0-0.03 N LYMPHOCYTE # (test code = LY#) 1.65 K/mm3 1.0-5.0 N MONOCYTE # (test code = MO#) 0.49 K/mm3 0-0.8 N EOSINOPHIL # (test code = EO#) 0.07 K/mm3 0.0-0.5 N BASOPHIL # (test code = BA#) 0.02 K/mm3 0.0-0.2 N NUCLEATED RBC # (test code = NRBC#) 0.00 K/mm3 0.0-0.1 N MANUAL DIFF REQUIRED (test code = MDIFF) YES STAIN ACCEPTABILITY (test code = STN ACCEPTABLE) STAIN ACCEPTABLE TOTAL CELLS COUNTED (test code = TCC) 115 #CELLS SEGMENTED NEUTROPHILS (test code = SEG) 74.8 % 39-69 H BAND NEUTROPHIL (test code = BAND) 0 % 0-10 N LYMPHOCYTE (test code = LYMPH) 14.8 % 25-55 L REACTIVE LYMPH (test code = RELYMPH) 6.9 % MONOCYTE (test code = MON) 3.5 % 0-10 N EOSINOPHIL (test code = EOS) 0 % 0.0-5.0 N BASOPHIL (test code = BASO) 0 % 0-1.0 N METAMYELOCYTE (test code = META) 0 % 0-0 N MYELOCYTE (test code = MYELO) 0 % 0.0-0.0 N PROMYELOCYTE (test code = PROM) 0 % 0-0 N POLYCHROMASIA (test code = POLC) 3+ HYPOCHROMIA (test code = HYPO) 1+ ANISOCYTOSIS (test code = ANISO) 1+ MICROCYTOSIS (test code = MICR) 1+ PLATELET ESTIMATE (test code = PLTEST) ADEQUATE PLATELET MORPHOLOGY (test code = PLTMORPH) NORMAL IMMATURE FORMS (test code = IMMAT) 0 % 0-0 N BASIC METABOLIC [id number] 14:15:00* Test Item Value Reference Range Interpretation Comments SODIUM (test code = NA) 135 mmol/L 136-145 L POTASSIUM (test code = K) 3.9 mmol/L 3.5-5.1 N CHLORIDE (test code = CL) 105.0 mmol/L 98-107 N CARBON DIOXIDE (test code = CO2) 25.0 mmol/L 21-32 N ANION GAP (test code = GAP) 8.9 10-20 L GLUCOSE (test code = GLU) 214 mg/dL 74-106 H BLOOD UREA NITROGEN (test code = BUN) 9 mg/dL 7-18 N GLOMERULAR FILTRATION RATE (test code = GFR) > 60 mL/min >=60 Estimated GFR by using Modified MDRD formula.Chronic kidney disease is defined as either kidney damageor GFR <60 mL/min/1.73 m2 for >3 months. CREATININE (test code = CREAT) 0.50 mg/dL 0.55-1.02 L Note change in reference range due to change in reagent. BUN/CREATININE RATIO (test code = BUN/CREA) 18.0 10-20 N CALCIUM (test code = CA) 8.9 mg/dL 8.5-10.1 N BASIC METABOLIC [id number] 14:11:00* Test Item Value Reference Range Interpretation Comments SODIUM (test code = NA) 135 mmol/L 136-145 L POTASSIUM (test code = K) 3.9 mmol/L 3.5-5.1 N CHLORIDE (test code = CL) 105.0 mmol/L 98-107 N CARBON DIOXIDE (test code = CO2) mmol/L 21-32 ANION GAP (test code = GAP) 10-20 GLUCOSE (test code = GLU) mg/dL 74-106 BLOOD UREA NITROGEN (test code = BUN) mg/dL 7-18 GLOMERULAR FILTRATION RATE (test code = GFR) mL/min >=60 CREATININE (test code = CREAT) mg/dL 0.55-1.02 BUN/CREATININE RATIO (test code = BUN/CREA) 10-20 CALCIUM (test code = CA) mg/dL 8.5-10.1 CBC W/MANUAL [id number] 14:03:00* Test Item Value Reference Range Interpretation Comments WHITE BLOOD CELL (test code = WBC) 5.8 K/mm3 4.5-12.5 N RED BLOOD CELL (test code = RBC) 4.16 mill/mm3 3.7-5.2 N HEMOGLOBIN (test code = HGB) 9.4 gram/dL 11.5-15.5 L HEMATOCRIT (test code = HCT) 30.9 % 36.0-46.0 L MEAN CELL VOLUME (test code = MCV) 74.3 fL 80-98 L MEAN CELL HGB (test code = MCH) 22.6 picogram 27.0-33.0 L MEAN CELL HGB CONCETRATION (test code = MCHC) 30.4 gram/dL 33.0-36. 0 L RED CELL DISTRIBUTION WIDTH (test code = RDW) 22.5 % 11.6-16. 2 H RED CELL DISTRIBUTION WIDTH SD (test code = RDW-SD) 59.3 fL 37 .0-51.0 H PLATELET COUNT (test code = PLT) 402 K/mm3 150-450 N MEAN PLATELET VOLUME (test code = MPV) 8.4 fL 6.7-11.0 N IMMATURE GRANULOCYTE % (test code = IG%) 0.2 % 0.0-5.0 N NUCLEATED RBC % (test code = NRBC%) 0.0 % 0-0 N NEUTROPHIL # (test code = NT#) 3.60 K/mm3 1.8-7.7 N IMMATURE GRANULOCYTE # (test code = IG#) 0.01 x10 3/uL 0-0.03 N LYMPHOCYTE # (test code = LY#) 1.65 K/mm3 1.0-5.0 N MONOCYTE # (test code = MO#) 0.49 K/mm3 0-0.8 N EOSINOPHIL # (test code = EO#) 0.07 K/mm3 0.0-0.5 N BASOPHIL # (test code = BA#) 0.02 K/mm3 0.0-0.2 N NUCLEATED RBC # (test code = NRBC#) 0.00 K/mm3 0.0-0.1 N MANUAL DIFF REQUIRED (test code = MDIFF) YES STAIN ACCEPTABILITY (test code = STN ACCEPTABLE) TOTAL CELLS COUNTED (test code = TCC) #CELLS SEGMENTED NEUTROPHILS (test code = SEG) % 39-69 LYMPHOCYTE (test code = LYMPH) % 25-55 MONOCYTE (test code = MON) % 0-10 MORPHOLOGY COMMENT (test code = MOC) PLATELET ESTIMATE (test code = PLTEST) PLATELET MORPHOLOGY (test code = PLTMORPH) CBC W/MANUAL [id number] 14:00:00* Test Item Value Reference Range Interpretation Comments WHITE BLOOD CELL (test code = WBC) 5.8 K/mm3 4.5-12.5 N RED BLOOD CELL (test code = RBC) 4.16 mill/mm3 3.7-5.2 N HEMOGLOBIN (test code = HGB) 9.4 gram/dL 11.5-15.5 L HEMATOCRIT (test code = HCT) 30.9 % 36.0-46.0 L MEAN CELL VOLUME (test code = MCV) 74.3 fL 80-98 L MEAN CELL HGB (test code = MCH) 22.6 picogram 27.0-33.0 L MEAN CELL HGB CONCETRATION (test code = MCHC) 30.4 gram/dL 33.0-36. 0 L RED CELL DISTRIBUTION WIDTH (test code = RDW) 22.5 % 11.6-16. 2 H RED CELL DISTRIBUTION WIDTH SD (test code = RDW-SD) 59.3 fL 37 .0-51.0 H PLATELET COUNT (test code = PLT) 402 K/mm3 150-450 N MEAN PLATELET VOLUME (test code = MPV) 8.4 fL 6.7-11.0 N IMMATURE GRANULOCYTE % (test code = IG%) 0.2 % 0.0-5.0 N NUCLEATED RBC % (test code = NRBC%) 0.0 % 0-0 N NEUTROPHIL # (test code = NT#) 3.60 K/mm3 1.8-7.7 N IMMATURE GRANULOCYTE # (test code = IG#) 0.01 x10 3/uL 0-0.03 N LYMPHOCYTE # (test code = LY#) 1.65 K/mm3 1.0-5.0 N MONOCYTE # (test code = MO#) 0.49 K/mm3 0-0.8 N EOSINOPHIL # (test code = EO#) 0.07 K/mm3 0.0-0.5 N BASOPHIL # (test code = BA#) 0.02 K/mm3 0.0-0.2 N NUCLEATED RBC # (test code = NRBC#) 0.00 K/mm3 0.0-0.1 N MANUAL DIFF REQUIRED (test code = MDIFF) YES STAIN ACCEPTABILITY (test code = STN ACCEPTABLE) TOTAL CELLS COUNTED (test code = TCC) #CELLS SEGMENTED NEUTROPHILS (test code = SEG) % 39-69 LYMPHOCYTE (test code = LYMPH) % 25-55 MONOCYTE (test code = MON) % 0-10 EOSINOPHIL (test code = EOS) % 0.0-5.0 CABOT RINGS (test code = CAB) MORPHOLOGY COMMENT (test code = MOC) PLATELET ESTIMATE (test code = PLTEST) PLATELET MORPHOLOGY (test code = PLTMORPH) CBC W/MANUAL [id number] 14:00:00* Test Item Value Reference Range Interpretation Comments WHITE BLOOD CELL (test code = WBC) 5.8 K/mm3 4.5-12.5 N RED BLOOD CELL (test code = RBC) 4.16 mill/mm3 3.7-5.2 N HEMOGLOBIN (test code = HGB) 9.4 gram/dL 11.5-15.5 L HEMATOCRIT (test code = HCT) 30.9 % 36.0-46.0 L MEAN CELL VOLUME (test code = MCV) 74.3 fL 80-98 L MEAN CELL HGB (test code = MCH) 22.6 picogram 27.0-33.0 L MEAN CELL HGB CONCETRATION (test code = MCHC) 30.4 gram/dL 33.0-36. 0 L RED CELL DISTRIBUTION WIDTH (test code = RDW) 22.5 % 11.6-16. 2 H RED CELL DISTRIBUTION WIDTH SD (test code = RDW-SD) 59.3 fL 37 .0-51.0 H PLATELET COUNT (test code = PLT) 402 K/mm3 150-450 N MEAN PLATELET VOLUME (test code = MPV) 8.4 fL 6.7-11.0 N IMMATURE GRANULOCYTE % (test code = IG%) 0.2 % 0.0-5.0 N NUCLEATED RBC % (test code = NRBC%) 0.0 % 0-0 N NEUTROPHIL # (test code = NT#) 3.60 K/mm3 1.8-7.7 N IMMATURE GRANULOCYTE # (test code = IG#) 0.01 x10 3/uL 0-0.03 N LYMPHOCYTE # (test code = LY#) 1.65 K/mm3 1.0-5.0 N MONOCYTE # (test code = MO#) 0.49 K/mm3 0-0.8 N EOSINOPHIL # (test code = EO#) 0.07 K/mm3 0.0-0.5 N BASOPHIL # (test code = BA#) 0.02 K/mm3 0.0-0.2 N NUCLEATED RBC # (test code = NRBC#) 0.00 K/mm3 0.0-0.1 N MANUAL DIFF REQUIRED (test code = MDIFF) YES STAIN ACCEPTABILITY (test code = STN ACCEPTABLE) TOTAL CELLS COUNTED (test code = TCC) #CELLS SEGMENTED NEUTROPHILS (test code = SEG) % 39-69 LYMPHOCYTE (test code = LYMPH) % 25-55 MONOCYTE (test code = MON) % 0-10 EOSINOPHIL (test code = EOS) % 0.0-5.0 CABOT RINGS (test code = CAB) MORPHOLOGY COMMENT (test code = MOC) PLATELET ESTIMATE (test code = PLTEST) PLATELET MORPHOLOGY (test code = PLTMORPH) CBC W/MANUAL [id number] 14:00:00* Test Item Value Reference Range Interpretation Comments WHITE BLOOD CELL (test code = WBC) 5.8 K/mm3 4.5-12.5 N RED BLOOD CELL (test code = RBC) 4.16 mill/mm3 3.7-5.2 N HEMOGLOBIN (test code = HGB) 9.4 gram/dL 11.5-15.5 L HEMATOCRIT (test code = HCT) 30.9 % 36.0-46.0 L MEAN CELL VOLUME (test code = MCV) 74.3 fL 80-98 L MEAN CELL HGB (test code = MCH) 22.6 picogram 27.0-33.0 L MEAN CELL HGB CONCETRATION (test code = MCHC) 30.4 gram/dL 33.0-36. 0 L RED CELL DISTRIBUTION WIDTH (test code = RDW) 22.5 % 11.6-16. 2 H RED CELL DISTRIBUTION WIDTH SD (test code = RDW-SD) 59.3 fL 37 .0-51.0 H PLATELET COUNT (test code = PLT) 402 K/mm3 150-450 N MEAN PLATELET VOLUME (test code = MPV) 8.4 fL 6.7-11.0 N IMMATURE GRANULOCYTE % (test code = IG%) 0.2 % 0.0-5.0 N NUCLEATED RBC % (test code = NRBC%) 0.0 % 0-0 N NEUTROPHIL # (test code = NT#) 3.60 K/mm3 1.8-7.7 N IMMATURE GRANULOCYTE # (test code = IG#) 0.01 x10 3/uL 0-0.03 N LYMPHOCYTE # (test code = LY#) 1.65 K/mm3 1.0-5.0 N MONOCYTE # (test code = MO#) 0.49 K/mm3 0-0.8 N EOSINOPHIL # (test code = EO#) 0.07 K/mm3 0.0-0.5 N BASOPHIL # (test code = BA#) 0.02 K/mm3 0.0-0.2 N NUCLEATED RBC # (test code = NRBC#) 0.00 K/mm3 0.0-0.1 N MANUAL DIFF REQUIRED (test code = MDIFF) YES STAIN ACCEPTABILITY (test code = STN ACCEPTABLE) TOTAL CELLS COUNTED (test code = TCC) #CELLS SEGMENTED NEUTROPHILS (test code = SEG) % 39-69 LYMPHOCYTE (test code = LYMPH) % 25-55 MONOCYTE (test code = MON) % 0-10 EOSINOPHIL (test code = EOS) % 0.0-5.0 MORPHOLOGY COMMENT (test code = MOC) PLATELET ESTIMATE (test code = PLTEST) PLATELET MORPHOLOGY (test code = PLTMORPH) CBC W/MANUAL [id number] 14:00:00* Test Item Value Reference Range Interpretation Comments WHITE BLOOD CELL (test code = WBC) 5.8 K/mm3 4.5-12.5 N RED BLOOD CELL (test code = RBC) 4.16 mill/mm3 3.7-5.2 N HEMOGLOBIN (test code = HGB) 9.4 gram/dL 11.5-15.5 L HEMATOCRIT (test code = HCT) 30.9 % 36.0-46.0 L MEAN CELL VOLUME (test code = MCV) 74.3 fL 80-98 L MEAN CELL HGB (test code = MCH) 22.6 picogram 27.0-33.0 L MEAN CELL HGB CONCETRATION (test code = MCHC) 30.4 gram/dL 33.0-36. 0 L RED CELL DISTRIBUTION WIDTH (test code = RDW) 22.5 % 11.6-16. 2 H RED CELL DISTRIBUTION WIDTH SD (test code = RDW-SD) 59.3 fL 37 .0-51.0 H PLATELET COUNT (test code = PLT) 402 K/mm3 150-450 N MEAN PLATELET VOLUME (test code = MPV) 8.4 fL 6.7-11.0 N IMMATURE GRANULOCYTE % (test code = IG%) 0.2 % 0.0-5.0 N NUCLEATED RBC % (test code = NRBC%) 0.0 % 0-0 N NEUTROPHIL # (test code = NT#) 3.60 K/mm3 1.8-7.7 N IMMATURE GRANULOCYTE # (test code = IG#) 0.01 x10 3/uL 0-0.03 N LYMPHOCYTE # (test code = LY#) 1.65 K/mm3 1.0-5.0 N MONOCYTE # (test code = MO#) 0.49 K/mm3 0-0.8 N EOSINOPHIL # (test code = EO#) 0.07 K/mm3 0.0-0.5 N BASOPHIL # (test code = BA#) 0.02 K/mm3 0.0-0.2 N NUCLEATED RBC # (test code = NRBC#) 0.00 K/mm3 0.0-0.1 N MANUAL DIFF REQUIRED (test code = MDIFF) YES STAIN ACCEPTABILITY (test code = STN ACCEPTABLE) TOTAL CELLS COUNTED (test code = TCC) #CELLS SEGMENTED NEUTROPHILS (test code = SEG) % 39-69 LYMPHOCYTE (test code = LYMPH) % 25-55 MONOCYTE (test code = MON) % 0-10 EOSINOPHIL (test code = EOS) % 0.0-5.0 CABOT RINGS (test code = CAB) MORPHOLOGY COMMENT (test code = MOC) PLATELET ESTIMATE (test code = PLTEST) PLATELET MORPHOLOGY (test code = PLTMORPH) - US GUIDANCE [facility] [id number] 14:30:00 Name: DIEGO GARCÍA [facility] : 1975 Age/S: 44 / F [address] [facility] Unit #: [id number] Loc: [place] [address] Phys: Radha Mccormack MD Acct: [id number] Dis Date: [id number] Status: DIS IN PHONE #: [phone] Exam Date: 10/03/2019 1540 FAX #: [phone] Reason: EXAMS: CPT CODE: [id number] US GUIDANCE VASC ACCESS [id number] Fluoro Time: DAP (Gy m2): Air Kerma (mGy): REASON FOR EXAM:Saddle pulmonary embolus, shortness of breath PROCEDURE: 1. Ultrasound-guided vascular access of the right common femoral vein 2. Pulmonary arteriogram 3. Mechanical pulmonary embolectomy of the right and left pulmonary arteries 4. Inferior venacavogram and placement of inferior vena cava filter Anesthesia: General Anesthesiologist: Dr. Cruz FINDINGS: Prior to the procedure, informed consent was obtained after risks and benefits of the procedure were explained to the patient. The patient agreed and wanted to proceed. The patient was brought to special procedures and placed supine on the table. The right groin was prepped was draped in the usual fashion. All elements of maximal sterile barrier techniques were applied. Ultrasound demonstrates patency of the right common femoral vein. Images of the vein were submitted to PACS. Under r eal time ultrasound guidance, a micropuncture needle was used to access th e vein. A 5 [place] fossa sheath was inserted. A Cobra catheter was advance d over the guidewire into the main pulmonary artery. An Omni Flush cathete r was then exchanged. Pulmonary angiogram shows large saddle pulmonary emb naye. Pulmonary arterial mean pressure was 43 mmHg. The tract was dilated to accept and Inari pulmonary embolectomy sheath was advanced into the left main pulmonary artery. Large clots were removed. The sheath was then repositioned to the right pulmonary artery. Additional large she ath was removed. Post embolectomy pulmonary arterial mean pressure was 33 mmHg. An inferior vena cavogram shows normal sized IVC. An IVC sandrine ter was deployed in the infrarenal segment. MEDICATIONS: Non e COMPLICATIONS: None Blood loss: Less than 50 mL Fluo roscopic time: 913 seconds Radiation dose: 228 mGy IMPRESS ION: Technical successful pulmonary embolectomy of the main, left, and r ight pulmonary arteries. Technically successful placement of inferior ve na cava filter. PAGE 1 Signed Report (CONTINUED) Name: DIEGO GARCÍA [facility] : 1975 Age/S: 44 / F [address] Unit #: [id number] Loc: [place] [address] P hys: Radha Mccormack MD Acct: V [id number] Dis Date: 20191008 Status: DIS IN PHONE #: [phone] Exam Date: 10/03/2019 1540 F AX #: [phone] Reason: EXAMS: CPT CODE: [id number] US GUIDANCE VAS ACCESS [id number] Fluoro Time: DAP (Gy m2): Air Kerma (mGy): <Continued> at 1430 Reported and signed by: Keo Trevino M.D. CC: Radha Mccormack MD Technologist: Dannie North RT(R) Trnscb Date/Time: 10/10/2019 (1430) [email or web address] Orig Print D/T: S: 10/10/2019 (1433) PAGE 2 Signed Report - SP VENOCAVAGM [id number] 14:30:00 Name: DIEGO GARCÍA [facility] : 1975 Age/S: 44 / F [address] Unit #: [id number] Loc: [place] [address] Phys: Radha Mccormcak MD Acct: [id number] Dis Date: 20191008 Status: DIS IN PHONE #: [phone] Exam Date: 10/03/2019 1540 FAX #: [phone] Reason: EXAMS: CPT CODE: [id number] SP VENOCAVAGM INF 85250 Fluoro Time: 913 DAP (Gy m2): 83.01 Air Kerma (mGy): 228 REASON FOR EXAM:Saddle pulmonary embolus, shortness of breath PROCEDURE: 1. Ultrasound-guided vascular access of the right common femoral vein 2. Pulmonary arteriogram 3. Mechanical pulmonary embolectomy of the right and left pulmonary arteries 4. Inferior venacavogram and placement of inferior vena cava filter Anesthesia: General Anesthesiologist: Dr. Cruz FINDINGS: Prior to the procedure, informed consent was obtained after risks and benefits of the procedure were explained to the patient. The patient agreed and wanted to proceed. The patient was brought to special procedures and placed supine on the table. The right groin was prepped was draped in the usual fashion. All elements of maximal sterile barrier techniques were applied. Ultrasound demonstrates patency of the right common femoral vein. Images of the vein were submitted to PACS. Under r eal time ultrasound guidance, a micropuncture needle was used to access th e vein. A 5 Namibian fossa sheath was inserted. A Cobra catheter was advance d over the guidewire into the main pulmonary artery. An Omni Flush cathete r was then exchanged. Pulmonary angiogram shows large saddle pulmonary emb naye. Pulmonary arterial mean pressure was 43 mmHg. The tract was dilated to accept and Inari pulmonary embolectomy sheath was advanced into the left main pulmonary artery. Large clots were removed. The sheath was then repositioned to the right pulmonary artery. Additional large she ath was removed. Post embolectomy pulmonary arterial mean pressure was 33 mmHg. An inferior vena cavogram shows normal sized IVC. An IVC sandrine ter was deployed in the infrarenal segment. MEDICATIONS: Non e COMPLICATIONS: None Blood loss: Less than 50 mL Fluo roscopic time: 913 seconds Radiation dose: 228 mGy IMPRESS ION: Technical successful pulmonary embolectomy of the main, left, and r ight pulmonary arteries. Technically successful placement of inferior ve na cava filter. PAGE 1 Signed Report (CONTINUED) Name: DIEGO GARCÍA [facility] : 1975 Age/S: 44 / F [address] [facility] Unit #: [id number] Loc: [place] [address] P hys: Radha Mccormack MD Acct: V [id number] Dis Date: 20191008 Status: DIS IN PHONE #: [phone] Exam Date: 10/03/2019 1540 F AX #: [phone] Reason: EXAMS: CPT CODE: [id number] SP VENOCAVAGM INF 03129 Fluoro Time: 913 DAP (Gy m2): 83.01 Air Kerma (mGy): 228 <Continued> at 1430 Reported and signed by: Keo Trevino M.D. CC: Radha Mccormack MD Technologist: Dannie North RT(R) Trnscb Date/Time: 10/10/2019 (5239) [email or web address] Orig Print D/T: S: 10/10/2019 (6944) PAGE 2 Signed Report - SP [address] [id number] 14:30:00 Name: DIEGO GARCÍA [facility] : 1975 Age/S: 44 / F [address] [facility] Unit #: [id number] Loc: [place] [address] Phys: Radha Mccormack MD Acct: [id number] Dis Date: 20191008 Status: DIS IN PHONE #: [phone] Exam Date: 10/03/2019 1540 FAX #: [phone] Reason: EXAMS: CPT CODE: [id number] [place] [address] Fluoro Time: 913 DAP (Gy m2): 83.01 Air Kerma (mGy): 228 REASON FOR EXAM:Saddle pulmonary embolus, shortness of breath PROCEDURE: 1. Ultrasound-guided vascular access of the right common femoral vein 2. Pulmonary arteriogram 3. Mechanical pulmonary embolectomy of the right and left pulmonary arteries 4. Inferior venacavogram and placement of inferior vena cava filter Anesthesia: General Anesthesiologist: Dr. Cruz FINDINGS: Prior to the procedure, informed consent was obtained after risks and benefits of the procedure were explained to the patient. The patient agreed and wanted to proceed. The patient was brought to special procedures and placed supine on the table. The right groin was prepped was draped in the usual fashion. All elements of maximal sterile barrier techniques were applied. Ultrasound demonstrates patency of the right common femoral vein. Images of the vein were submitted to PACS. Under r eal time ultrasound guidance, a micropuncture needle was used to access th e vein. A 5 Namibian fossa sheath was inserted. A Cobra catheter was advance d over the guidewire into the main pulmonary artery. An Omni Flush cathete r was then exchanged. Pulmonary angiogram shows large saddle pulmonary emb naye. Pulmonary arterial mean pressure was 43 mmHg. The tract was dilated to accept and Inari pulmonary embolectomy sheath was advanced into the left main pulmonary artery. Large clots were removed. The sheath was then repositioned to the right pulmonary artery. Additional large she ath was removed. Post embolectomy pulmonary arterial mean pressure was 33 mmHg. An inferior vena cavogram shows normal sized IVC. An IVC sandrine ter was deployed in the infrarenal segment. MEDICATIONS: Non e COMPLICATIONS: None Blood loss: Less than 50 mL Fluo roscopic time: 913 seconds Radiation dose: 228 mGy IMPRESS ION: Technical successful pulmonary embolectomy of the main, left, and r ight pulmonary arteries. Technically successful placement of inferior ve na cava filter. PAGE 1 Signed Report (CONTINUED) [facility] 1975 Age/S: 44 / F [address] Unit #: [id number] Loc: [place] [address] P hys: Radha Mccormack MD Acct: V [id number] Dis Date: 20191008 Status: DIS IN PHONE #: [phone] Exam Date: 10/03/2019 1540 F AX #: [phone] Reason: EXAMS: CPT CODE: [id number] [place] [address] [place] [address] Fluoro Time: 913 DAP (Gy m2): 83.01 Air Kerma (mGy): 228 <Continued> at 1430 Reported and signed by: Keo Trevino M.D. CC: Radha Mccormack MD Technologist: Dannie North RT(R) Trnscb Date/Time: 10/10/2019 (1430) [email or web address] Orig Print D/T: S: 10/10/2019 (1433) PAGE 2 Signed Report - INSERT IVC ENDO [id number] 14:30:00 Name: DIEGO GARCÍA [facility] SP : 1975 Age/S: 44 / F [address] Unit #: [id number] Loc: [place] [address] Phys: Radha Mccormack MD Acct: [id number] Dis Date: 20191008 Status: DIS IN PHONE #: [phone] Exam Date: 10/03/2019 1540 FAX #: [phone] Reason: EXAMS: CPT CODE: [id number] INSERT IVC ENDO W/IMAG 66253 Fluoro Time: 913 DAP (Gy m2): 83.01 Air Kerma (mGy): 228 REASON FOR EXAM:Saddle pulmonary embolus, shortness of breath PROCEDURE: 1. Ultrasound-guided vascular access of the right common femoral vein 2. Pulmonary arteriogram 3. Mechanical pulmonary embolectomy of the right and left pulmonary arteries 4. Inferior venacavogram and placement of inferior vena cava filter Anesthesia: General Anesthesiologist: Dr. Cruz FINDINGS: Prior to the procedure, informed consent was obtained after risks and benefits of the procedure were explained to the patient. The patient agreed and wanted to proceed. The patient was brought to special procedures and placed supine on the table. The right groin was prepped was draped in the usual fashion. All elements of maximal sterile barrier techniques were applied. Ultrasound demonstrates patency of the right common femoral vein. Images of the vein were submitted to PACS. Under r eal time ultrasound guidance, a micropuncture needle was used to access th e vein. A 5 Namibian fossa sheath was inserted. A Cobra catheter was advance d over the guidewire into the main pulmonary artery. An Omni Flush cathete r was then exchanged. Pulmonary angiogram shows large saddle pulmonary emb naye. Pulmonary arterial mean pressure was 43 mmHg. The tract was dilated to accept and Inari pulmonary embolectomy sheath was advanced into the left main pulmonary artery. Large clots were removed. The sheath was then repositioned to the right pulmonary artery. Additional large she ath was removed. Post embolectomy pulmonary arterial mean pressure was 33 mmHg. An inferior vena cavogram shows normal sized IVC. An IVC sandrine ter was deployed in the infrarenal segment. MEDICATIONS: Non e COMPLICATIONS: None Blood loss: Less than 50 mL Fluo roscopic time: 913 seconds Radiation dose: 228 mGy IMPRESS ION: Technical successful pulmonary embolectomy of the main, left, and r ight pulmonary arteries. Technically successful placement of inferior ve na cava filter. PAGE 1 Signed Report (CONTINUED) Name: DIEGO GARCÍA [facility] : 1975 Age/S: 44 / F [address] Unit #: [id number] Loc: [place] [address] P hys: Radha Mccormack MD Acct: V [id number] Dis Date: 20191008 Status: DIS IN PHONE #: [phone] Exam Date: 10/03/2019 1540 F AX #: [phone] Reason: EXAMS: CPT CODE: [id number] INSERT IVC ENDO W/IMAG 93570 Fluoro Time: 913 DAP (Gy m2): 83.01 Air Kerma (mGy): 228 <Continued> at 1430 Reported and signed by: Keo Trevino M.D. CC: Radha Mccormack MD Technologist: Dannie North RT(R) Trnscb Date/Time: 10/10/2019 (143) [email or web address] Orig Print D/T: S: 10/10/2019 (1433) PAGE 2 Signed Report GLUBED 2019-10-08 20:15:00* Test Item Value Reference Range Interpretation Comments GLUBED (test code = GLUBED) 224 mg/dL 74-106 H Performed by certified repeater operator at [facility] [id number] 16:58:00* Test Item Value Reference Range Interpretation Comments GLUBED (test code = GLUBED) 152 mg/dL 74-106 H Performed by certified repeater operator at [facility] [id number] 16:58:00* Test Item Value Reference Range Interpretation Comments GLUBED (test code = GLUBED) 102 mg/dL 74-106 N Performed by certified repeater operator at [facility] [id number] 15:27:00* Test Item Value Reference Range Interpretation Comments GLUBED (test code = GLUBED) 88 mg/dL 74-106 N Performed by certified repeater operator at [facility] CBC W/AUTO [id number] 05:15:00* Test Item Value Reference Range Interpretation Comments WHITE BLOOD CELL (test code = WBC) 5.9 K/mm3 4.5-12.5 N RED BLOOD CELL (test code = RBC) 3.78 mill/mm3 3.7-5.2 N HEMOGLOBIN (test code = HGB) 8.3 gram/dL 11.5-15.5 L HEMATOCRIT (test code = HCT) 28.4 % 36.0-46.0 L MEAN CELL VOLUME (test code = MCV) 75.1 fL 80-98 L MEAN CELL HGB (test code = MCH) 22.0 picogram 27.0-33.0 L MEAN CELL HGB CONCETRATION (test code = MCHC) 29.2 gram/dL 33.0-36. 0 L RED CELL DISTRIBUTION WIDTH (test code = RDW) 22.7 % 11.6-16. 2 H RED CELL DISTRIBUTION WIDTH SD (test code = RDW-SD) 57.3 fL 37 .0-51.0 H PLATELET COUNT (test code = PLT) 439 K/mm3 150-450 N MEAN PLATELET VOLUME (test code = MPV) 8.7 fL 6.7-11.0 N NEUTROPHIL % (test code = NT%) 55.2 % 39.0-69.0 N IMMATURE GRANULOCYTE % (test code = IG%) 0.5 % 0.0-5.0 N LYMPHOCYTE % (test code = LY%) 32.1 % 25.0-55.0 N MONOCYTE % (test code = MO%) 10.0 % 0.0-10.0 N EOSINOPHIL % (test code = EO%) 1.7 % 0.0-5.0 N BASOPHIL % (test code = BA%) 0.5 % 0.0-1.0 N NUCLEATED RBC % (test code = NRBC%) 0.0 % 0-0 N NEUTROPHIL # (test code = NT#) 3.24 K/mm3 1.8-7.7 N IMMATURE GRANULOCYTE # (test code = IG#) 0.03 x10 3/uL 0-0.03 N LYMPHOCYTE # (test code = LY#) 1.89 K/mm3 1.0-5.0 N MONOCYTE # (test code = MO#) 0.59 K/mm3 0-0.8 N EOSINOPHIL # (test code = EO#) 0.10 K/mm3 0.0-0.5 N BASOPHIL # (test code = BA#) 0.03 K/mm3 0.0-0.2 N NUCLEATED RBC # (test code = NRBC#) 0.00 K/mm3 0.0-0.1 N MANUAL DIFF REQUIRED (test code = MDIFF) NO, ONLY SCAN NEEDED DIFFERENTIAL [id number] 05:15:00* Test Item Value Reference Range Interpretation Comments STAIN ACCEPTABILITY (test code = STN ACCEPTABLE) STAIN ACCEPTABLE POLYCHROMASIA (test code = POLC) 1+ HYPOCHROMIA (test code = HYPO) 2+ ANISOCYTOSIS (test code = ANISO) 1+ MICROCYTOSIS (test code = MICR) 1+ PLATELET ESTIMATE (test code = PLTEST) INCREASED PLATELET MORPHOLOGY (test code = PLTMORPH) NORMAL BASIC METABOLIC [id number] 05:09:00* Test Item Value Reference Range Interpretation Comments SODIUM (test code = NA) 142 mmol/L 136-145 N POTASSIUM (test code = K) 3.9 mmol/L 3.5-5.1 N CHLORIDE (test code = CL) 106.0 mmol/L 98-107 N CARBON DIOXIDE (test code = CO2) 29.0 mmol/L 21-32 N ANION GAP (test code = GAP) 10.9 10-20 N GLUCOSE (test code = GLU) 125 mg/dL 74-106 H BLOOD UREA NITROGEN (test code = BUN) 9 mg/dL 7-18 N GLOMERULAR FILTRATION RATE (test code = GFR) > 60 mL/min >=60 Estimated GFR by using Modified MDRD formula.Chronic kidney disease is defined as either kidney damageor GFR <60 mL/min/1.73 m2 for >3 months. CREATININE (test code = CREAT) 0.50 mg/dL 0.55-1.02 L Note change in reference range due to change in reagent. BUN/CREATININE RATIO (test code = BUN/CREA) 18.0 10-20 N CALCIUM (test code = CA) 8.8 mg/dL 8.5-10.1 N [id number] 05:09:00* Test Item Value Reference Range Interpretation Comments MAGNESIUM (test code = MAG) 1.7 mg/dL 1.8-2.4 L BASIC METABOLIC [id number] 05:04:00* Test Item Value Reference Range Interpretation Comments SODIUM (test code = NA) 142 mmol/L 136-145 N POTASSIUM (test code = K) 3.9 mmol/L 3.5-5.1 N CHLORIDE (test code = CL) 106.0 mmol/L 98-107 N CARBON DIOXIDE (test code = CO2) mmol/L 21-32 ANION GAP (test code = GAP) 10-20 GLUCOSE (test code = GLU) mg/dL 74-106 BLOOD UREA NITROGEN (test code = BUN) mg/dL 7-18 GLOMERULAR FILTRATION RATE (test code = GFR) mL/min >=60 CREATININE (test code = CREAT) mg/dL 0.55-1.02 BUN/CREATININE RATIO (test code = BUN/CREA) 10-20 CALCIUM (test code = CA) mg/dL 8.5-10.1 [id number] 05:04:00* Test Item Value Reference Range Interpretation Comments MAGNESIUM (test code = MAG) mg/dL 1.8-2.4 CBC W/AUTO [id number] 04:39:00* Test Item Value Reference Range Interpretation Comments WHITE BLOOD CELL (test code = WBC) 5.9 K/mm3 4.5-12.5 N RED BLOOD CELL (test code = RBC) 3.78 mill/mm3 3.7-5.2 N HEMOGLOBIN (test code = HGB) 8.3 gram/dL 11.5-15.5 L HEMATOCRIT (test code = HCT) 28.4 % 36.0-46.0 L MEAN CELL VOLUME (test code = MCV) 75.1 fL 80-98 L MEAN CELL HGB (test code = MCH) 22.0 picogram 27.0-33.0 L MEAN CELL HGB CONCETRATION (test code = MCHC) 29.2 gram/dL 33.0-36. 0 L RED CELL DISTRIBUTION WIDTH (test code = RDW) 22.7 % 11.6-16. 2 H RED CELL DISTRIBUTION WIDTH SD (test code = RDW-SD) 57.3 fL 37 .0-51.0 H PLATELET COUNT (test code = PLT) 439 K/mm3 150-450 N MEAN PLATELET VOLUME (test code = MPV) 8.7 fL 6.7-11.0 N NEUTROPHIL % (test code = NT%) 55.2 % 39.0-69.0 N IMMATURE GRANULOCYTE % (test code = IG%) 0.5 % 0.0-5.0 N LYMPHOCYTE % (test code = LY%) 32.1 % 25.0-55.0 N MONOCYTE % (test code = MO%) 10.0 % 0.0-10.0 N EOSINOPHIL % (test code = EO%) 1.7 % 0.0-5.0 N BASOPHIL % (test code = BA%) 0.5 % 0.0-1.0 N NUCLEATED RBC % (test code = NRBC%) 0.0 % 0-0 N NEUTROPHIL # (test code = NT#) 3.24 K/mm3 1.8-7.7 N IMMATURE GRANULOCYTE # (test code = IG#) 0.03 x10 3/uL 0-0.03 N LYMPHOCYTE # (test code = LY#) 1.89 K/mm3 1.0-5.0 N MONOCYTE # (test code = MO#) 0.59 K/mm3 0-0.8 N EOSINOPHIL # (test code = EO#) 0.10 K/mm3 0.0-0.5 N BASOPHIL # (test code = BA#) 0.03 K/mm3 0.0-0.2 N NUCLEATED RBC # (test code = NRBC#) 0.00 K/mm3 0.0-0.1 N MANUAL DIFF REQUIRED (test code = MDIFF) NO, ONLY SCAN NEEDED DIFFERENTIAL [id number] 04:39:00* Test Item Value Reference Range Interpretation Comments STAIN ACCEPTABILITY (test code = STN ACCEPTABLE) CABOT RINGS (test code = CAB) MORPHOLOGY COMMENT (test code = MOC) PLATELET ESTIMATE (test code = PLTEST) PLATELET MORPHOLOGY (test code = PLTMORPH) CBC W/AUTO [id number] 04:39:00* Test Item Value Reference Range Interpretation Comments WHITE BLOOD CELL (test code = WBC) 5.9 K/mm3 4.5-12.5 N RED BLOOD CELL (test code = RBC) 3.78 mill/mm3 3.7-5.2 N HEMOGLOBIN (test code = HGB) 8.3 gram/dL 11.5-15.5 L HEMATOCRIT (test code = HCT) 28.4 % 36.0-46.0 L MEAN CELL VOLUME (test code = MCV) 75.1 fL 80-98 L MEAN CELL HGB (test code = MCH) 22.0 picogram 27.0-33.0 L MEAN CELL HGB CONCETRATION (test code = MCHC) 29.2 gram/dL 33.0-36. 0 L RED CELL DISTRIBUTION WIDTH (test code = RDW) 22.7 % 11.6-16. 2 H RED CELL DISTRIBUTION WIDTH SD (test code = RDW-SD) 57.3 fL 37 .0-51.0 H PLATELET COUNT (test code = PLT) 439 K/mm3 150-450 N MEAN PLATELET VOLUME (test code = MPV) 8.7 fL 6.7-11.0 N NEUTROPHIL % (test code = NT%) 55.2 % 39.0-69.0 N IMMATURE GRANULOCYTE % (test code = IG%) 0.5 % 0.0-5.0 N LYMPHOCYTE % (test code = LY%) 32.1 % 25.0-55.0 N MONOCYTE % (test code = MO%) 10.0 % 0.0-10.0 N EOSINOPHIL % (test code = EO%) 1.7 % 0.0-5.0 N BASOPHIL % (test code = BA%) 0.5 % 0.0-1.0 N NUCLEATED RBC % (test code = NRBC%) 0.0 % 0-0 N NEUTROPHIL # (test code = NT#) 3.24 K/mm3 1.8-7.7 N IMMATURE GRANULOCYTE # (test code = IG#) 0.03 x10 3/uL 0-0.03 N LYMPHOCYTE # (test code = LY#) 1.89 K/mm3 1.0-5.0 N MONOCYTE # (test code = MO#) 0.59 K/mm3 0-0.8 N EOSINOPHIL # (test code = EO#) 0.10 K/mm3 0.0-0.5 N BASOPHIL # (test code = BA#) 0.03 K/mm3 0.0-0.2 N NUCLEATED RBC # (test code = NRBC#) 0.00 K/mm3 0.0-0.1 N MANUAL DIFF REQUIRED (test code = MDIFF) NO, ONLY SCAN NEEDED DIFFERENTIAL [id number] 04:39:00* Test Item Value Reference Range Interpretation Comments STAIN ACCEPTABILITY (test code = STN ACCEPTABLE) CABOT RINGS (test code = CAB) MORPHOLOGY COMMENT (test code = MOC) PLATELET ESTIMATE (test code = PLTEST) PLATELET MORPHOLOGY (test code = PLTMORPH) CBC W/AUTO [id number] 04:39:00* Test Item Value Reference Range Interpretation Comments WHITE BLOOD CELL (test code = WBC) 5.9 K/mm3 4.5-12.5 N RED BLOOD CELL (test code = RBC) 3.78 mill/mm3 3.7-5.2 N HEMOGLOBIN (test code = HGB) 8.3 gram/dL 11.5-15.5 L HEMATOCRIT (test code = HCT) 28.4 % 36.0-46.0 L MEAN CELL VOLUME (test code = MCV) 75.1 fL 80-98 L MEAN CELL HGB (test code = MCH) 22.0 picogram 27.0-33.0 L MEAN CELL HGB CONCETRATION (test code = MCHC) 29.2 gram/dL 33.0-36. 0 L RED CELL DISTRIBUTION WIDTH (test code = RDW) 22.7 % 11.6-16. 2 H RED CELL DISTRIBUTION WIDTH SD (test code = RDW-SD) 57.3 fL 37 .0-51.0 H PLATELET COUNT (test code = PLT) 439 K/mm3 150-450 N MEAN PLATELET VOLUME (test code = MPV) 8.7 fL 6.7-11.0 N NEUTROPHIL % (test code = NT%) 55.2 % 39.0-69.0 N IMMATURE GRANULOCYTE % (test code = IG%) 0.5 % 0.0-5.0 N LYMPHOCYTE % (test code = LY%) 32.1 % 25.0-55.0 N MONOCYTE % (test code = MO%) 10.0 % 0.0-10.0 N EOSINOPHIL % (test code = EO%) 1.7 % 0.0-5.0 N BASOPHIL % (test code = BA%) 0.5 % 0.0-1.0 N NUCLEATED RBC % (test code = NRBC%) 0.0 % 0-0 N NEUTROPHIL # (test code = NT#) 3.24 K/mm3 1.8-7.7 N IMMATURE GRANULOCYTE # (test code = IG#) 0.03 x10 3/uL 0-0.03 N LYMPHOCYTE # (test code = LY#) 1.89 K/mm3 1.0-5.0 N MONOCYTE # (test code = MO#) 0.59 K/mm3 0-0.8 N EOSINOPHIL # (test code = EO#) 0.10 K/mm3 0.0-0.5 N BASOPHIL # (test code = BA#) 0.03 K/mm3 0.0-0.2 N NUCLEATED RBC # (test code = NRBC#) 0.00 K/mm3 0.0-0.1 N MANUAL DIFF REQUIRED (test code = MDIFF) NO, ONLY SCAN NEEDED DIFFERENTIAL [id number] 04:39:00* Test Item Value Reference Range Interpretation Comments STAIN ACCEPTABILITY (test code = STN ACCEPTABLE) MORPHOLOGY COMMENT (test code = MOC) PLATELET ESTIMATE (test code = PLTEST) PLATELET MORPHOLOGY (test code = PLTMORPH) CBC W/AUTO [id number] 04:39:00* Test Item Value Reference Range Interpretation Comments WHITE BLOOD CELL (test code = WBC) 5.9 K/mm3 4.5-12.5 N RED BLOOD CELL (test code = RBC) 3.78 mill/mm3 3.7-5.2 N HEMOGLOBIN (test code = HGB) 8.3 gram/dL 11.5-15.5 L HEMATOCRIT (test code = HCT) 28.4 % 36.0-46.0 L MEAN CELL VOLUME (test code = MCV) 75.1 fL 80-98 L MEAN CELL HGB (test code = MCH) 22.0 picogram 27.0-33.0 L MEAN CELL HGB CONCETRATION (test code = MCHC) 29.2 gram/dL 33.0-36. 0 L RED CELL DISTRIBUTION WIDTH (test code = RDW) 22.7 % 11.6-16. 2 H RED CELL DISTRIBUTION WIDTH SD (test code = RDW-SD) 57.3 fL 37 .0-51.0 H PLATELET COUNT (test code = PLT) 439 K/mm3 150-450 N MEAN PLATELET VOLUME (test code = MPV) 8.7 fL 6.7-11.0 N NEUTROPHIL % (test code = NT%) 55.2 % 39.0-69.0 N IMMATURE GRANULOCYTE % (test code = IG%) 0.5 % 0.0-5.0 N LYMPHOCYTE % (test code = LY%) 32.1 % 25.0-55.0 N MONOCYTE % (test code = MO%) 10.0 % 0.0-10.0 N EOSINOPHIL % (test code = EO%) 1.7 % 0.0-5.0 N BASOPHIL % (test code = BA%) 0.5 % 0.0-1.0 N NUCLEATED RBC % (test code = NRBC%) 0.0 % 0-0 N NEUTROPHIL # (test code = NT#) 3.24 K/mm3 1.8-7.7 N IMMATURE GRANULOCYTE # (test code = IG#) 0.03 x10 3/uL 0-0.03 N LYMPHOCYTE # (test code = LY#) 1.89 K/mm3 1.0-5.0 N MONOCYTE # (test code = MO#) 0.59 K/mm3 0-0.8 N EOSINOPHIL # (test code = EO#) 0.10 K/mm3 0.0-0.5 N BASOPHIL # (test code = BA#) 0.03 K/mm3 0.0-0.2 N NUCLEATED RBC # (test code = NRBC#) 0.00 K/mm3 0.0-0.1 N MANUAL DIFF REQUIRED (test code = MDIFF) NO, ONLY SCAN NEEDED DIFFERENTIAL [id number] 04:39:00* Test Item Value Reference Range Interpretation Comments STAIN ACCEPTABILITY (test code = STN ACCEPTABLE) CABOT RINGS (test code = CAB) MORPHOLOGY COMMENT (test code = MOC) PLATELET ESTIMATE (test code = PLTEST) PLATELET MORPHOLOGY (test code = PLTMORPH) [id number] 20:15:00* Test Item Value Reference Range Interpretation Comments GLUBED (test code = GLUBED) 217 mg/dL 74-106 H Performed by certified repeater operator at [facility] [id number] 20:15:00* Test Item Value Reference Range Interpretation Comments GLUBED (test code = GLUBED) 154 mg/dL 74-106 H Performed by certified repeater operator at [facility] [id number] 20:15:00* Test Item Value Reference Range Interpretation Comments GLUBED (test code = GLUBED) 131 mg/dL 74-106 H Performed by certified repeater operator at [facility] [id number] 20:15:00* Test Item Value Reference Range Interpretation Comments GLUBED (test code = GLUBED) 77 mg/dL 74-106 N Performed by certified repeater operator at [facility] [id number] 19:22:00* Test Item Value Reference Range Interpretation Comments GLUBED (test code = GLUBED) 159 mg/dL 74-106 H Performed by certified repeater operator at [facility] [id number] 11:20:00* Test Item Value Reference Range Interpretation Comments FERRITIN (test code = JAVI) 17 ng/mL 8-388 N CBC W/AUTO [id number] 03:45:00* Test Item Value Reference Range Interpretation Comments WHITE BLOOD CELL (test code = WBC) 5.0 K/mm3 4.5-12.5 N RED BLOOD CELL (test code = RBC) 3.86 mill/mm3 3.7-5.2 N HEMOGLOBIN (test code = HGB) 8.5 gram/dL 11.5-15.5 L HEMATOCRIT (test code = HCT) 27.5 % 36.0-46.0 L MEAN CELL VOLUME (test code = MCV) 71.2 fL 80-98 L MEAN CELL HGB (test code = MCH) 22.0 picogram 27.0-33.0 L MEAN CELL HGB CONCETRATION (test code = MCHC) 30.9 gram/dL 33.0-36. 0 L RED CELL DISTRIBUTION WIDTH (test code = RDW) 21.8 % 11.6-16. 2 H RED CELL DISTRIBUTION WIDTH SD (test code = RDW-SD) 53.2 fL 37 .0-51.0 H PLATELET COUNT (test code = PLT) 427 K/mm3 150-450 N MEAN PLATELET VOLUME (test code = MPV) 8.8 fL 6.7-11.0 N NEUTROPHIL % (test code = NT%) 48.5 % 39.0-69.0 N IMMATURE GRANULOCYTE % (test code = IG%) 0.2 % 0.0-5.0 N LYMPHOCYTE % (test code = LY%) 40.4 % 25.0-55.0 N MONOCYTE % (test code = MO%) 9.1 % 0.0-10.0 N EOSINOPHIL % (test code = EO%) 1.6 % 0.0-5.0 N BASOPHIL % (test code = BA%) 0.2 % 0.0-1.0 N NUCLEATED RBC % (test code = NRBC%) 0.0 % 0-0 N NEUTROPHIL # (test code = NT#) 2.41 K/mm3 1.8-7.7 N IMMATURE GRANULOCYTE # (test code = IG#) 0.01 x10 3/uL 0-0.03 N LYMPHOCYTE # (test code = LY#) 2.01 K/mm3 1.0-5.0 N MONOCYTE # (test code = MO#) 0.45 K/mm3 0-0.8 N EOSINOPHIL # (test code = EO#) 0.08 K/mm3 0.0-0.5 N BASOPHIL # (test code = BA#) 0.01 K/mm3 0.0-0.2 N NUCLEATED RBC # (test code = NRBC#) 0.00 K/mm3 0.0-0.1 N MANUAL DIFF REQUIRED (test code = MDIFF) NO, ONLY SCAN NEEDED DIFFERENTIAL [id number] 03:45:00* Test Item Value Reference Range Interpretation Comments STAIN ACCEPTABILITY (test code = STN ACCEPTABLE) STAIN ACCEPTABLE HYPOCHROMIA (test code = HYPO) 1+ ANISOCYTOSIS (test code = ANISO) 1+ MICROCYTOSIS (test code = MICR) 1+ SMUDGE CELLS (test code = SMUDG) 1+ PLATELET ESTIMATE (test code = PLTEST) ADEQUATE PLATELET MORPHOLOGY (test code = PLTMORPH) NORMAL BASIC METABOLIC [id number] 01:39:00* Test Item Value Reference Range Interpretation Comments SODIUM (test code = NA) 142 mmol/L 136-145 N POTASSIUM (test code = K) 3.4 mmol/L 3.5-5.1 L CHLORIDE (test code = CL) 108.0 mmol/L 98-107 H CARBON DIOXIDE (test code = CO2) 27.0 mmol/L 21-32 N ANION GAP (test code = GAP) 10.4 10-20 N GLUCOSE (test code = GLU) 71 mg/dL 74-106 L BLOOD UREA NITROGEN (test code = BUN) 10 mg/dL 7-18 N GLOMERULAR FILTRATION RATE (test code = GFR) > 60 mL/min >=60 Estimated GFR by using Modified MDRD formula.Chronic kidney disease is defined as either kidney damageor GFR <60 mL/min/1.73 m2 for >3 months. CREATININE (test code = CREAT) 0.40 mg/dL 0.55-1.02 L Note change in reference range due to change in reagent. BUN/CREATININE RATIO (test code = BUN/CREA) 25.0 10-20 H CALCIUM (test code = CA) 8.7 mg/dL 8.5-10.1 N [id number] 01:39:00* Test Item Value Reference Range Interpretation Comments PHOSPHORUS (test code = PHOS) 3.6 mg/dL 2.5-4.9 N [id number] 01:39:00* Test Item Value Reference Range Interpretation Comments MAGNESIUM (test code = MAG) 1.7 mg/dL 1.8-2.4 L BASIC METABOLIC [id number] 01:31:00* Test Item Value Reference Range Interpretation Comments SODIUM (test code = NA) 142 mmol/L 136-145 N POTASSIUM (test code = K) 3.4 mmol/L 3.5-5.1 L CHLORIDE (test code = CL) 108.0 mmol/L 98-107 H CARBON DIOXIDE (test code = CO2) mmol/L 21-32 ANION GAP (test code = GAP) 10-20 GLUCOSE (test code = GLU) mg/dL 74-106 BLOOD UREA NITROGEN (test code = BUN) mg/dL 7-18 GLOMERULAR FILTRATION RATE (test code = GFR) mL/min >=60 CREATININE (test code = CREAT) mg/dL 0.55-1.02 BUN/CREATININE RATIO (test code = BUN/CREA) 10-20 CALCIUM (test code = CA) mg/dL 8.5-10.1 [id number] 01:31:00* Test Item Value Reference Range Interpretation Comments PHOSPHORUS (test code = PHOS) mg/dL 2.5-4.9 [id number] 01:31:00* Test Item Value Reference Range Interpretation Comments MAGNESIUM (test code = MAG) mg/dL 1.8-2.4 CBC W/AUTO [id number] 01:31:00* Test Item Value Reference Range Interpretation Comments WHITE BLOOD CELL (test code = WBC) 5.0 K/mm3 4.5-12.5 N RED BLOOD CELL (test code = RBC) 3.86 mill/mm3 3.7-5.2 N HEMOGLOBIN (test code = HGB) 8.5 gram/dL 11.5-15.5 L HEMATOCRIT (test code = HCT) 27.5 % 36.0-46.0 L MEAN CELL VOLUME (test code = MCV) 71.2 fL 80-98 L MEAN CELL HGB (test code = MCH) 22.0 picogram 27.0-33.0 L MEAN CELL HGB CONCETRATION (test code = MCHC) 30.9 gram/dL 33.0-36. 0 L RED CELL DISTRIBUTION WIDTH (test code = RDW) 21.8 % 11.6-16. 2 H RED CELL DISTRIBUTION WIDTH SD (test code = RDW-SD) 53.2 fL 37 .0-51.0 H PLATELET COUNT (test code = PLT) 427 K/mm3 150-450 N MEAN PLATELET VOLUME (test code = MPV) 8.8 fL 6.7-11.0 N NEUTROPHIL % (test code = NT%) 48.5 % 39.0-69.0 N IMMATURE GRANULOCYTE % (test code = IG%) 0.2 % 0.0-5.0 N LYMPHOCYTE % (test code = LY%) 40.4 % 25.0-55.0 N MONOCYTE % (test code = MO%) 9.1 % 0.0-10.0 N EOSINOPHIL % (test code = EO%) 1.6 % 0.0-5.0 N BASOPHIL % (test code = BA%) 0.2 % 0.0-1.0 N NUCLEATED RBC % (test code = NRBC%) 0.0 % 0-0 N NEUTROPHIL # (test code = NT#) 2.41 K/mm3 1.8-7.7 N IMMATURE GRANULOCYTE # (test code = IG#) 0.01 x10 3/uL 0-0.03 N LYMPHOCYTE # (test code = LY#) 2.01 K/mm3 1.0-5.0 N MONOCYTE # (test code = MO#) 0.45 K/mm3 0-0.8 N EOSINOPHIL # (test code = EO#) 0.08 K/mm3 0.0-0.5 N BASOPHIL # (test code = BA#) 0.01 K/mm3 0.0-0.2 N NUCLEATED RBC # (test code = NRBC#) 0.00 K/mm3 0.0-0.1 N MANUAL DIFF REQUIRED (test code = MDIFF) NO, ONLY SCAN NEEDED DIFFERENTIAL [id number] 01:31:00* Test Item Value Reference Range Interpretation Comments STAIN ACCEPTABILITY (test code = STN ACCEPTABLE) CABOT RINGS (test code = CAB) MORPHOLOGY COMMENT (test code = MOC) PLATELET ESTIMATE (test code = PLTEST) PLATELET MORPHOLOGY (test code = PLTMORPH) CBC W/AUTO [id number] 01:31:00* Test Item Value Reference Range Interpretation Comments WHITE BLOOD CELL (test code = WBC) 5.0 K/mm3 4.5-12.5 N RED BLOOD CELL (test code = RBC) 3.86 mill/mm3 3.7-5.2 N HEMOGLOBIN (test code = HGB) 8.5 gram/dL 11.5-15.5 L HEMATOCRIT (test code = HCT) 27.5 % 36.0-46.0 L MEAN CELL VOLUME (test code = MCV) 71.2 fL 80-98 L MEAN CELL HGB (test code = MCH) 22.0 picogram 27.0-33.0 L MEAN CELL HGB CONCETRATION (test code = MCHC) 30.9 gram/dL 33.0-36. 0 L RED CELL DISTRIBUTION WIDTH (test code = RDW) 21.8 % 11.6-16. 2 H RED CELL DISTRIBUTION WIDTH SD (test code = RDW-SD) 53.2 fL 37 .0-51.0 H PLATELET COUNT (test code = PLT) 427 K/mm3 150-450 N MEAN PLATELET VOLUME (test code = MPV) 8.8 fL 6.7-11.0 N NEUTROPHIL % (test code = NT%) 48.5 % 39.0-69.0 N IMMATURE GRANULOCYTE % (test code = IG%) 0.2 % 0.0-5.0 N LYMPHOCYTE % (test code = LY%) 40.4 % 25.0-55.0 N MONOCYTE % (test code = MO%) 9.1 % 0.0-10.0 N EOSINOPHIL % (test code = EO%) 1.6 % 0.0-5.0 N BASOPHIL % (test code = BA%) 0.2 % 0.0-1.0 N NUCLEATED RBC % (test code = NRBC%) 0.0 % 0-0 N NEUTROPHIL # (test code = NT#) 2.41 K/mm3 1.8-7.7 N IMMATURE GRANULOCYTE # (test code = IG#) 0.01 x10 3/uL 0-0.03 N LYMPHOCYTE # (test code = LY#) 2.01 K/mm3 1.0-5.0 N MONOCYTE # (test code = MO#) 0.45 K/mm3 0-0.8 N EOSINOPHIL # (test code = EO#) 0.08 K/mm3 0.0-0.5 N BASOPHIL # (test code = BA#) 0.01 K/mm3 0.0-0.2 N NUCLEATED RBC # (test code = NRBC#) 0.00 K/mm3 0.0-0.1 N MANUAL DIFF REQUIRED (test code = MDIFF) NO, ONLY SCAN NEEDED DIFFERENTIAL [id number] 01:31:00* Test Item Value Reference Range Interpretation Comments STAIN ACCEPTABILITY (test code = STN ACCEPTABLE) MORPHOLOGY COMMENT (test code = MOC) PLATELET ESTIMATE (test code = PLTEST) PLATELET MORPHOLOGY (test code = PLTMORPH) CBC W/AUTO [id number] 01:31:00* Test Item Value Reference Range Interpretation Comments WHITE BLOOD CELL (test code = WBC) 5.0 K/mm3 4.5-12.5 N RED BLOOD CELL (test code = RBC) 3.86 mill/mm3 3.7-5.2 N HEMOGLOBIN (test code = HGB) 8.5 gram/dL 11.5-15.5 L HEMATOCRIT (test code = HCT) 27.5 % 36.0-46.0 L MEAN CELL VOLUME (test code = MCV) 71.2 fL 80-98 L MEAN CELL HGB (test code = MCH) 22.0 picogram 27.0-33.0 L MEAN CELL HGB CONCETRATION (test code = MCHC) 30.9 gram/dL 33.0-36. 0 L RED CELL DISTRIBUTION WIDTH (test code = RDW) 21.8 % 11.6-16. 2 H RED CELL DISTRIBUTION WIDTH SD (test code = RDW-SD) 53.2 fL 37 .0-51.0 H PLATELET COUNT (test code = PLT) 427 K/mm3 150-450 N MEAN PLATELET VOLUME (test code = MPV) 8.8 fL 6.7-11.0 N NEUTROPHIL % (test code = NT%) 48.5 % 39.0-69.0 N IMMATURE GRANULOCYTE % (test code = IG%) 0.2 % 0.0-5.0 N LYMPHOCYTE % (test code = LY%) 40.4 % 25.0-55.0 N MONOCYTE % (test code = MO%) 9.1 % 0.0-10.0 N EOSINOPHIL % (test code = EO%) 1.6 % 0.0-5.0 N BASOPHIL % (test code = BA%) 0.2 % 0.0-1.0 N NUCLEATED RBC % (test code = NRBC%) 0.0 % 0-0 N NEUTROPHIL # (test code = NT#) 2.41 K/mm3 1.8-7.7 N IMMATURE GRANULOCYTE # (test code = IG#) 0.01 x10 3/uL 0-0.03 N LYMPHOCYTE # (test code = LY#) 2.01 K/mm3 1.0-5.0 N MONOCYTE # (test code = MO#) 0.45 K/mm3 0-0.8 N EOSINOPHIL # (test code = EO#) 0.08 K/mm3 0.0-0.5 N BASOPHIL # (test code = BA#) 0.01 K/mm3 0.0-0.2 N NUCLEATED RBC # (test code = NRBC#) 0.00 K/mm3 0.0-0.1 N MANUAL DIFF REQUIRED (test code = MDIFF) NO, ONLY SCAN NEEDED DIFFERENTIAL [id number] 01:31:00* Test Item Value Reference Range Interpretation Comments STAIN ACCEPTABILITY (test code = STN ACCEPTABLE) MORPHOLOGY COMMENT (test code = MOC) PLATELET ESTIMATE (test code = PLTEST) PLATELET MORPHOLOGY (test code = PLTMORPH) CBC W/AUTO [id number] 01:31:00* Test Item Value Reference Range Interpretation Comments WHITE BLOOD CELL (test code = WBC) 5.0 K/mm3 4.5-12.5 N RED BLOOD CELL (test code = RBC) 3.86 mill/mm3 3.7-5.2 N HEMOGLOBIN (test code = HGB) 8.5 gram/dL 11.5-15.5 L HEMATOCRIT (test code = HCT) 27.5 % 36.0-46.0 L MEAN CELL VOLUME (test code = MCV) 71.2 fL 80-98 L MEAN CELL HGB (test code = MCH) 22.0 picogram 27.0-33.0 L MEAN CELL HGB CONCETRATION (test code = MCHC) 30.9 gram/dL 33.0-36. 0 L RED CELL DISTRIBUTION WIDTH (test code = RDW) 21.8 % 11.6-16. 2 H RED CELL DISTRIBUTION WIDTH SD (test code = RDW-SD) 53.2 fL 37 .0-51.0 H PLATELET COUNT (test code = PLT) 427 K/mm3 150-450 N MEAN PLATELET VOLUME (test code = MPV) 8.8 fL 6.7-11.0 N NEUTROPHIL % (test code = NT%) 48.5 % 39.0-69.0 N IMMATURE GRANULOCYTE % (test code = IG%) 0.2 % 0.0-5.0 N LYMPHOCYTE % (test code = LY%) 40.4 % 25.0-55.0 N MONOCYTE % (test code = MO%) 9.1 % 0.0-10.0 N EOSINOPHIL % (test code = EO%) 1.6 % 0.0-5.0 N BASOPHIL % (test code = BA%) 0.2 % 0.0-1.0 N NUCLEATED RBC % (test code = NRBC%) 0.0 % 0-0 N NEUTROPHIL # (test code = NT#) 2.41 K/mm3 1.8-7.7 N IMMATURE GRANULOCYTE # (test code = IG#) 0.01 x10 3/uL 0-0.03 N LYMPHOCYTE # (test code = LY#) 2.01 K/mm3 1.0-5.0 N MONOCYTE # (test code = MO#) 0.45 K/mm3 0-0.8 N EOSINOPHIL # (test code = EO#) 0.08 K/mm3 0.0-0.5 N BASOPHIL # (test code = BA#) 0.01 K/mm3 0.0-0.2 N NUCLEATED RBC # (test code = NRBC#) 0.00 K/mm3 0.0-0.1 N MANUAL DIFF REQUIRED (test code = MDIFF) NO, ONLY SCAN NEEDED DIFFERENTIAL [id number] 01:31:00* Test Item Value Reference Range Interpretation Comments STAIN ACCEPTABILITY (test code = STN ACCEPTABLE) CABOT RINGS (test code = CAB) MORPHOLOGY COMMENT (test code = MOC) PLATELET ESTIMATE (test code = PLTEST) PLATELET MORPHOLOGY (test code = PLTMORPH) [id number] 16:10:00* Test Item Value Reference Range Interpretation Comments GLUBED (test code = GLUBED) 171 mg/dL 74-106 H Performed by certified repeater operator at [facility] [id number] 12:36:00* Test Item Value Reference Range Interpretation Comments GLUBED (test code = GLUBED) 111 mg/dL 74-106 H Performed by certified repeater operator at [facility] - XR CHEST 1 [id number] 09:09:00 FAX: Efraín Fonseca [phone] [place]: [address]: ADM FAX: Radha Villegas MD [phone] Name: DIEGO GARCÍA [facility] : 1975 Age/S: 44/F [address] [facility] Unit #: [id number] Loc: V.5012 [place] [address] Phys: Efraín Fonseca Acct: [id number] Dis Date: Status: ADM IN PHONE #: [phone] Exam Date: 10/06/2019834 FAX #: [phone] Reason: updated pulm view EXAMS: CPT CODE: [id number] XR CHEST 1 V [id number] REASON FOR EXAM: updated pulm view Exam Order Date: 10/06/2019 4:00 AM Ordering M.Sana: INDY Enamorado PROCEDURE: - XR CHEST 1 V COMPARISON: Frontal chest x-ray generated 2019 FINDINGS: The lungs are clear. There is no pleural effusion or pneumothorax. Pulmonary vascularity is within normal limits. Cardiomediastinal silhouette is normal in size for technique. The mediastinal contours are within normal limits. There are degenerative changes in the spine. The visualized upper abdomen is within normal limits. IMPRESSION: No acute cardiopulmonary process. Location: [facility] Signed by Peewee Felder MD on 10/06/2019 at 0909 Rep orted and signed by: Peewee Felder MD CC: Efraín Fonseca; Shira Mccormack MD Technologist: DONITA NGUYEN JR Trnscrd Date/Time/By: 10/06/2019 (0909) : By: [id number] Orig Print D/T: S: 10/06/2019 (7512) PAGE 1 Signed Report [id number] 08:39:00 * Test Item Value Reference Range Interpretation Comments GLUBED (test code = GLUBED) 86 mg/dL 74-106 N Performed by certified repeater operator at [facility] BASIC METABOLIC [id number] 06:26:00* Test Item Value Reference Range Interpretation Comments SODIUM (test code = NA) 142 mmol/L 136-145 N POTASSIUM (test code = K) 3.3 mmol/L 3.5-5.1 L CHLORIDE (test code = CL) 110.0 mmol/L 98-107 H CARBON DIOXIDE (test code = CO2) 26.0 mmol/L 21-32 N ANION GAP (test code = GAP) 9.3 10-20 L GLUCOSE (test code = GLU) 85 mg/dL 74-106 N BLOOD UREA NITROGEN (test code = BUN) 13 mg/dL 7-18 N GLOMERULAR FILTRATION RATE (test code = GFR) > 60 mL/min >=60 Estimated GFR by using Modified MDRD formula.Chronic kidney disease is defined as either kidney damageor GFR <60 mL/min/1.73 m2 for >3 months. CREATININE (test code = CREAT) 0.40 mg/dL 0.55-1.02 L Note change in reference range due to change in reagent. BUN/CREATININE RATIO (test code = BUN/CREA) 32.5 10-20 H CALCIUM (test code = CA) 8.3 mg/dL 8.5-10.1 L HEPATIC FUNCTION [id number] 06:26:00* Test Item Value Reference Range Interpretation Comments TOTAL PROTEIN (test code = PROT) 6.2 gram/dL 6.4-8.2 L ALBUMIN (test code = ALB) 2.3 g/dL 3.4-5.0 L GLOBULIN (test code = GLOB) 3.9 gram/dL 2.7-4.2 N ALBUMIN/GLOBULIN RATIO (test code = A/G) 0.6 0.75-1.50 L BILIRUBIN TOTAL (test code = BILT) 0.20 mg/dL 0.0-1.0 N BILIRUBIN DIRECT (test code = BILD) < 0.05 mg/dL 0.0-0.20 N SGOT/AST (test code = AST) 12 IUnit/L 15-37 L SGPT/ALT (test code = ALT) 22 IUnit/L 12-78 N ALKALINE PHOSPHATASE TOTAL (test code = ALKP) 80 IUnit/L 45-117 N Note change in reference range due to change in reagent. [id number] 06:26:00* Test Item Value Reference Range Interpretation Comments PHOSPHORUS (test code = PHOS) 3.1 mg/dL 2.5-4.9 N [id number] 06:26:00* Test Item Value Reference Range Interpretation Comments MAGNESIUM (test code = MAG) 1.5 mg/dL 1.8-2.4 L CBC W/AUTO [id number] 06:09:00* Test Item Value Reference Range Interpretation Comments WHITE BLOOD CELL (test code = WBC) 5.4 K/mm3 4.5-12.5 N RED BLOOD CELL (test code = RBC) 3.74 mill/mm3 3.7-5.2 N HEMOGLOBIN (test code = HGB) 8.2 gram/dL 11.5-15.5 L HEMATOCRIT (test code = HCT) 26.8 % 36.0-46.0 L MEAN CELL VOLUME (test code = MCV) 71.7 fL 80-98 L MEAN CELL HGB (test code = MCH) 21.9 picogram 27.0-33.0 L MEAN CELL HGB CONCETRATION (test code = MCHC) 30.6 gram/dL 33.0-36. 0 L RED CELL DISTRIBUTION WIDTH (test code = RDW) 21.1 % 11.6-16. 2 H RED CELL DISTRIBUTION WIDTH SD (test code = RDW-SD) 52.6 fL 37 .0-51.0 H PLATELET COUNT (test code = PLT) 410 K/mm3 150-450 N MEAN PLATELET VOLUME (test code = MPV) 8.8 fL 6.7-11.0 N NEUTROPHIL % (test code = NT%) 54.2 % 39.0-69.0 N IMMATURE GRANULOCYTE % (test code = IG%) 0.2 % 0.0-5.0 N LYMPHOCYTE % (test code = LY%) 36.9 % 25.0-55.0 N MONOCYTE % (test code = MO%) 7.2 % 0.0-10.0 N EOSINOPHIL % (test code = EO%) 1.3 % 0.0-5.0 N BASOPHIL % (test code = BA%) 0.2 % 0.0-1.0 N NUCLEATED RBC % (test code = NRBC%) 0.0 % 0-0 N NEUTROPHIL # (test code = NT#) 2.92 K/mm3 1.8-7.7 N IMMATURE GRANULOCYTE # (test code = IG#) 0.01 x10 3/uL 0-0.03 N LYMPHOCYTE # (test code = LY#) 1.99 K/mm3 1.0-5.0 N MONOCYTE # (test code = MO#) 0.39 K/mm3 0-0.8 N EOSINOPHIL # (test code = EO#) 0.07 K/mm3 0.0-0.5 N BASOPHIL # (test code = BA#) 0.01 K/mm3 0.0-0.2 N NUCLEATED RBC # (test code = NRBC#) 0.00 K/mm3 0.0-0.1 N MANUAL DIFF REQUIRED (test code = MDIFF) NO, ONLY SCAN NEEDED DIFFERENTIAL [id number] 06:09:00* Test Item Value Reference Range Interpretation Comments STAIN ACCEPTABILITY (test code = STN ACCEPTABLE) STAIN ACCEPTABLE POLYCHROMASIA (test code = POLC) 1+ HYPOCHROMIA (test code = HYPO) 1+ ANISOCYTOSIS (test code = ANISO) 1+ MICROCYTOSIS (test code = MICR) 1+ TARGET CELLS (test code = TGT) 1+ PLATELET ESTIMATE (test code = PLTEST) ADEQUATE PLATELET MORPHOLOGY (test code = PLTMORPH) NORMAL BASIC METABOLIC [id number] 05:51:00* Test Item Value Reference Range Interpretation Comments SODIUM (test code = NA) 142 mmol/L 136-145 N POTASSIUM (test code = K) 3.3 mmol/L 3.5-5.1 L CHLORIDE (test code = CL) 110.0 mmol/L 98-107 H CARBON DIOXIDE (test code = CO2) 26.0 mmol/L 21-32 N ANION GAP (test code = GAP) 9.3 10-20 L GLUCOSE (test code = GLU) 85 mg/dL 74-106 N BLOOD UREA NITROGEN (test code = BUN) 13 mg/dL 7-18 N GLOMERULAR FILTRATION RATE (test code = GFR) > 60 mL/min >=60 Estimated GFR by using Modified MDRD formula.Chronic kidney disease is defined as either kidney damageor GFR <60 mL/min/1.73 m2 for >3 months. CREATININE (test code = CREAT) 0.40 mg/dL 0.55-1.02 L Note change in reference range due to change in reagent. BUN/CREATININE RATIO (test code = BUN/CREA) 32.5 10-20 H CALCIUM (test code = CA) 8.3 mg/dL 8.5-10.1 L HEPATIC FUNCTION [id number] 05:51:00* Test Item Value Reference Range Interpretation Comments TOTAL PROTEIN (test code = PROT) gram/dL 6.4-8.2 ALBUMIN (test code = ALB) g/dL 3.4-5.0 GLOBULIN (test code = GLOB) gram/dL 2.7-4.2 ALBUMIN/GLOBULIN RATIO (test code = A/G) 0.75-1.50 BILIRUBIN TOTAL (test code = BILT) mg/dL 0.0-1.0 BILIRUBIN DIRECT (test code = BILD) mg/dL 0.0-0.20 SGOT/AST (test code = AST) IUnit/L 15-37 SGPT/ALT (test code = ALT) IUnit/L 12-78 ALKALINE PHOSPHATASE TOTAL (test code = ALKP) IUnit/L 45-117 [id number] 05:51:00* Test Item Value Reference Range Interpretation Comments PHOSPHORUS (test code = PHOS) 3.1 mg/dL 2.5-4.9 N [id number] 05:51:00* Test Item Value Reference Range Interpretation Comments MAGNESIUM (test code = MAG) 1.5 mg/dL 1.8-2.4 L BASIC METABOLIC [id number] 05:39:00* Test Item Value Reference Range Interpretation Comments SODIUM (test code = NA) 142 mmol/L 136-145 N POTASSIUM (test code = K) 3.3 mmol/L 3.5-5.1 L CHLORIDE (test code = CL) 110.0 mmol/L 98-107 H CARBON DIOXIDE (test code = CO2) mmol/L 21-32 ANION GAP (test code = GAP) 10-20 GLUCOSE (test code = GLU) mg/dL 74-106 BLOOD UREA NITROGEN (test code = BUN) mg/dL 7-18 GLOMERULAR FILTRATION RATE (test code = GFR) mL/min >=60 CREATININE (test code = CREAT) mg/dL 0.55-1.02 BUN/CREATININE RATIO (test code = BUN/CREA) 10-20 CALCIUM (test code = CA) mg/dL 8.5-10.1 [id number] 05:39:00* Test Item Value Reference Range Interpretation Comments PHOSPHORUS (test code = PHOS) mg/dL 2.5-4.9 [id number] 05:39:00* Test Item Value Reference Range Interpretation Comments MAGNESIUM (test code = MAG) mg/dL 1.8-2.4 CBC W/AUTO [id number] 05:12:00* Test Item Value Reference Range Interpretation Comments WHITE BLOOD CELL (test code = WBC) 5.4 K/mm3 4.5-12.5 N RED BLOOD CELL (test code = RBC) 3.74 mill/mm3 3.7-5.2 N HEMOGLOBIN (test code = HGB) 8.2 gram/dL 11.5-15.5 L HEMATOCRIT (test code = HCT) 26.8 % 36.0-46.0 L MEAN CELL VOLUME (test code = MCV) 71.7 fL 80-98 L MEAN CELL HGB (test code = MCH) 21.9 picogram 27.0-33.0 L MEAN CELL HGB CONCETRATION (test code = MCHC) 30.6 gram/dL 33.0-36. 0 L RED CELL DISTRIBUTION WIDTH (test code = RDW) 21.1 % 11.6-16. 2 H RED CELL DISTRIBUTION WIDTH SD (test code = RDW-SD) 52.6 fL 37 .0-51.0 H PLATELET COUNT (test code = PLT) 410 K/mm3 150-450 N MEAN PLATELET VOLUME (test code = MPV) 8.8 fL 6.7-11.0 N NEUTROPHIL % (test code = NT%) 54.2 % 39.0-69.0 N IMMATURE GRANULOCYTE % (test code = IG%) 0.2 % 0.0-5.0 N LYMPHOCYTE % (test code = LY%) 36.9 % 25.0-55.0 N MONOCYTE % (test code = MO%) 7.2 % 0.0-10.0 N EOSINOPHIL % (test code = EO%) 1.3 % 0.0-5.0 N BASOPHIL % (test code = BA%) 0.2 % 0.0-1.0 N NUCLEATED RBC % (test code = NRBC%) 0.0 % 0-0 N NEUTROPHIL # (test code = NT#) 2.92 K/mm3 1.8-7.7 N IMMATURE GRANULOCYTE # (test code = IG#) 0.01 x10 3/uL 0-0.03 N LYMPHOCYTE # (test code = LY#) 1.99 K/mm3 1.0-5.0 N MONOCYTE # (test code = MO#) 0.39 K/mm3 0-0.8 N EOSINOPHIL # (test code = EO#) 0.07 K/mm3 0.0-0.5 N BASOPHIL # (test code = BA#) 0.01 K/mm3 0.0-0.2 N NUCLEATED RBC # (test code = NRBC#) 0.00 K/mm3 0.0-0.1 N MANUAL DIFF REQUIRED (test code = MDIFF) NO, ONLY SCAN NEEDED DIFFERENTIAL [id number] 05:12:00* Test Item Value Reference Range Interpretation Comments STAIN ACCEPTABILITY (test code = STN ACCEPTABLE) CABOT RINGS (test code = CAB) MORPHOLOGY COMMENT (test code = MOC) PLATELET ESTIMATE (test code = PLTEST) PLATELET MORPHOLOGY (test code = PLTMORPH) CBC W/AUTO [id number] 05:12:00* Test Item Value Reference Range Interpretation Comments WHITE BLOOD CELL (test code = WBC) 5.4 K/mm3 4.5-12.5 N RED BLOOD CELL (test code = RBC) 3.74 mill/mm3 3.7-5.2 N HEMOGLOBIN (test code = HGB) 8.2 gram/dL 11.5-15.5 L HEMATOCRIT (test code = HCT) 26.8 % 36.0-46.0 L MEAN CELL VOLUME (test code = MCV) 71.7 fL 80-98 L MEAN CELL HGB (test code = MCH) 21.9 picogram 27.0-33.0 L MEAN CELL HGB CONCETRATION (test code = MCHC) 30.6 gram/dL 33.0-36. 0 L RED CELL DISTRIBUTION WIDTH (test code = RDW) 21.1 % 11.6-16. 2 H RED CELL DISTRIBUTION WIDTH SD (test code = RDW-SD) 52.6 fL 37 .0-51.0 H PLATELET COUNT (test code = PLT) 410 K/mm3 150-450 N MEAN PLATELET VOLUME (test code = MPV) 8.8 fL 6.7-11.0 N NEUTROPHIL % (test code = NT%) 54.2 % 39.0-69.0 N IMMATURE GRANULOCYTE % (test code = IG%) 0.2 % 0.0-5.0 N LYMPHOCYTE % (test code = LY%) 36.9 % 25.0-55.0 N MONOCYTE % (test code = MO%) 7.2 % 0.0-10.0 N EOSINOPHIL % (test code = EO%) 1.3 % 0.0-5.0 N BASOPHIL % (test code = BA%) 0.2 % 0.0-1.0 N NUCLEATED RBC % (test code = NRBC%) 0.0 % 0-0 N NEUTROPHIL # (test code = NT#) 2.92 K/mm3 1.8-7.7 N IMMATURE GRANULOCYTE # (test code = IG#) 0.01 x10 3/uL 0-0.03 N LYMPHOCYTE # (test code = LY#) 1.99 K/mm3 1.0-5.0 N MONOCYTE # (test code = MO#) 0.39 K/mm3 0-0.8 N EOSINOPHIL # (test code = EO#) 0.07 K/mm3 0.0-0.5 N BASOPHIL # (test code = BA#) 0.01 K/mm3 0.0-0.2 N NUCLEATED RBC # (test code = NRBC#) 0.00 K/mm3 0.0-0.1 N MANUAL DIFF REQUIRED (test code = MDIFF) NO, ONLY SCAN NEEDED DIFFERENTIAL [id number] 05:12:00* Test Item Value Reference Range Interpretation Comments STAIN ACCEPTABILITY (test code = STN ACCEPTABLE) CABOT RINGS (test code = CAB) MORPHOLOGY COMMENT (test code = MOC) PLATELET ESTIMATE (test code = PLTEST) PLATELET MORPHOLOGY (test code = PLTMORPH) CBC W/AUTO [id number] 05:12:00* Test Item Value Reference Range Interpretation Comments WHITE BLOOD CELL (test code = WBC) 5.4 K/mm3 4.5-12.5 N RED BLOOD CELL (test code = RBC) 3.74 mill/mm3 3.7-5.2 N HEMOGLOBIN (test code = HGB) 8.2 gram/dL 11.5-15.5 L HEMATOCRIT (test code = HCT) 26.8 % 36.0-46.0 L MEAN CELL VOLUME (test code = MCV) 71.7 fL 80-98 L MEAN CELL HGB (test code = MCH) 21.9 picogram 27.0-33.0 L MEAN CELL HGB CONCETRATION (test code = MCHC) 30.6 gram/dL 33.0-36. 0 L RED CELL DISTRIBUTION WIDTH (test code = RDW) 21.1 % 11.6-16. 2 H RED CELL DISTRIBUTION WIDTH SD (test code = RDW-SD) 52.6 fL 37 .0-51.0 H PLATELET COUNT (test code = PLT) 410 K/mm3 150-450 N MEAN PLATELET VOLUME (test code = MPV) 8.8 fL 6.7-11.0 N NEUTROPHIL % (test code = NT%) 54.2 % 39.0-69.0 N IMMATURE GRANULOCYTE % (test code = IG%) 0.2 % 0.0-5.0 N LYMPHOCYTE % (test code = LY%) 36.9 % 25.0-55.0 N MONOCYTE % (test code = MO%) 7.2 % 0.0-10.0 N EOSINOPHIL % (test code = EO%) 1.3 % 0.0-5.0 N BASOPHIL % (test code = BA%) 0.2 % 0.0-1.0 N NUCLEATED RBC % (test code = NRBC%) 0.0 % 0-0 N NEUTROPHIL # (test code = NT#) 2.92 K/mm3 1.8-7.7 N IMMATURE GRANULOCYTE # (test code = IG#) 0.01 x10 3/uL 0-0.03 N LYMPHOCYTE # (test code = LY#) 1.99 K/mm3 1.0-5.0 N MONOCYTE # (test code = MO#) 0.39 K/mm3 0-0.8 N EOSINOPHIL # (test code = EO#) 0.07 K/mm3 0.0-0.5 N BASOPHIL # (test code = BA#) 0.01 K/mm3 0.0-0.2 N NUCLEATED RBC # (test code = NRBC#) 0.00 K/mm3 0.0-0.1 N MANUAL DIFF REQUIRED (test code = MDIFF) NO, ONLY SCAN NEEDED DIFFERENTIAL [id number] 05:12:00* Test Item Value Reference Range Interpretation Comments STAIN ACCEPTABILITY (test code = STN ACCEPTABLE) MORPHOLOGY COMMENT (test code = MOC) PLATELET ESTIMATE (test code = PLTEST) PLATELET MORPHOLOGY (test code = PLTMORPH) CBC W/AUTO [id number] 05:12:00* Test Item Value Reference Range Interpretation Comments WHITE BLOOD CELL (test code = WBC) 5.4 K/mm3 4.5-12.5 N RED BLOOD CELL (test code = RBC) 3.74 mill/mm3 3.7-5.2 N HEMOGLOBIN (test code = HGB) 8.2 gram/dL 11.5-15.5 L HEMATOCRIT (test code = HCT) 26.8 % 36.0-46.0 L MEAN CELL VOLUME (test code = MCV) 71.7 fL 80-98 L MEAN CELL HGB (test code = MCH) 21.9 picogram 27.0-33.0 L MEAN CELL HGB CONCETRATION (test code = MCHC) 30.6 gram/dL 33.0-36. 0 L RED CELL DISTRIBUTION WIDTH (test code = RDW) 21.1 % 11.6-16. 2 H RED CELL DISTRIBUTION WIDTH SD (test code = RDW-SD) 52.6 fL 37 .0-51.0 H PLATELET COUNT (test code = PLT) 410 K/mm3 150-450 N MEAN PLATELET VOLUME (test code = MPV) 8.8 fL 6.7-11.0 N NEUTROPHIL % (test code = NT%) 54.2 % 39.0-69.0 N IMMATURE GRANULOCYTE % (test code = IG%) 0.2 % 0.0-5.0 N LYMPHOCYTE % (test code = LY%) 36.9 % 25.0-55.0 N MONOCYTE % (test code = MO%) 7.2 % 0.0-10.0 N EOSINOPHIL % (test code = EO%) 1.3 % 0.0-5.0 N BASOPHIL % (test code = BA%) 0.2 % 0.0-1.0 N NUCLEATED RBC % (test code = NRBC%) 0.0 % 0-0 N NEUTROPHIL # (test code = NT#) 2.92 K/mm3 1.8-7.7 N IMMATURE GRANULOCYTE # (test code = IG#) 0.01 x10 3/uL 0-0.03 N LYMPHOCYTE # (test code = LY#) 1.99 K/mm3 1.0-5.0 N MONOCYTE # (test code = MO#) 0.39 K/mm3 0-0.8 N EOSINOPHIL # (test code = EO#) 0.07 K/mm3 0.0-0.5 N BASOPHIL # (test code = BA#) 0.01 K/mm3 0.0-0.2 N NUCLEATED RBC # (test code = NRBC#) 0.00 K/mm3 0.0-0.1 N MANUAL DIFF REQUIRED (test code = MDIFF) NO, ONLY SCAN NEEDED DIFFERENTIAL [id number] 05:12:00* Test Item Value Reference Range Interpretation Comments STAIN ACCEPTABILITY (test code = STN ACCEPTABLE) CABOT RINGS (test code = CAB) MORPHOLOGY COMMENT (test code = MOC) PLATELET ESTIMATE (test code = PLTEST) PLATELET MORPHOLOGY (test code = PLTMORPH) BASIC METABOLIC [id number] 01:53:00* Test Item Value Reference Range Interpretation Comments SODIUM (test code = NA) 143 mmol/L 136-145 N POTASSIUM (test code = K) 3.5 mmol/L 3.5-5.1 N CHLORIDE (test code = CL) 110.0 mmol/L 98-107 H CARBON DIOXIDE (test code = CO2) 26.0 mmol/L 21-32 N ANION GAP (test code = GAP) 10.5 10-20 N GLUCOSE (test code = GLU) 103 mg/dL 74-106 N BLOOD UREA NITROGEN (test code = BUN) 14 mg/dL 7-18 N GLOMERULAR FILTRATION RATE (test code = GFR) > 60 mL/min >=60 Estimated GFR by using Modified MDRD formula.Chronic kidney disease is defined as either kidney damageor GFR <60 mL/min/1.73 m2 for >3 months. CREATININE (test code = CREAT) 0.50 mg/dL 0.55-1.02 L Note change in reference range due to change in reagent. BUN/CREATININE RATIO (test code = BUN/CREA) 28.0 10-20 H CALCIUM (test code = CA) 8.3 mg/dL 8.5-10.1 L [id number] 01:53:00* Test Item Value Reference Range Interpretation Comments PHOSPHORUS (test code = PHOS) 2.6 mg/dL 2.5-4.9 N [id number] 01:53:00* Test Item Value Reference Range Interpretation Comments MAGNESIUM (test code = MAG) 1.6 mg/dL 1.8-2.4 L CBC W/O [id number] 01:28:00* Test Item Value Reference Range Interpretation Comments WHITE BLOOD CELL (test code = WBC) 5.8 K/mm3 4.5-12.5 N RED BLOOD CELL (test code = RBC) 3.81 mill/mm3 3.7-5.2 N HEMOGLOBIN (test code = HGB) 8.3 gram/dL 11.5-15.5 L HEMATOCRIT (test code = HCT) 28.0 % 36.0-46.0 L MEAN CELL VOLUME (test code = MCV) 73.5 fL 80-98 L MEAN CELL HGB (test code = MCH) 21.8 picogram 27.0-33.0 L MEAN CELL HGB CONCETRATION (test code = MCHC) 29.6 gram/dL 33.0-36. 0 L RED CELL DISTRIBUTION WIDTH (test code = RDW) 20.9 % 11.6-16. 2 H PLATELET COUNT (test code = PLT) 402 K/mm3 150-450 RESULT VERIFIED BY REPEAT ANALYSIS MEAN PLATELET VOLUME (test code = MPV) 8.7 fL 6.7-11.0 N CBC W/AUTO [id number] 21:17:00* Test Item Value Reference Range Interpretation Comments WHITE BLOOD CELL (test code = WBC) 5.5 K/mm3 4.5-12.5 N RED BLOOD CELL (test code = RBC) 3.86 mill/mm3 3.7-5.2 N HEMOGLOBIN (test code = HGB) 8.5 gram/dL 11.5-15.5 L HEMATOCRIT (test code = HCT) 28.4 % 36.0-46.0 L MEAN CELL VOLUME (test code = MCV) 73.6 fL 80-98 L MEAN CELL HGB (test code = MCH) 22.0 picogram 27.0-33.0 L MEAN CELL HGB CONCETRATION (test code = MCHC) 29.9 gram/dL 33.0-36. 0 L RED CELL DISTRIBUTION WIDTH (test code = RDW) 21.0 % 11.6-16. 2 H RED CELL DISTRIBUTION WIDTH SD (test code = RDW-SD) 53.5 fL 37 .0-51.0 H PLATELET COUNT (test code = PLT) 313 K/mm3 150-450 RESULT VERIFIED BY REPEAT ANALYSIS MEAN PLATELET VOLUME (test code = MPV) 9.1 fL 6.7-11.0 N NEUTROPHIL % (test code = NT%) 60.9 % 39.0-69.0 N IMMATURE GRANULOCYTE % (test code = IG%) 0.7 % 0.0-5.0 N LYMPHOCYTE % (test code = LY%) 30.8 % 25.0-55.0 N MONOCYTE % (test code = MO%) 5.8 % 0.0-10.0 N EOSINOPHIL % (test code = EO%) 1.1 % 0.0-5.0 N BASOPHIL % (test code = BA%) 0.7 % 0.0-1.0 N NUCLEATED RBC % (test code = NRBC%) 0.4 % 0-0 H NEUTROPHIL # (test code = NT#) 3.36 K/mm3 1.8-7.7 N IMMATURE GRANULOCYTE # (test code = IG#) 0.04 x10 3/uL 0-0.03 H LYMPHOCYTE # (test code = LY#) 1.70 K/mm3 1.0-5.0 N MONOCYTE # (test code = MO#) 0.32 K/mm3 0-0.8 N EOSINOPHIL # (test code = EO#) 0.06 K/mm3 0.0-0.5 N BASOPHIL # (test code = BA#) 0.04 K/mm3 0.0-0.2 N NUCLEATED RBC # (test code = NRBC#) 0.02 K/mm3 0.0-0.1 N MANUAL DIFF REQUIRED (test code = MDIFF) NO, ONLY SCAN NEEDED DIFFERENTIAL [id number] 21:17:00* Test Item Value Reference Range Interpretation Comments STAIN ACCEPTABILITY (test code = STN ACCEPTABLE) STAIN ACCEPTABLE ANISOCYTOSIS (test code = ANISO) 1+ PLATELET ESTIMATE (test code = PLTEST) ADEQUATE PLATELET MORPHOLOGY (test code = PLTMORPH) NORMAL [id number] 20:35:00* Test Item Value Reference Range Interpretation Comments GLUBED (test code = GLUBED) 194 mg/dL 74-106 H Performed by certified repeater operator at [facility] CBC W/AUTO [id number] 20:27:00* Test Item Value Reference Range Interpretation Comments WHITE BLOOD CELL (test code = WBC) 5.5 K/mm3 4.5-12.5 N RED BLOOD CELL (test code = RBC) 3.86 mill/mm3 3.7-5.2 N HEMOGLOBIN (test code = HGB) 8.5 gram/dL 11.5-15.5 L HEMATOCRIT (test code = HCT) 28.4 % 36.0-46.0 L MEAN CELL VOLUME (test code = MCV) 73.6 fL 80-98 L MEAN CELL HGB (test code = MCH) 22.0 picogram 27.0-33.0 L MEAN CELL HGB CONCETRATION (test code = MCHC) 29.9 gram/dL 33.0-36. 0 L RED CELL DISTRIBUTION WIDTH (test code = RDW) 21.0 % 11.6-16. 2 H RED CELL DISTRIBUTION WIDTH SD (test code = RDW-SD) 53.5 fL 37 .0-51.0 H PLATELET COUNT (test code = PLT) 313 K/mm3 150-450 RESULT VERIFIED BY REPEAT ANALYSIS MEAN PLATELET VOLUME (test code = MPV) 9.1 fL 6.7-11.0 N NEUTROPHIL % (test code = NT%) 60.9 % 39.0-69.0 N IMMATURE GRANULOCYTE % (test code = IG%) 0.7 % 0.0-5.0 N LYMPHOCYTE % (test code = LY%) 30.8 % 25.0-55.0 N MONOCYTE % (test code = MO%) 5.8 % 0.0-10.0 N EOSINOPHIL % (test code = EO%) 1.1 % 0.0-5.0 N BASOPHIL % (test code = BA%) 0.7 % 0.0-1.0 N NUCLEATED RBC % (test code = NRBC%) 0.4 % 0-0 H NEUTROPHIL # (test code = NT#) 3.36 K/mm3 1.8-7.7 N IMMATURE GRANULOCYTE # (test code = IG#) 0.04 x10 3/uL 0-0.03 H LYMPHOCYTE # (test code = LY#) 1.70 K/mm3 1.0-5.0 N MONOCYTE # (test code = MO#) 0.32 K/mm3 0-0.8 N EOSINOPHIL # (test code = EO#) 0.06 K/mm3 0.0-0.5 N BASOPHIL # (test code = BA#) 0.04 K/mm3 0.0-0.2 N NUCLEATED RBC # (test code = NRBC#) 0.02 K/mm3 0.0-0.1 N MANUAL DIFF REQUIRED (test code = MDIFF) NO, ONLY SCAN NEEDED DIFFERENTIAL [id number] 20:27:00* Test Item Value Reference Range Interpretation Comments STAIN ACCEPTABILITY (test code = STN ACCEPTABLE) CABOT RINGS (test code = CAB) MORPHOLOGY COMMENT (test code = MOC) PLATELET ESTIMATE (test code = PLTEST) PLATELET MORPHOLOGY (test code = PLTMORPH) CBC W/AUTO [id number] 20:27:00* Test Item Value Reference Range Interpretation Comments WHITE BLOOD CELL (test code = WBC) 5.5 K/mm3 4.5-12.5 N RED BLOOD CELL (test code = RBC) 3.86 mill/mm3 3.7-5.2 N HEMOGLOBIN (test code = HGB) 8.5 gram/dL 11.5-15.5 L HEMATOCRIT (test code = HCT) 28.4 % 36.0-46.0 L MEAN CELL VOLUME (test code = MCV) 73.6 fL 80-98 L MEAN CELL HGB (test code = MCH) 22.0 picogram 27.0-33.0 L MEAN CELL HGB CONCETRATION (test code = MCHC) 29.9 gram/dL 33.0-36. 0 L RED CELL DISTRIBUTION WIDTH (test code = RDW) 21.0 % 11.6-16. 2 H RED CELL DISTRIBUTION WIDTH SD (test code = RDW-SD) 53.5 fL 37 .0-51.0 H PLATELET COUNT (test code = PLT) 313 K/mm3 150-450 RESULT VERIFIED BY REPEAT ANALYSIS MEAN PLATELET VOLUME (test code = MPV) 9.1 fL 6.7-11.0 N NEUTROPHIL % (test code = NT%) 60.9 % 39.0-69.0 N IMMATURE GRANULOCYTE % (test code = IG%) 0.7 % 0.0-5.0 N LYMPHOCYTE % (test code = LY%) 30.8 % 25.0-55.0 N MONOCYTE % (test code = MO%) 5.8 % 0.0-10.0 N EOSINOPHIL % (test code = EO%) 1.1 % 0.0-5.0 N BASOPHIL % (test code = BA%) 0.7 % 0.0-1.0 N NUCLEATED RBC % (test code = NRBC%) 0.4 % 0-0 H NEUTROPHIL # (test code = NT#) 3.36 K/mm3 1.8-7.7 N IMMATURE GRANULOCYTE # (test code = IG#) 0.04 x10 3/uL 0-0.03 H LYMPHOCYTE # (test code = LY#) 1.70 K/mm3 1.0-5.0 N MONOCYTE # (test code = MO#) 0.32 K/mm3 0-0.8 N EOSINOPHIL # (test code = EO#) 0.06 K/mm3 0.0-0.5 N BASOPHIL # (test code = BA#) 0.04 K/mm3 0.0-0.2 N NUCLEATED RBC # (test code = NRBC#) 0.02 K/mm3 0.0-0.1 N MANUAL DIFF REQUIRED (test code = MDIFF) NO, ONLY SCAN NEEDED DIFFERENTIAL [id number] 20:27:00* Test Item Value Reference Range Interpretation Comments STAIN ACCEPTABILITY (test code = STN ACCEPTABLE) CABOT RINGS (test code = CAB) MORPHOLOGY COMMENT (test code = MOC) PLATELET ESTIMATE (test code = PLTEST) PLATELET MORPHOLOGY (test code = PLTMORPH) CBC W/AUTO [id number] 20:27:00* Test Item Value Reference Range Interpretation Comments WHITE BLOOD CELL (test code = WBC) 5.5 K/mm3 4.5-12.5 N RED BLOOD CELL (test code = RBC) 3.86 mill/mm3 3.7-5.2 N HEMOGLOBIN (test code = HGB) 8.5 gram/dL 11.5-15.5 L HEMATOCRIT (test code = HCT) 28.4 % 36.0-46.0 L MEAN CELL VOLUME (test code = MCV) 73.6 fL 80-98 L MEAN CELL HGB (test code = MCH) 22.0 picogram 27.0-33.0 L MEAN CELL HGB CONCETRATION (test code = MCHC) 29.9 gram/dL 33.0-36. 0 L RED CELL DISTRIBUTION WIDTH (test code = RDW) 21.0 % 11.6-16. 2 H RED CELL DISTRIBUTION WIDTH SD (test code = RDW-SD) 53.5 fL 37 .0-51.0 H PLATELET COUNT (test code = PLT) 313 K/mm3 150-450 RESULT VERIFIED BY REPEAT ANALYSIS MEAN PLATELET VOLUME (test code = MPV) 9.1 fL 6.7-11.0 N NEUTROPHIL % (test code = NT%) 60.9 % 39.0-69.0 N IMMATURE GRANULOCYTE % (test code = IG%) 0.7 % 0.0-5.0 N LYMPHOCYTE % (test code = LY%) 30.8 % 25.0-55.0 N MONOCYTE % (test code = MO%) 5.8 % 0.0-10.0 N EOSINOPHIL % (test code = EO%) 1.1 % 0.0-5.0 N BASOPHIL % (test code = BA%) 0.7 % 0.0-1.0 N NUCLEATED RBC % (test code = NRBC%) 0.4 % 0-0 H NEUTROPHIL # (test code = NT#) 3.36 K/mm3 1.8-7.7 N IMMATURE GRANULOCYTE # (test code = IG#) 0.04 x10 3/uL 0-0.03 H LYMPHOCYTE # (test code = LY#) 1.70 K/mm3 1.0-5.0 N MONOCYTE # (test code = MO#) 0.32 K/mm3 0-0.8 N EOSINOPHIL # (test code = EO#) 0.06 K/mm3 0.0-0.5 N BASOPHIL # (test code = BA#) 0.04 K/mm3 0.0-0.2 N NUCLEATED RBC # (test code = NRBC#) 0.02 K/mm3 0.0-0.1 N MANUAL DIFF REQUIRED (test code = MDIFF) NO, ONLY SCAN NEEDED DIFFERENTIAL [id number] 20:27:00* Test Item Value Reference Range Interpretation Comments STAIN ACCEPTABILITY (test code = STN ACCEPTABLE) MORPHOLOGY COMMENT (test code = MOC) PLATELET ESTIMATE (test code = PLTEST) PLATELET MORPHOLOGY (test code = PLTMORPH) CBC W/AUTO [id number] 20:27:00* Test Item Value Reference Range Interpretation Comments WHITE BLOOD CELL (test code = WBC) 5.5 K/mm3 4.5-12.5 N RED BLOOD CELL (test code = RBC) 3.86 mill/mm3 3.7-5.2 N HEMOGLOBIN (test code = HGB) 8.5 gram/dL 11.5-15.5 L HEMATOCRIT (test code = HCT) 28.4 % 36.0-46.0 L MEAN CELL VOLUME (test code = MCV) 73.6 fL 80-98 L MEAN CELL HGB (test code = MCH) 22.0 picogram 27.0-33.0 L MEAN CELL HGB CONCETRATION (test code = MCHC) 29.9 gram/dL 33.0-36. 0 L RED CELL DISTRIBUTION WIDTH (test code = RDW) 21.0 % 11.6-16. 2 H RED CELL DISTRIBUTION WIDTH SD (test code = RDW-SD) 53.5 fL 37 .0-51.0 H PLATELET COUNT (test code = PLT) 313 K/mm3 150-450 RESULT VERIFIED BY REPEAT ANALYSIS MEAN PLATELET VOLUME (test code = MPV) 9.1 fL 6.7-11.0 N NEUTROPHIL % (test code = NT%) 60.9 % 39.0-69.0 N IMMATURE GRANULOCYTE % (test code = IG%) 0.7 % 0.0-5.0 N LYMPHOCYTE % (test code = LY%) 30.8 % 25.0-55.0 N MONOCYTE % (test code = MO%) 5.8 % 0.0-10.0 N EOSINOPHIL % (test code = EO%) 1.1 % 0.0-5.0 N BASOPHIL % (test code = BA%) 0.7 % 0.0-1.0 N NUCLEATED RBC % (test code = NRBC%) 0.4 % 0-0 H NEUTROPHIL # (test code = NT#) 3.36 K/mm3 1.8-7.7 N IMMATURE GRANULOCYTE # (test code = IG#) 0.04 x10 3/uL 0-0.03 H LYMPHOCYTE # (test code = LY#) 1.70 K/mm3 1.0-5.0 N MONOCYTE # (test code = MO#) 0.32 K/mm3 0-0.8 N EOSINOPHIL # (test code = EO#) 0.06 K/mm3 0.0-0.5 N BASOPHIL # (test code = BA#) 0.04 K/mm3 0.0-0.2 N NUCLEATED RBC # (test code = NRBC#) 0.02 K/mm3 0.0-0.1 N MANUAL DIFF REQUIRED (test code = MDIFF) NO, ONLY SCAN NEEDED DIFFERENTIAL [id number] 20:27:00* Test Item Value Reference Range Interpretation Comments STAIN ACCEPTABILITY (test code = STN ACCEPTABLE) CABOT RINGS (test code = CAB) MORPHOLOGY COMMENT (test code = MOC) PLATELET ESTIMATE (test code = PLTEST) PLATELET MORPHOLOGY (test code = PLTMORPH) [id number] 16:16:00* Test Item Value Reference Range Interpretation Comments GLUBED (test code = GLUBED) 181 mg/dL 74-106 H Performed by certified repeater operator at [facility] CBC W/AUTO [id number] 12:30:00* Test Item Value Reference Range Interpretation Comments WHITE BLOOD CELL (test code = WBC) 6.5 K/mm3 4.5-12.5 N RED BLOOD CELL (test code = RBC) 3.73 mill/mm3 3.7-5.2 N HEMOGLOBIN (test code = HGB) 8.1 gram/dL 11.5-15.5 L HEMATOCRIT (test code = HCT) 27.6 % 36.0-46.0 L MEAN CELL VOLUME (test code = MCV) 74.0 fL 80-98 L MEAN CELL HGB (test code = MCH) 21.7 picogram 27.0-33.0 L MEAN CELL HGB CONCETRATION (test code = MCHC) 29.3 gram/dL 33.0-36. 0 L RED CELL DISTRIBUTION WIDTH (test code = RDW) 20.7 % 11.6-16. 2 H RED CELL DISTRIBUTION WIDTH SD (test code = RDW-SD) 54.0 fL 37 .0-51.0 H PLATELET COUNT (test code = PLT) 426 K/mm3 150-450 N MEAN PLATELET VOLUME (test code = MPV) 8.8 fL 6.7-11.0 N NEUTROPHIL % (test code = NT%) 65.0 % 39.0-69.0 N IMMATURE GRANULOCYTE % (test code = IG%) 0.3 % 0.0-5.0 N LYMPHOCYTE % (test code = LY%) 26.8 % 25.0-55.0 N MONOCYTE % (test code = MO%) 6.7 % 0.0-10.0 N EOSINOPHIL % (test code = EO%) 0.9 % 0.0-5.0 N BASOPHIL % (test code = BA%) 0.3 % 0.0-1.0 N NUCLEATED RBC % (test code = NRBC%) 0.0 % 0-0 N NEUTROPHIL # (test code = NT#) 4.23 K/mm3 1.8-7.7 N IMMATURE GRANULOCYTE # (test code = IG#) 0.02 x10 3/uL 0-0.03 N LYMPHOCYTE # (test code = LY#) 1.75 K/mm3 1.0-5.0 N MONOCYTE # (test code = MO#) 0.44 K/mm3 0-0.8 N EOSINOPHIL # (test code = EO#) 0.06 K/mm3 0.0-0.5 N BASOPHIL # (test code = BA#) 0.02 K/mm3 0.0-0.2 N NUCLEATED RBC # (test code = NRBC#) 0.00 K/mm3 0.0-0.1 N MANUAL DIFF REQUIRED (test code = MDIFF) NO, ONLY SCAN NEEDED DIFFERENTIAL [id number] 12:30:00* Test Item Value Reference Range Interpretation Comments STAIN ACCEPTABILITY (test code = STN ACCEPTABLE) STAIN ACCEPTABLE POLYCHROMASIA (test code = POLC) 1+ HYPOCHROMIA (test code = HYPO) 1+ ANISOCYTOSIS (test code = ANISO) 1+ PLATELET ESTIMATE (test code = PLTEST) ADEQUATE PLATELET MORPHOLOGY (test code = PLTMORPH) NORMAL CBC W/AUTO [id number] 12:04:00* Test Item Value Reference Range Interpretation Comments WHITE BLOOD CELL (test code = WBC) 6.5 K/mm3 4.5-12.5 N RED BLOOD CELL (test code = RBC) 3.73 mill/mm3 3.7-5.2 N HEMOGLOBIN (test code = HGB) 8.1 gram/dL 11.5-15.5 L HEMATOCRIT (test code = HCT) 27.6 % 36.0-46.0 L MEAN CELL VOLUME (test code = MCV) 74.0 fL 80-98 L MEAN CELL HGB (test code = MCH) 21.7 picogram 27.0-33.0 L MEAN CELL HGB CONCETRATION (test code = MCHC) 29.3 gram/dL 33.0-36. 0 L RED CELL DISTRIBUTION WIDTH (test code = RDW) 20.7 % 11.6-16. 2 H RED CELL DISTRIBUTION WIDTH SD (test code = RDW-SD) 54.0 fL 37 .0-51.0 H PLATELET COUNT (test code = PLT) 426 K/mm3 150-450 N MEAN PLATELET VOLUME (test code = MPV) 8.8 fL 6.7-11.0 N NEUTROPHIL % (test code = NT%) 65.0 % 39.0-69.0 N IMMATURE GRANULOCYTE % (test code = IG%) 0.3 % 0.0-5.0 N LYMPHOCYTE % (test code = LY%) 26.8 % 25.0-55.0 N MONOCYTE % (test code = MO%) 6.7 % 0.0-10.0 N EOSINOPHIL % (test code = EO%) 0.9 % 0.0-5.0 N BASOPHIL % (test code = BA%) 0.3 % 0.0-1.0 N NUCLEATED RBC % (test code = NRBC%) 0.0 % 0-0 N NEUTROPHIL # (test code = NT#) 4.23 K/mm3 1.8-7.7 N IMMATURE GRANULOCYTE # (test code = IG#) 0.02 x10 3/uL 0-0.03 N LYMPHOCYTE # (test code = LY#) 1.75 K/mm3 1.0-5.0 N MONOCYTE # (test code = MO#) 0.44 K/mm3 0-0.8 N EOSINOPHIL # (test code = EO#) 0.06 K/mm3 0.0-0.5 N BASOPHIL # (test code = BA#) 0.02 K/mm3 0.0-0.2 N NUCLEATED RBC # (test code = NRBC#) 0.00 K/mm3 0.0-0.1 N MANUAL DIFF REQUIRED (test code = MDIFF) NO, ONLY SCAN NEEDED DIFFERENTIAL [id number] 12:04:00* Test Item Value Reference Range Interpretation Comments STAIN ACCEPTABILITY (test code = STN ACCEPTABLE) MORPHOLOGY COMMENT (test code = MOC) PLATELET ESTIMATE (test code = PLTEST) PLATELET MORPHOLOGY (test code = PLTMORPH) CBC W/AUTO [id number] 12:02:00* Test Item Value Reference Range Interpretation Comments WHITE BLOOD CELL (test code = WBC) 6.5 K/mm3 4.5-12.5 N RED BLOOD CELL (test code = RBC) 3.73 mill/mm3 3.7-5.2 N HEMOGLOBIN (test code = HGB) 8.1 gram/dL 11.5-15.5 L HEMATOCRIT (test code = HCT) 27.6 % 36.0-46.0 L MEAN CELL VOLUME (test code = MCV) 74.0 fL 80-98 L MEAN CELL HGB (test code = MCH) 21.7 picogram 27.0-33.0 L MEAN CELL HGB CONCETRATION (test code = MCHC) 29.3 gram/dL 33.0-36. 0 L RED CELL DISTRIBUTION WIDTH (test code = RDW) 20.7 % 11.6-16. 2 H RED CELL DISTRIBUTION WIDTH SD (test code = RDW-SD) 54.0 fL 37 .0-51.0 H PLATELET COUNT (test code = PLT) 426 K/mm3 150-450 N MEAN PLATELET VOLUME (test code = MPV) 8.8 fL 6.7-11.0 N NEUTROPHIL % (test code = NT%) 65.0 % 39.0-69.0 N IMMATURE GRANULOCYTE % (test code = IG%) 0.3 % 0.0-5.0 N LYMPHOCYTE % (test code = LY%) 26.8 % 25.0-55.0 N MONOCYTE % (test code = MO%) 6.7 % 0.0-10.0 N EOSINOPHIL % (test code = EO%) 0.9 % 0.0-5.0 N BASOPHIL % (test code = BA%) 0.3 % 0.0-1.0 N NUCLEATED RBC % (test code = NRBC%) 0.0 % 0-0 N NEUTROPHIL # (test code = NT#) 4.23 K/mm3 1.8-7.7 N IMMATURE GRANULOCYTE # (test code = IG#) 0.02 x10 3/uL 0-0.03 N LYMPHOCYTE # (test code = LY#) 1.75 K/mm3 1.0-5.0 N MONOCYTE # (test code = MO#) 0.44 K/mm3 0-0.8 N EOSINOPHIL # (test code = EO#) 0.06 K/mm3 0.0-0.5 N BASOPHIL # (test code = BA#) 0.02 K/mm3 0.0-0.2 N NUCLEATED RBC # (test code = NRBC#) 0.00 K/mm3 0.0-0.1 N MANUAL DIFF REQUIRED (test code = MDIFF) NO, ONLY SCAN NEEDED DIFFERENTIAL [id number] 12:02:00* Test Item Value Reference Range Interpretation Comments STAIN ACCEPTABILITY (test code = STN ACCEPTABLE) CABOT RINGS (test code = CAB) MORPHOLOGY COMMENT (test code = MOC) PLATELET ESTIMATE (test code = PLTEST) PLATELET MORPHOLOGY (test code = PLTMORPH) CBC W/AUTO [id number] 12:02:00* Test Item Value Reference Range Interpretation Comments WHITE BLOOD CELL (test code = WBC) 6.5 K/mm3 4.5-12.5 N RED BLOOD CELL (test code = RBC) 3.73 mill/mm3 3.7-5.2 N HEMOGLOBIN (test code = HGB) 8.1 gram/dL 11.5-15.5 L HEMATOCRIT (test code = HCT) 27.6 % 36.0-46.0 L MEAN CELL VOLUME (test code = MCV) 74.0 fL 80-98 L MEAN CELL HGB (test code = MCH) 21.7 picogram 27.0-33.0 L MEAN CELL HGB CONCETRATION (test code = MCHC) 29.3 gram/dL 33.0-36. 0 L RED CELL DISTRIBUTION WIDTH (test code = RDW) 20.7 % 11.6-16. 2 H RED CELL DISTRIBUTION WIDTH SD (test code = RDW-SD) 54.0 fL 37 .0-51.0 H PLATELET COUNT (test code = PLT) 426 K/mm3 150-450 N MEAN PLATELET VOLUME (test code = MPV) 8.8 fL 6.7-11.0 N NEUTROPHIL % (test code = NT%) 65.0 % 39.0-69.0 N IMMATURE GRANULOCYTE % (test code = IG%) 0.3 % 0.0-5.0 N LYMPHOCYTE % (test code = LY%) 26.8 % 25.0-55.0 N MONOCYTE % (test code = MO%) 6.7 % 0.0-10.0 N EOSINOPHIL % (test code = EO%) 0.9 % 0.0-5.0 N BASOPHIL % (test code = BA%) 0.3 % 0.0-1.0 N NUCLEATED RBC % (test code = NRBC%) 0.0 % 0-0 N NEUTROPHIL # (test code = NT#) 4.23 K/mm3 1.8-7.7 N IMMATURE GRANULOCYTE # (test code = IG#) 0.02 x10 3/uL 0-0.03 N LYMPHOCYTE # (test code = LY#) 1.75 K/mm3 1.0-5.0 N MONOCYTE # (test code = MO#) 0.44 K/mm3 0-0.8 N EOSINOPHIL # (test code = EO#) 0.06 K/mm3 0.0-0.5 N BASOPHIL # (test code = BA#) 0.02 K/mm3 0.0-0.2 N NUCLEATED RBC # (test code = NRBC#) 0.00 K/mm3 0.0-0.1 N MANUAL DIFF REQUIRED (test code = MDIFF) NO, ONLY SCAN NEEDED DIFFERENTIAL [id number] 12:02:00* Test Item Value Reference Range Interpretation Comments STAIN ACCEPTABILITY (test code = STN ACCEPTABLE) MORPHOLOGY COMMENT (test code = MOC) PLATELET ESTIMATE (test code = PLTEST) PLATELET MORPHOLOGY (test code = PLTMORPH) CBC W/AUTO [id number] 12:02:00* Test Item Value Reference Range Interpretation Comments WHITE BLOOD CELL (test code = WBC) 6.5 K/mm3 4.5-12.5 N RED BLOOD CELL (test code = RBC) 3.73 mill/mm3 3.7-5.2 N HEMOGLOBIN (test code = HGB) 8.1 gram/dL 11.5-15.5 L HEMATOCRIT (test code = HCT) 27.6 % 36.0-46.0 L MEAN CELL VOLUME (test code = MCV) 74.0 fL 80-98 L MEAN CELL HGB (test code = MCH) 21.7 picogram 27.0-33.0 L MEAN CELL HGB CONCETRATION (test code = MCHC) 29.3 gram/dL 33.0-36. 0 L RED CELL DISTRIBUTION WIDTH (test code = RDW) 20.7 % 11.6-16. 2 H RED CELL DISTRIBUTION WIDTH SD (test code = RDW-SD) 54.0 fL 37 .0-51.0 H PLATELET COUNT (test code = PLT) 426 K/mm3 150-450 N MEAN PLATELET VOLUME (test code = MPV) 8.8 fL 6.7-11.0 N NEUTROPHIL % (test code = NT%) 65.0 % 39.0-69.0 N IMMATURE GRANULOCYTE % (test code = IG%) 0.3 % 0.0-5.0 N LYMPHOCYTE % (test code = LY%) 26.8 % 25.0-55.0 N MONOCYTE % (test code = MO%) 6.7 % 0.0-10.0 N EOSINOPHIL % (test code = EO%) 0.9 % 0.0-5.0 N BASOPHIL % (test code = BA%) 0.3 % 0.0-1.0 N NUCLEATED RBC % (test code = NRBC%) 0.0 % 0-0 N NEUTROPHIL # (test code = NT#) 4.23 K/mm3 1.8-7.7 N IMMATURE GRANULOCYTE # (test code = IG#) 0.02 x10 3/uL 0-0.03 N LYMPHOCYTE # (test code = LY#) 1.75 K/mm3 1.0-5.0 N MONOCYTE # (test code = MO#) 0.44 K/mm3 0-0.8 N EOSINOPHIL # (test code = EO#) 0.06 K/mm3 0.0-0.5 N BASOPHIL # (test code = BA#) 0.02 K/mm3 0.0-0.2 N NUCLEATED RBC # (test code = NRBC#) 0.00 K/mm3 0.0-0.1 N MANUAL DIFF REQUIRED (test code = MDIFF) NO, ONLY SCAN NEEDED DIFFERENTIAL [id number] 12:02:00* Test Item Value Reference Range Interpretation Comments STAIN ACCEPTABILITY (test code = STN ACCEPTABLE) CABOT RINGS (test code = CAB) MORPHOLOGY COMMENT (test code = MOC) PLATELET ESTIMATE (test code = PLTEST) PLATELET MORPHOLOGY (test code = PLTMORPH) [id number] 11:05:00* Test Item Value Reference Range Interpretation Comments GLUBED (test code = GLUBED) 162 mg/dL 74-106 H Performed by certified repeater operator at [facility] [id number] 08:00:00* Test Item Value Reference Range Interpretation Comments GLUBED (test code = GLUBED) 96 mg/dL 74-106 N Performed by certified repeater operator at [facility] - XR CHEST 1 [id number] 07:51:00 FAX: Efraín Fonseca [phone] [place]: St: [facility] FAX: Radha Villegas MD [phone] Name: DIEGO GARCÍA [facility] : 1975 Age/S: 44/F [address] [facility] Unit #: [id number] Loc: V.S23 [place] [address] Phys: Efraín Fonseca Acct: [id number] Dis Date: Status: ADM IN PHONE #: [phone] Exam Date: 10/05/2019 0354 FAX #: [phone] Reason: updated pulm view EXAMS: CPT CODE: [id number] XR CHEST 1 V 54565 CLINICAL HISTORY: Saddle embolus TECHNIQUE: AP chest x-ray COMPARISON: Previous day. IMPRESSION: Low lung volumes with bibasilar subsegmental atelectasis. No airspace consolidation or pleural effusion. Mild cardiomegaly. Mediastinal silhouette is unremarkable. LOCATION: at 0751 Reported and signed by: Trisha Marie D.O. CC: Efraín Fonseca; Radha Mccormack MD Tech nologist: Nikolai Schmidt RT(R); ISABELL YOUSIF RT(R) Trnscrd Date/Ti me/By: 10/05/2019 (0751) : By: [email or web address] Orig Print D/T: S: 10/05/2019 (0754) PAGE 1 Signed Report THROMBOPLASTIN TIME [id number] 07:38:00* Test Item Value Reference Range Interpretation Comments THROMBOPLASTIN TIME PARTIAL (test code = PTT) 56.0 seconds 25.0-36. 5 H IS PATIENT ON ANTICOAGULANTS? YLIST ANTICOAGULANTS HEPARINBASIC METABOLIC [id number] 00:30:00* Test Item Value Reference Range Interpretation Comments SODIUM (test code = NA) 139 mmol/L 136-145 N POTASSIUM (test code = K) 3.2 mmol/L 3.5-5.1 L CHLORIDE (test code = CL) 108.0 mmol/L 98-107 H CARBON DIOXIDE (test code = CO2) 23.0 mmol/L 21-32 N ANION GAP (test code = GAP) 11.2 10-20 N GLUCOSE (test code = GLU) 205 mg/dL 74-106 H BLOOD UREA NITROGEN (test code = BUN) 20 mg/dL 7-18 H GLOMERULAR FILTRATION RATE (test code = GFR) > 60 mL/min >=60 Estimated GFR by using Modified MDRD formula.Chronic kidney disease is defined as either kidney damageor GFR <60 mL/min/1.73 m2 for >3 months. CREATININE (test code = CREAT) 0.70 mg/dL 0.55-1.02 N Note change in reference range due to change in reagent. BUN/CREATININE RATIO (test code = BUN/CREA) 28.6 10-20 H CALCIUM (test code = CA) 8.1 mg/dL 8.5-10.1 L [id number] 00:30:00* Test Item Value Reference Range Interpretation Comments PHOSPHORUS (test code = PHOS) 2.9 mg/dL 2.5-4.9 N [id number] 00:30:00* Test Item Value Reference Range Interpretation Comments MAGNESIUM (test code = MAG) 1.8 mg/dL 1.8-2.4 N THROMBOPLASTIN TIME [id number] 00:28:00* Test Item Value Reference Range Interpretation Comments THROMBOPLASTIN TIME PARTIAL (test code = PTT) 41.7 seconds 25.0-36. 5 H IS PATIENT ON ANTICOAGULANTS? YLIST ANTICOAGULANTS HEPARINBASIC METABOLIC [id number] 00:24:00* Test Item Value Reference Range Interpretation Comments SODIUM (test code = NA) 139 mmol/L 136-145 N POTASSIUM (test code = K) 3.2 mmol/L 3.5-5.1 L CHLORIDE (test code = CL) 108.0 mmol/L 98-107 H CARBON DIOXIDE (test code = CO2) mmol/L 21-32 ANION GAP (test code = GAP) 10-20 GLUCOSE (test code = GLU) mg/dL 74-106 BLOOD UREA NITROGEN (test code = BUN) mg/dL 7-18 GLOMERULAR FILTRATION RATE (test code = GFR) mL/min >=60 CREATININE (test code = CREAT) mg/dL 0.55-1.02 BUN/CREATININE RATIO (test code = BUN/CREA) 10-20 CALCIUM (test code = CA) mg/dL 8.5-10.1 [id number] 00:24:00* Test Item Value Reference Range Interpretation Comments PHOSPHORUS (test code = PHOS) mg/dL 2.5-4.9 [id number] 00:24:00* Test Item Value Reference Range Interpretation Comments MAGNESIUM (test code = MAG) 1.8 mg/dL 1.8-2.4 N CBC W/O [id number] 00:24:00* Test Item Value Reference Range Interpretation Comments WHITE BLOOD CELL (test code = WBC) 6.4 K/mm3 4.5-12.5 N RED BLOOD CELL (test code = RBC) 3.74 mill/mm3 3.7-5.2 N HEMOGLOBIN (test code = HGB) 8.2 gram/dL 11.5-15.5 L HEMATOCRIT (test code = HCT) 27.4 % 36.0-46.0 L MEAN CELL VOLUME (test code = MCV) 73.3 fL 80-98 L MEAN CELL HGB (test code = MCH) 21.9 picogram 27.0-33.0 L MEAN CELL HGB CONCETRATION (test code = MCHC) 29.9 gram/dL 33.0-36. 0 L RED CELL DISTRIBUTION WIDTH (test code = RDW) 20.5 % 11.6-16. 2 H PLATELET COUNT (test code = PLT) 392 K/mm3 150-450 RESULT VERIFIED BY REPEAT ANALYSIS MEAN PLATELET VOLUME (test code = MPV) 8.8 fL 6.7-11.0 N [id number] 21:35:00* Test Item Value Reference Range Interpretation Comments GLUBED (test code = GLUBED) 240 mg/dL 74-106 H Performed by certified repeater operator at [facility] CBC W/AUTO [id number] 17:27:00* Test Item Value Reference Range Interpretation Comments WHITE BLOOD CELL (test code = WBC) 7.5 K/mm3 4.5-12.5 N RED BLOOD CELL (test code = RBC) 4.40 mill/mm3 3.7-5.2 N HEMOGLOBIN (test code = HGB) 9.7 gram/dL 11.5-15.5 L RESULT VERIFIED BY REPEAT ANALYSIS HEMATOCRIT (test code = HCT) 32.7 % 36.0-46.0 L MEAN CELL VOLUME (test code = MCV) 74.3 fL 80-98 L MEAN CELL HGB (test code = MCH) 22.0 picogram 27.0-33.0 L MEAN CELL HGB CONCETRATION (test code = MCHC) 29.7 gram/dL 33.0-36. 0 L RED CELL DISTRIBUTION WIDTH (test code = RDW) 21.2 % 11.6-16. 2 H RED CELL DISTRIBUTION WIDTH SD (test code = RDW-SD) 55.7 fL 37 .0-51.0 H PLATELET COUNT (test code = PLT) 462 K/mm3 150-450 H MEAN PLATELET VOLUME (test code = MPV) 8.9 fL 6.7-11.0 N NEUTROPHIL % (test code = NT%) 63.3 % 39.0-69.0 N IMMATURE GRANULOCYTE % (test code = IG%) 0.3 % 0.0-5.0 N LYMPHOCYTE % (test code = LY%) 29.1 % 25.0-55.0 N MONOCYTE % (test code = MO%) 6.7 % 0.0-10.0 N EOSINOPHIL % (test code = EO%) 0.3 % 0.0-5.0 N BASOPHIL % (test code = BA%) 0.3 % 0.0-1.0 N NUCLEATED RBC % (test code = NRBC%) 0.0 % 0-0 N NEUTROPHIL # (test code = NT#) 4.74 K/mm3 1.8-7.7 N IMMATURE GRANULOCYTE # (test code = IG#) 0.02 x10 3/uL 0-0.03 N LYMPHOCYTE # (test code = LY#) 2.18 K/mm3 1.0-5.0 N MONOCYTE # (test code = MO#) 0.50 K/mm3 0-0.8 N EOSINOPHIL # (test code = EO#) 0.02 K/mm3 0.0-0.5 N BASOPHIL # (test code = BA#) 0.02 K/mm3 0.0-0.2 N NUCLEATED RBC # (test code = NRBC#) 0.00 K/mm3 0.0-0.1 N MANUAL DIFF REQUIRED (test code = MDIFF) NO, ONLY SCAN NEEDED DIFFERENTIAL [id number] 17:27:00* Test Item Value Reference Range Interpretation Comments STAIN ACCEPTABILITY (test code = STN ACCEPTABLE) STAIN ACCEPTABLE POLYCHROMASIA (test code = POLC) 1+ ANISOCYTOSIS (test code = ANISO) 1+ MICROCYTOSIS (test code = MICR) 1+ PLATELET ESTIMATE (test code = PLTEST) INCREASED PLATELET MORPHOLOGY (test code = PLTMORPH) SIZE VARIABLE CBC W/AUTO [id number] 17:03:00* Test Item Value Reference Range Interpretation Comments WHITE BLOOD CELL (test code = WBC) 7.5 K/mm3 4.5-12.5 N RED BLOOD CELL (test code = RBC) 4.40 mill/mm3 3.7-5.2 N HEMOGLOBIN (test code = HGB) 9.7 gram/dL 11.5-15.5 L RESULT VERIFIED BY REPEAT ANALYSIS HEMATOCRIT (test code = HCT) 32.7 % 36.0-46.0 L MEAN CELL VOLUME (test code = MCV) 74.3 fL 80-98 L MEAN CELL HGB (test code = MCH) 22.0 picogram 27.0-33.0 L MEAN CELL HGB CONCETRATION (test code = MCHC) 29.7 gram/dL 33.0-36. 0 L RED CELL DISTRIBUTION WIDTH (test code = RDW) 21.2 % 11.6-16. 2 H RED CELL DISTRIBUTION WIDTH SD (test code = RDW-SD) 55.7 fL 37 .0-51.0 H PLATELET COUNT (test code = PLT) 462 K/mm3 150-450 H MEAN PLATELET VOLUME (test code = MPV) 8.9 fL 6.7-11.0 N NEUTROPHIL % (test code = NT%) 63.3 % 39.0-69.0 N IMMATURE GRANULOCYTE % (test code = IG%) 0.3 % 0.0-5.0 N LYMPHOCYTE % (test code = LY%) 29.1 % 25.0-55.0 N MONOCYTE % (test code = MO%) 6.7 % 0.0-10.0 N EOSINOPHIL % (test code = EO%) 0.3 % 0.0-5.0 N BASOPHIL % (test code = BA%) 0.3 % 0.0-1.0 N NUCLEATED RBC % (test code = NRBC%) 0.0 % 0-0 N NEUTROPHIL # (test code = NT#) 4.74 K/mm3 1.8-7.7 N IMMATURE GRANULOCYTE # (test code = IG#) 0.02 x10 3/uL 0-0.03 N LYMPHOCYTE # (test code = LY#) 2.18 K/mm3 1.0-5.0 N MONOCYTE # (test code = MO#) 0.50 K/mm3 0-0.8 N EOSINOPHIL # (test code = EO#) 0.02 K/mm3 0.0-0.5 N BASOPHIL # (test code = BA#) 0.02 K/mm3 0.0-0.2 N NUCLEATED RBC # (test code = NRBC#) 0.00 K/mm3 0.0-0.1 N MANUAL DIFF REQUIRED (test code = MDIFF) NO, ONLY SCAN NEEDED DIFFERENTIAL [id number] 17:03:00* Test Item Value Reference Range Interpretation Comments STAIN ACCEPTABILITY (test code = STN ACCEPTABLE) MORPHOLOGY COMMENT (test code = MOC) PLATELET ESTIMATE (test code = PLTEST) PLATELET MORPHOLOGY (test code = PLTMORPH) THROMBOPLASTIN TIME [id number] 17:03:00* Test Item Value Reference Range Interpretation Comments THROMBOPLASTIN TIME PARTIAL (test code = PTT) 35.6 seconds 25.0-36. 5 N IS PATIENT ON ANTICOAGULANTS? YLIST ANTICOAGULANTS HEPARINCBC W/AUTO DIFF 2019-10-04 17:02:00* Test Item Value Reference Range Interpretation Comments WHITE BLOOD CELL (test code = WBC) 7.5 K/mm3 4.5-12.5 N RED BLOOD CELL (test code = RBC) 4.40 mill/mm3 3.7-5.2 N HEMOGLOBIN (test code = HGB) 9.7 gram/dL 11.5-15.5 L RESULT VERIFIED BY REPEAT ANALYSIS HEMATOCRIT (test code = HCT) 32.7 % 36.0-46.0 L MEAN CELL VOLUME (test code = MCV) 74.3 fL 80-98 L MEAN CELL HGB (test code = MCH) 22.0 picogram 27.0-33.0 L MEAN CELL HGB CONCETRATION (test code = MCHC) 29.7 gram/dL 33.0-36. 0 L RED CELL DISTRIBUTION WIDTH (test code = RDW) 21.2 % 11.6-16. 2 H RED CELL DISTRIBUTION WIDTH SD (test code = RDW-SD) 55.7 fL 37 .0-51.0 H PLATELET COUNT (test code = PLT) 462 K/mm3 150-450 H MEAN PLATELET VOLUME (test code = MPV) 8.9 fL 6.7-11.0 N NEUTROPHIL % (test code = NT%) 63.3 % 39.0-69.0 N IMMATURE GRANULOCYTE % (test code = IG%) 0.3 % 0.0-5.0 N LYMPHOCYTE % (test code = LY%) 29.1 % 25.0-55.0 N MONOCYTE % (test code = MO%) 6.7 % 0.0-10.0 N EOSINOPHIL % (test code = EO%) 0.3 % 0.0-5.0 N BASOPHIL % (test code = BA%) 0.3 % 0.0-1.0 N NUCLEATED RBC % (test code = NRBC%) 0.0 % 0-0 N NEUTROPHIL # (test code = NT#) 4.74 K/mm3 1.8-7.7 N IMMATURE GRANULOCYTE # (test code = IG#) 0.02 x10 3/uL 0-0.03 N LYMPHOCYTE # (test code = LY#) 2.18 K/mm3 1.0-5.0 N MONOCYTE # (test code = MO#) 0.50 K/mm3 0-0.8 N EOSINOPHIL # (test code = EO#) 0.02 K/mm3 0.0-0.5 N BASOPHIL # (test code = BA#) 0.02 K/mm3 0.0-0.2 N NUCLEATED RBC # (test code = NRBC#) 0.00 K/mm3 0.0-0.1 N MANUAL DIFF REQUIRED (test code = MDIFF) NO, ONLY SCAN NEEDED DIFFERENTIAL [id number] 17:02:00* Test Item Value Reference Range Interpretation Comments STAIN ACCEPTABILITY (test code = STN ACCEPTABLE) CABOT RINGS (test code = CAB) MORPHOLOGY COMMENT (test code = MOC) PLATELET ESTIMATE (test code = PLTEST) PLATELET MORPHOLOGY (test code = PLTMORPH) CBC W/AUTO [id number] 17:02:00* Test Item Value Reference Range Interpretation Comments WHITE BLOOD CELL (test code = WBC) 7.5 K/mm3 4.5-12.5 N RED BLOOD CELL (test code = RBC) 4.40 mill/mm3 3.7-5.2 N HEMOGLOBIN (test code = HGB) 9.7 gram/dL 11.5-15.5 L RESULT VERIFIED BY REPEAT ANALYSIS HEMATOCRIT (test code = HCT) 32.7 % 36.0-46.0 L MEAN CELL VOLUME (test code = MCV) 74.3 fL 80-98 L MEAN CELL HGB (test code = MCH) 22.0 picogram 27.0-33.0 L MEAN CELL HGB CONCETRATION (test code = MCHC) 29.7 gram/dL 33.0-36. 0 L RED CELL DISTRIBUTION WIDTH (test code = RDW) 21.2 % 11.6-16. 2 H RED CELL DISTRIBUTION WIDTH SD (test code = RDW-SD) 55.7 fL 37 .0-51.0 H PLATELET COUNT (test code = PLT) 462 K/mm3 150-450 H MEAN PLATELET VOLUME (test code = MPV) 8.9 fL 6.7-11.0 N NEUTROPHIL % (test code = NT%) 63.3 % 39.0-69.0 N IMMATURE GRANULOCYTE % (test code = IG%) 0.3 % 0.0-5.0 N LYMPHOCYTE % (test code = LY%) 29.1 % 25.0-55.0 N MONOCYTE % (test code = MO%) 6.7 % 0.0-10.0 N EOSINOPHIL % (test code = EO%) 0.3 % 0.0-5.0 N BASOPHIL % (test code = BA%) 0.3 % 0.0-1.0 N NUCLEATED RBC % (test code = NRBC%) 0.0 % 0-0 N NEUTROPHIL # (test code = NT#) 4.74 K/mm3 1.8-7.7 N IMMATURE GRANULOCYTE # (test code = IG#) 0.02 x10 3/uL 0-0.03 N LYMPHOCYTE # (test code = LY#) 2.18 K/mm3 1.0-5.0 N MONOCYTE # (test code = MO#) 0.50 K/mm3 0-0.8 N EOSINOPHIL # (test code = EO#) 0.02 K/mm3 0.0-0.5 N BASOPHIL # (test code = BA#) 0.02 K/mm3 0.0-0.2 N NUCLEATED RBC # (test code = NRBC#) 0.00 K/mm3 0.0-0.1 N MANUAL DIFF REQUIRED (test code = MDIFF) NO, ONLY SCAN NEEDED DIFFERENTIAL [id number] 17:02:00* Test Item Value Reference Range Interpretation Comments STAIN ACCEPTABILITY (test code = STN ACCEPTABLE) CABOT RINGS (test code = CAB) MORPHOLOGY COMMENT (test code = MOC) PLATELET ESTIMATE (test code = PLTEST) PLATELET MORPHOLOGY (test code = PLTMORPH) CBC W/AUTO [id number] 17:02:00* Test Item Value Reference Range Interpretation Comments WHITE BLOOD CELL (test code = WBC) 7.5 K/mm3 4.5-12.5 N RED BLOOD CELL (test code = RBC) 4.40 mill/mm3 3.7-5.2 N HEMOGLOBIN (test code = HGB) 9.7 gram/dL 11.5-15.5 L RESULT VERIFIED BY REPEAT ANALYSIS HEMATOCRIT (test code = HCT) 32.7 % 36.0-46.0 L MEAN CELL VOLUME (test code = MCV) 74.3 fL 80-98 L MEAN CELL HGB (test code = MCH) 22.0 picogram 27.0-33.0 L MEAN CELL HGB CONCETRATION (test code = MCHC) 29.7 gram/dL 33.0-36. 0 L RED CELL DISTRIBUTION WIDTH (test code = RDW) 21.2 % 11.6-16. 2 H RED CELL DISTRIBUTION WIDTH SD (test code = RDW-SD) 55.7 fL 37 .0-51.0 H PLATELET COUNT (test code = PLT) 462 K/mm3 150-450 H MEAN PLATELET VOLUME (test code = MPV) 8.9 fL 6.7-11.0 N NEUTROPHIL % (test code = NT%) 63.3 % 39.0-69.0 N IMMATURE GRANULOCYTE % (test code = IG%) 0.3 % 0.0-5.0 N LYMPHOCYTE % (test code = LY%) 29.1 % 25.0-55.0 N MONOCYTE % (test code = MO%) 6.7 % 0.0-10.0 N EOSINOPHIL % (test code = EO%) 0.3 % 0.0-5.0 N BASOPHIL % (test code = BA%) 0.3 % 0.0-1.0 N NUCLEATED RBC % (test code = NRBC%) 0.0 % 0-0 N NEUTROPHIL # (test code = NT#) 4.74 K/mm3 1.8-7.7 N IMMATURE GRANULOCYTE # (test code = IG#) 0.02 x10 3/uL 0-0.03 N LYMPHOCYTE # (test code = LY#) 2.18 K/mm3 1.0-5.0 N MONOCYTE # (test code = MO#) 0.50 K/mm3 0-0.8 N EOSINOPHIL # (test code = EO#) 0.02 K/mm3 0.0-0.5 N BASOPHIL # (test code = BA#) 0.02 K/mm3 0.0-0.2 N NUCLEATED RBC # (test code = NRBC#) 0.00 K/mm3 0.0-0.1 N MANUAL DIFF REQUIRED (test code = MDIFF) NO, ONLY SCAN NEEDED DIFFERENTIAL [id number] 17:02:00* Test Item Value Reference Range Interpretation Comments STAIN ACCEPTABILITY (test code = STN ACCEPTABLE) CABOT RINGS (test code = CAB) MORPHOLOGY COMMENT (test code = MOC) PLATELET ESTIMATE (test code = PLTEST) PLATELET MORPHOLOGY (test code = PLTMORPH) [id number] 16:40:00* Test Item Value Reference Range Interpretation Comments GLUBED (test code = GLUBED) 191 mg/dL 74-106 H Performed by certified repeater operator at [facility] [id number] 11:24:00* Test Item Value Reference Range Interpretation Comments GLUBED (test code = GLUBED) 242 mg/dL 74-106 H Performed by certified repeater operator at [facility] THROMBOPLASTIN TIME [id number] 08:40:00* Test Item Value Reference Range Interpretation Comments THROMBOPLASTIN TIME PARTIAL (test code = PTT) 40.2 seconds 25.0-36. 5 H IS PATIENT ON ANTICOAGULANTS? YLIST ANTICOAGULANTS HEPARINHGB HCT 2019-10-04 08:19:00* Test Item Value Reference Range Interpretation Comments HEMOGLOBIN (test code = HGB) 6.7 gram/dL 11.5-15.5 L HEMATOCRIT (test code = HCT) 23.1 % 36.0-46.0 L [id number] 07:41:00* Test Item Value Reference Range Interpretation Comments GLUBED (test code = GLUBED) 166 mg/dL 74-106 H Performed by certified repeater operator at [facility] - XR CHEST 1 [id number] 07:05:00 FAX: Efraín Fonseca [phone] [place]: [address]: ADM FAX: Radha Villegas MD [phone] Name: DIEGO GARCÍA [facility] : 1975 Age/S: 44/F [address] [facility] Unit #: [id number] Loc: [id number] [place] [address] Phys: Efraín Fonseca Acct: [id number] Dis Date: Status: ADM IN PHONE #: [phone] Exam Date: 10/04/2019 1988 FAX #: [phone] Reason: updated pulm view EXAMS: CPT CODE: [id number] XR CHEST 1 V [id number] REASON FOR EXAM: updated pulm view EXAM ORDER DATE: 10/04/2019 4:00 AM Ordering: INDY Enamorado Attending:Radha Mccormack MD Location: PROCEDURE: - XR CHEST 1 V COMPARISON: 10/02/2019 FINDINGS: Portable AP frontal view of the chest obtained at 5:13 AM shows patchy air space opacity of the bases. There is no evidence of effusion. The heart size is within normal limits. Pulmonary vasculatures are minimally congested. IMPRESSION: Patchy atelectasis of the bases at 0705 Reported and signed by: Keo Trevino M.D. CC: Efraín Fonseca; Radha Mccormack MD Technologist: Nikolai Schmidt RT(R); ISABELL YOUSIF RT(R) Trnscrd Date/Time/By: 10/04/2019 (704) : By: StephenieL Orig Print D/T: S: 10/04/2019 (08) PAGE 1 Signed Report CBC W/O [id number] 06:39:00* Test Item Value Reference Range Interpretation Comments WHITE BLOOD CELL (test code = WBC) 5.9 K/mm3 4.5-12.5 N RED BLOOD CELL (test code = RBC) 3.26 mill/mm3 3.7-5.2 L HEMOGLOBIN (test code = HGB) 6.6 gram/dL 11.5-15.5 L HEMATOCRIT (test code = HCT) 23.1 % 36.0-46.0 L MEAN CELL VOLUME (test code = MCV) 70.9 fL 80-98 L MEAN CELL HGB (test code = MCH) 20.2 picogram 27.0-33.0 L MEAN CELL HGB CONCETRATION (test code = MCHC) 28.6 gram/dL 33.0-36. 0 L RED CELL DISTRIBUTION WIDTH (test code = RDW) 18.6 % 11.6-16. 2 H PLATELET COUNT (test code = PLT) 424 K/mm3 150-450 N MEAN PLATELET VOLUME (test code = MPV) 9.3 fL 6.7-11.0 N BASIC METABOLIC [id number] 03:23:00* Test Item Value Reference Range Interpretation Comments SODIUM (test code = NA) 141 mmol/L 136-145 N POTASSIUM (test code = K) 3.6 mmol/L 3.5-5.1 N CHLORIDE (test code = CL) 111.0 mmol/L 98-107 H CARBON DIOXIDE (test code = CO2) 23.0 mmol/L 21-32 N ANION GAP (test code = GAP) 10.6 10-20 N GLUCOSE (test code = GLU) 201 mg/dL 74-106 H BLOOD UREA NITROGEN (test code = BUN) 17 mg/dL 7-18 N GLOMERULAR FILTRATION RATE (test code = GFR) > 60 mL/min >=60 Estimated GFR by using Modified MDRD formula.Chronic kidney disease is defined as either kidney damageor GFR <60 mL/min/1.73 m2 for >3 months. CREATININE (test code = CREAT) 0.60 mg/dL 0.55-1.02 N Note change in reference range due to change in reagent. BUN/CREATININE RATIO (test code = BUN/CREA) 28.3 10-20 H CALCIUM (test code = CA) 7.8 mg/dL 8.5-10.1 L [id number] 03:23:00* Test Item Value Reference Range Interpretation Comments PHOSPHORUS (test code = PHOS) 2.8 mg/dL 2.5-4.9 N [id number] 03:23:00* Test Item Value Reference Range Interpretation Comments MAGNESIUM (test code = MAG) 1.8 mg/dL 1.8-2.4 N BASIC METABOLIC [id number] 03:17:00* Test Item Value Reference Range Interpretation Comments SODIUM (test code = NA) 141 mmol/L 136-145 N POTASSIUM (test code = K) 3.6 mmol/L 3.5-5.1 N CHLORIDE (test code = CL) 111.0 mmol/L 98-107 H CARBON DIOXIDE (test code = CO2) mmol/L 21-32 ANION GAP (test code = GAP) 10-20 GLUCOSE (test code = GLU) mg/dL 74-106 BLOOD UREA NITROGEN (test code = BUN) mg/dL 7-18 GLOMERULAR FILTRATION RATE (test code = GFR) mL/min >=60 CREATININE (test code = CREAT) mg/dL 0.55-1.02 BUN/CREATININE RATIO (test code = BUN/CREA) 10-20 CALCIUM (test code = CA) mg/dL 8.5-10.1 [id number] 03:17:00* Test Item Value Reference Range Interpretation Comments PHOSPHORUS (test code = PHOS) mg/dL 2.5-4.9 [id number] 03:17:00* Test Item Value Reference Range Interpretation Comments MAGNESIUM (test code = MAG) mg/dL 1.8-2.4 THROMBOPLASTIN TIME [id number] 03:08:00* Test Item Value Reference Range Interpretation Comments THROMBOPLASTIN TIME PARTIAL (test code = PTT) 74.7 seconds 25.0-36. 5 H IS PATIENT ON ANTICOAGULANTS? YLIST ANTICOAGULANTS [id number] 21:09:00* Test Item Value Reference Range Interpretation Comments GLUBED (test code = GLUBED) 268 mg/dL 74-106 H Performed by certified repeater operator at [facility] THROMBOPLASTIN TIME [id number] 20:55:00* Test Item Value Reference Range Interpretation Comments THROMBOPLASTIN TIME PARTIAL (test code = PTT) 167.9 seconds 25.0-36 .5 HH Results called to [id number] by VMariyaLABMariyaLT 10/03/19 2054Critical results verified and read back by Nurse? Y [id number] 17:02:00* Test Item Value Reference Range Interpretation Comments GLUBED (test code = GLUBED) 305 mg/dL 74-106 H Performed by certified repeater operator at [facility] COAGULATION TIME [id number] 15:30:00* Test Item Value Reference Range Interpretation Comments COAGULATION TIME ACTIVATED (test code = ACT) 156 seconds 62.8-88.0 H COAGULATION TIME [id number] 14:15:00* Test Item Value Reference Range Interpretation Comments COAGULATION TIME ACTIVATED (test code = ACT) 157 seconds 62.8-88.0 H COAGULATION TIME [id number] 14:05:00* Test Item Value Reference Range Interpretation Comments COAGULATION TIME ACTIVATED (test code = ACT) 131 seconds 62.8-88.0 H COAGULATION TIME [id number] 13:59:00* Test Item Value Reference Range Interpretation Comments COAGULATION TIME ACTIVATED (test code = ACT) 89 seconds 62.8-88.0 H [id number] 10:29:00* Test Item Value Reference Range Interpretation Comments GLUBED (test code = GLUBED) 311 mg/dL 74-106 H Performed by certified repeater operator at [facility] THROMBOPLASTIN TIME [id number] 09:59:00* Test Item Value Reference Range Interpretation Comments THROMBOPLASTIN TIME PARTIAL (test code = PTT) 65.9 seconds 25.0-36. 5 H IS PATIENT ON ANTICOAGULANTS? YLIST ANTICOAGULANTS [id number] 07:38:00* Test Item Value Reference Range Interpretation Comments GLUBED (test code = GLUBED) 297 mg/dL 74-106 H Performed by certified repeater operator at [facility] THROMBOPLASTIN TIME [id number] 05:31:00* Test Item Value Reference Range Interpretation Comments THROMBOPLASTIN TIME PARTIAL (test code = PTT) 48.0 seconds 25.0-36. 5 H IS PATIENT ON ANTICOAGULANTS? YLIST ANTICOAGULANTS HEPARINCOMMENTS TO PHLEBO TOMIST: SPECIMEN IN LABCBC W/O [id number] 03:51:00* Test Item Value Reference Range Interpretation Comments WHITE BLOOD CELL (test code = WBC) 6.1 K/mm3 4.5-12.5 N RED BLOOD CELL (test code = RBC) 3.97 mill/mm3 3.7-5.2 N HEMOGLOBIN (test code = HGB) 7.8 gram/dL 11.5-15.5 L HEMATOCRIT (test code = HCT) 27.2 % 36.0-46.0 L MEAN CELL VOLUME (test code = MCV) 68.5 fL 80-98 L MEAN CELL HGB (test code = MCH) 19.6 picogram 27.0-33.0 L MEAN CELL HGB CONCETRATION (test code = MCHC) 28.7 gram/dL 33.0-36. 0 L RED CELL DISTRIBUTION WIDTH (test code = RDW) 18.4 % 11.6-16. 2 H PLATELET COUNT (test code = PLT) 459 K/mm3 150-450 H MEAN PLATELET VOLUME (test code = MPV) 9.4 fL 6.7-11.0 N [id number] 03:50:00* Test Item Value Reference Range Interpretation Comments TROPONIN-I (test code = TROPI) 0.046 ng/mL 0-0.045 H Results called to [id number] by MADONNA 10/03/19 [id number] results verified and read back by Nurse? Y COMMENTS TO CARPET TILE LAYER: COLLECT 3 HOURS AFTER PREVIOUS SAMPLEBASIC METABOLIC [id number] 03:50:00* Test Item Value Reference Range Interpretation Comments SODIUM (test code = NA) 139 mmol/L 136-145 N POTASSIUM (test code = K) 3.6 mmol/L 3.5-5.1 N CHLORIDE (test code = CL) 109.0 mmol/L 98-107 H CARBON DIOXIDE (test code = CO2) 21.0 mmol/L 21-32 N ANION GAP (test code = GAP) 12.6 10-20 N GLUCOSE (test code = GLU) 296 mg/dL 74-106 H BLOOD UREA NITROGEN (test code = BUN) 11 mg/dL 7-18 N GLOMERULAR FILTRATION RATE (test code = GFR) > 60 mL/min >=60 Estimated GFR by using Modified MDRD formula.Chronic kidney disease is defined as either kidney damageor GFR <60 mL/min/1.73 m2 for >3 months. CREATININE (test code = CREAT) 0.50 mg/dL 0.55-1.02 L Note change in reference range due to change in reagent. BUN/CREATININE RATIO (test code = BUN/CREA) 22.0 10-20 H CALCIUM (test code = CA) 8.6 mg/dL 8.5-10.1 N [id number] 03:50:00* Test Item Value Reference Range Interpretation Comments PHOSPHORUS (test code = PHOS) 2.8 mg/dL 2.5-4.9 N [id number] 03:50:00* Test Item Value Reference Range Interpretation Comments MAGNESIUM (test code = MAG) 1.6 mg/dL 1.8-2.4 L BASIC METABOLIC [id number] 03:46:00* Test Item Value Reference Range Interpretation Comments SODIUM (test code = NA) 139 mmol/L 136-145 N POTASSIUM (test code = K) 3.6 mmol/L 3.5-5.1 N CHLORIDE (test code = CL) 109.0 mmol/L 98-107 H CARBON DIOXIDE (test code = CO2) mmol/L 21-32 ANION GAP (test code = GAP) 10-20 GLUCOSE (test code = GLU) mg/dL 74-106 BLOOD UREA NITROGEN (test code = BUN) mg/dL 7-18 GLOMERULAR FILTRATION RATE (test code = GFR) mL/min >=60 CREATININE (test code = CREAT) mg/dL 0.55-1.02 BUN/CREATININE RATIO (test code = BUN/CREA) 10-20 CALCIUM (test code = CA) mg/dL 8.5-10.1 [id number] 03:46:00* Test Item Value Reference Range Interpretation Comments PHOSPHORUS (test code = PHOS) mg/dL 2.5-4.9 [id number] 03:46:00* Test Item Value Reference Range Interpretation Comments MAGNESIUM (test code = MAG) mg/dL 1.8-2.4 [id number] 23:23:00* Test Item Value Reference Range Interpretation Comments TROPONIN-I (test code = TROPI) 0.044 ng/mL 0-0.045 N COMMENTS TO CARPET TILE LAYER: COLLECT 3 HOURS AFTER PREVIOUS [id number] 21:24:00* Test Item Value Reference Range Interpretation Comments GLYCOSYLATED HEMOGLOBIN (HA1C) (test code = GLYHGB) 11.2 % HbA1 SUGGESTED DIAGNOSIS: HbA1C (%) Diabetic >6.4Prediabetes 5.7 - 6.4Normal <5.7 ESTIMATED AVERAGE GLUCOSE (test code = EAG) 275 MG/DL [id number] 20:59:00* Test Item Value Reference Range Interpretation Comments HEMATOCRIT (test code = HCT) 28.4 % 36.0-46.0 L PLATELET [id number] 20:59:00* Test Item Value Reference Range Interpretation Comments PLATELET COUNT (test code = PLT) 427 K/mm3 150-450 N [id number] 20:46:00* Test Item Value Reference Range Interpretation Comments GLUBED (test code = GLUBED) 338 mg/dL 74-106 H Performed by certified repeater operator at [facility] PROTHROMBIN [id number] 19:20:00* Test Item Value Reference Range Interpretation Comments PROTHROMBIN TIME PATIENT (test code = PTP) 13.4 seconds 9.0-14.0 N INTERNATIONAL NORMAL RATIO (test code = INR) 1.1 0.8-1.2 N The therapeutic range for oral anticoagulant therapy formost indications is an international normalized ratio (INR)of between 2.0 and 3.0. The recommended therapeutic INRrange for various clinical situations is listed below: Clinical Situation INR range Pulmonary e mbolism treatment (2.0-3.0)Venous thrombosis treatmentVenous thrombosis prophylaxis (high risk surgery)Prevention of systemic embolism from: Acute myocardial infarction Valvular heart disease Atrial fibrillation Mechanical prosthetic heart valves (2.5-3.5) IS PATIENT ON ANTICOAGULANTS? NTHROMBOPLASTIN TIME [id number] 19:20:00* Test Item Value Reference Range Interpretation Comments THROMBOPLASTIN TIME PARTIAL (test code = PTT) 23.1 seconds 25.0-36. 5 L IS PATIENT ON ANTICOAGULANTS? NLACTIC [id number] 19:03:00* Test Item Value Reference Range Interpretation Comments LACTIC ACID (test code = LACT) 1.4 mmol/L 0.4-1.9 N - CTA [id number] 17:55:00 Name: DIEGO GARCÍA [facility] : 1975 Age/S: 44 / F [address] [facility] Unit #: [id number] Loc: [place] [address] Phys: Sree De La Cruz MD Acct: [id number] Dis Date: Status: REG ER PHONE #: [phone] Exam Date: 10/02/2019 4554 FAX #: [phone] Reason: sob recent fracture EXAMS: CPT CODE: [id number] CTA CHEST 48424 REASON FOR EXAM: sob recent fracture EXAM ORDER DATE: 10/02/2019 4:01 PM Ordering M.D.: Sree De La Cruz MD PROCEDURE: - CTA CHEST Comparison:Frontal chest x-ray earlier today Axial CT images of the chest were obtained with IV contrast and the pulmonary trunk face. Reconstructed sagittal and coronal images of the chest were provided for interpretation. Dose reduction techniques were applied. FINDINGS: Visualized neck: Normal Airways, Lungs and Pleura: Normal Heart, great vessels, pulmonary vessels, mediastinum: Sagittal pulmonary embolus is present. This embolus extends into the lobar arteries perfusing the bilateral lower lobes. There are additional emboli occluding the arteries perfusing the posterior basal segment of the right lower lobe. Additional emboli extend into the bilateral upper lobar pulmonary arteries. Pulmonary trunk is normal in caliber. There is straightening of the interventricular septum suggesting elevated right heart pressures. Lymph nodes: No axillary, internal mammary, hilar, or mediastinal adenopathy. Musculoskeletal/chest wall: There are degenerative changes in the thoracic spine. Visualized upper abdomen: Grossly normal IMPRESSION: Saddle pulmonary embolus with evidence of elevated right heart pressures. Preliminary findings were discussed with Dr. De La Cruz by telephone at 5:52 PM October 02, 2019. PAGE 1 Signed Report (CONTINUED) [facility] 1975 Age/S: 44 / F [address] [facility] Unit #: [id number] Loc: [place] [address] Phys: Sree De La Cruz MD Acct: [id number] Dis Date: Status: REG ER PHONE #: [phone] Exam Date: 10/02/2019 173 FAX #: [phone] Reason: sob recent fracture EXAMS: CPT CODE: [id number] CTA CHEST 47548 < Continued> Location: [facility] at 1750 Reported and signed by: Peewee Felder MD CC: Sree De La Cruz MD Technologist:Sangita Wellington RT(R),CT CTDI: DLP: Trnscb Date/Time: 10/02/2019 (175) [email or web address] Orig Print D/T: S: 10/02/2019 (4563) PAGE 2 Signed Report - XR CHEST 1 [id number] 17:47:00 FAX: Sree De La Cruz MD [phone] [place]: St: REG Name: DIEGO BELL [facility] : [birth year] Age/S: 44/F [address] [facility] Unit #: [id number] Loc: [place] [address] Phys: Sree De La Cruz MD Acct: [id number] Dis Date: Status: REG ER PHONE #: [phone] Exam Date: 10/02/2019 1620 FAX #: [phone] Reason: Shortness of Breath EXAMS: CPT CODE: [id number] XR CHEST 1 V 53839 REASON FOR EXAM: Shortness of Breath Exam Order Date: 10/02/2019 3:24 PM Ordering M.D.: Sree De La Cruz MD PROCEDURE: - XR CHEST 1 V COMPARISON: Frontal chest x-ray May 09, 2019 FINDINGS: T he lungs are clear. There is no pleural effusion or pneumothorax. Pulmona ry vascularity is within normal limits. Cardiomediastinal silhouet te is normal in size for technique. The mediastinal contours are within no rmal limits. There are degenerative changes in the spine. The visualized upper abdomen is within normal limits. IMPRESSION: No acute cardiopulmonary process. Loca tion: [facility] at 5 075 Reported and signed by: Peewee Chew C: Sree De La Cruz MD Technologist: RADHA JAMES Trnscrd Date/Time/By: 10/02/2019 (0457) : By: [email or web address] Orig Print D/T: S: 10/02/2019 (2907) PAGE 1 Signed Report B-TYPE NATRIURETIC [id number] 16:31:00* Test Item Value Reference Range Interpretation Comments B-TYPE NATRIURETIC PEPTIDE (test code = BNP) 123.51 pgram/mL 0-100 H LACTIC [id number] 16:21:00* Test Item Value Reference Range Interpretation Comments LACTIC ACID (test code = LACT) 2.0 mmol/L 0.4-1.9 H Results called to [place] [address] by V.LAB.SPR 10/02/19 1621Critical results verified and read back by Nurse? Y BASIC METABOLIC [id number] 16:20:00* Test Item Value Reference Range Interpretation Comments SODIUM (test code = NA) 137 mmol/L 136-145 N POTASSIUM (test code = K) 3.8 mmol/L 3.5-5.1 N CHLORIDE (test code = CL) 104.0 mmol/L 98-107 N CARBON DIOXIDE (test code = CO2) 25.0 mmol/L 21-32 N ANION GAP (test code = GAP) 11.8 10-20 N GLUCOSE (test code = GLU) 430 mg/dL 74-106 H BLOOD UREA NITROGEN (test code = BUN) 12 mg/dL 7-18 N GLOMERULAR FILTRATION RATE (test code = GFR) > 60 mL/min >=60 Estimated GFR by using Modified MDRD formula.Chronic kidney disease is defined as either kidney damageor GFR <60 mL/min/1.73 m2 for >3 months. CREATININE (test code = CREAT) 0.70 mg/dL 0.55-1.02 N Note change in reference range due to change in reagent. BUN/CREATININE RATIO (test code = BUN/CREA) 17.1 10-20 N CALCIUM (test code = CA) 8.8 mg/dL 8.5-10.1 N HCG SERUM [id number] 16:20:00* Test Item Value Reference Range Interpretation Comments HCG SERUM QUAL (test code = HCGQL) NEGATIVE NEGATIVE This HCGQL test is NOT applicable for MALE patients.Check with nurse about probable order error.If Tumor Marker Test needed, nurse should order test "HCGTU"(Test #550.58970) [id number] 16:20:00* Test Item Value Reference Range Interpretation Comments TROPONIN-I (test code = TROPI) 0.023 ng/mL 0-0.045 N BASIC METABOLIC [id number] 16:09:00* Test Item Value Reference Range Interpretation Comments SODIUM (test code = NA) 137 mmol/L 136-145 N POTASSIUM (test code = K) 3.8 mmol/L 3.5-5.1 N CHLORIDE (test code = CL) 104.0 mmol/L 98-107 N CARBON DIOXIDE (test code = CO2) mmol/L 21-32 ANION GAP (test code = GAP) 10-20 GLUCOSE (test code = GLU) mg/dL 74-106 BLOOD UREA NITROGEN (test code = BUN) mg/dL 7-18 GLOMERULAR FILTRATION RATE (test code = GFR) mL/min >=60 CREATININE (test code = CREAT) mg/dL 0.55-1.02 BUN/CREATININE RATIO (test code = BUN/CREA) 10-20 CALCIUM (test code = CA) 8.8 mg/dL 8.5-10.1 N HCG SERUM [id number] 16:09:00* Test Item Value Reference Range Interpretation Comments HCG SERUM QUAL (test code = HCGQL) NEGATIVE NEGATIVE This HCGQL test is NOT applicable for MALE patients.Check with nurse about probable order error.If Tumor Marker Test needed, nurse should order test "HCGTU"(Test #550.53262) [id number] 16:09:00* Test Item Value Reference Range Interpretation Comments TROPONIN-I (test code = TROPI) ng/mL 0-0.045 BASIC METABOLIC [id number] 16:08:00* Test Item Value Reference Range Interpretation Comments SODIUM (test code = NA) mmol/L 136-145 POTASSIUM (test code = K) mmol/L 3.5-5.1 CHLORIDE (test code = CL) mmol/L 98-107 CARBON DIOXIDE (test code = CO2) mmol/L 21-32 ANION GAP (test code = GAP) 10-20 GLUCOSE (test code = GLU) mg/dL 74-106 BLOOD UREA NITROGEN (test code = BUN) mg/dL 7-18 GLOMERULAR FILTRATION RATE (test code = GFR) mL/min >=60 CREATININE (test code = CREAT) mg/dL 0.55-1.02 BUN/CREATININE RATIO (test code = BUN/CREA) 10-20 CALCIUM (test code = CA) mg/dL 8.5-10.1 HCG SERUM [id number] 16:08:00* Test Item Value Reference Range Interpretation Comments HCG SERUM QUAL (test code = HCGQL) NEGATIVE NEGATIVE This HCGQL test is NOT applicable for MALE patients.Check with nurse about probable order error.If Tumor Marker Test needed, nurse should order test "HCGTU"(Test #550.67873) [id number] 16:08:00* Test Item Value Reference Range Interpretation Comments TROPONIN-I (test code = TROPI) ng/mL 0-0.045 CBC W/O [id number] 16:01:00* Test Item Value Reference Range Interpretation Comments WHITE BLOOD CELL (test code = WBC) 9.8 K/mm3 4.5-12.5 N RED BLOOD CELL (test code = RBC) 4.13 mill/mm3 3.7-5.2 N HEMOGLOBIN (test code = HGB) 8.3 gram/dL 11.5-15.5 L HEMATOCRIT (test code = HCT) 28.3 % 36.0-46.0 L MEAN CELL VOLUME (test code = MCV) 68.5 fL 80-98 L MEAN CELL HGB (test code = MCH) 20.1 picogram 27.0-33.0 L MEAN CELL HGB CONCETRATION (test code = MCHC) 29.3 gram/dL 33.0-36. 0 L RED CELL DISTRIBUTION WIDTH (test code = RDW) 18.4 % 11.6-16. 2 H PLATELET COUNT (test code = PLT) 470 K/mm3 150-450 H MEAN PLATELET VOLUME (test code = MPV) 9.4 fL 6.7-11.0 N POCT BMP POC docked [id number] 22:22:00* Test Item Value Reference Range Interpretation Comments Sodium POC (test code = 76231536) 137 mmol/L 136-145 Potassium POC (test code = 97667843) 3.3 mmol/L 3.5-5.1 L Chloride POC (test code = 44562126) 99 mmol/L 98-107 TCO2 POC (test code = 45352687) 25 mmol/L 21-32 Urea Nitrogen POC (test code = 95258341) 13 mg/dL 7-18 Creatinine POC (test code = 28097623) 0.5 mg/dL 0.6-1.3 L Glucose POC (test code = 64569858) 351 mg/dL 74-106 H Ionized Calcium POC (test code = 85146435) 1.21 mmol/L 1.15-1.29 GFR, Estimated (test code = 95627844) >90 >=90 mL/min/1.73 m2 Hemoglobin POC (test code = 41850492) 9.5 g/dL 12-16 L Hematocrit POC (test code = 17829941) 28.0 % 37-47 L Lab Interpretation (test code = 33041-5) [facility]normal [facility] - [id number] 20:33:56IMPRESSION: 1. Minimally displaced Stephens A type, transverse fracture at the distalmargin of left lateral malleolus.2. No significant interval change or additional acute osseousabnormality of the left ankle identified compared to 09/26/2019.3. Persistent circumferential soft tissue swelling of the left ankle,greatest l aterally. Signed By: Libra Bey MD, 09/29/2019 8:33 PM Interface, Rad/Mamm og In - 09/29/2019 8:39 PM CSTEXAM: XR LEFT ANKLE 3 VIEWSDATE: 09/29/2019 at 8 :10 PMINDICATION: Twisted ankle. Acute left ankle pain COMPARISON: Left ankle, l eft tibia, fibula and left foot series [id number] TECHNIQUE: AP, lateral and oblique left ankle radiographsDISCUSSION: A radiopaque splint is applied to the distal left lower extremity andankle creating artifact.A transverse Stephens a type fracture is present at the distal margin ofthe lateral malleolus of the lef t ankle. The remainder of the left ankleappears intact. The left ankle mortise a ppears congruent. Convex soft tissue swelling is again seen circumferentially at the leftankle, greatest laterally.IMPRESSIONIMPRESSION: 1. Minimally displa dalia Stephens A type, transverse fracture at the distalmargin of left lateral malleo mari.2. No significant interval change or additional acute osseousabnormality of the left ankle identified compared to 09/26/2019.3. Persistent circumferential s oft tissue swelling of the left ankle,greatest laterally.Signed By: Libra rausch MD, 09/29/2019 8:33 [facility] Center[facility]oy[facility] GLUCOSE POC docked [id number] 19:11:00* Test Item Value Reference Range Interpretation Comments Glucose POC (test code = 32134847) 322 mg/dL 74-106 H Lab Interpretation (test code = 49301-2) Abnormal [facility] TIBIA AND FIBULA 2 [id number] 15:03:31Interface, Rad/Mammog In - 09/26/2019 3:08 PM CSTEXAM: XR LEFT TIBIA-FIBULA 2 VIEWSEXAM: XR LEFT ANKLE 3 VIEWSEXAM: XR LEFT FOOT 3 VIEWSDATE: 09/26/2019 2:28 P MINDICATION: Fall with + Fracture Follow UpCOMPARISON: NoneTECHNIQUE: AP and lat eral views of the left tibia-fibula, AP, later[place] oblique radiographs of the l eft ankle, AP lateral and oblique viewsof the left foot. FINDINGS:The study is l imited secondary to splint artifact.Transverse minimally displaced fracture is n oted through the tip of thelateral malleolus representing a Stephens A fracture. An kle mortise iscongruent. No other acute fracture is visualized within the limita tionsof the study. Alignment of the bones and ankle mortises normal. Diffusesoft tissue swelling of the ankle and dorsal soft tissues with the foot. IMPRESSION: 1. Transverse minimally displaced fracture through the tip of thelateral mall eolus representing Stephens A fracture.2. No other definite displaced fracture of the visualized within thelimitations of study.Signed By: Cruz Mathur MD, 1 11/27/2018 3:03 PM[facility] ANKLE 3 VIEW [id number] 15:03:31Interface, Rad/Mammog In - 09/26/2019 3:08 PM CSTEXAM: XR LEFT TIBIA-FIBULA 2 VIEWSEXAM: XR LEFT ANKLE 3 VIEWSEXAM: XR LEFT FOOT 3 VIEWSDATE: 09/26/2019 2:28 P MINDICATION: Fall with + Fracture Follow UpCOMPARISON: NoneTECHNIQUE: AP and lat eral views of the left tibia-fibula, AP, later[place] oblique radiographs of the l eft ankle, AP lateral and oblique viewsof the left foot. FINDINGS:The study is l imited secondary to splint artifact.Transverse minimally displaced fracture is n oted through the tip of thelateral malleolus representing a Stephens A fracture. An kle mortise iscongruent. No other acute fracture is visualized within the limita tionsof the study. Alignment of the bones and ankle mortises normal. Diffusesoft tissue swelling of the ankle and dorsal soft tissues with the foot. IMPRESSION: 1. Transverse minimally displaced fracture through the tip of thelateral mall eolus representing Stephens A fracture.2. No other definite displaced fracture of the visualized within thelimitations of study.Signed By: Cruz Mathur MD, 1 11/27/2018 3:03 PMHarris [facility] FOOT 3 VIEWS [id number] 15:03:31Interface, Rad/Mammog In - 09/26/2019 3:08 PM CSTEXAM: XR LEFT TIBIA-FIBULA 2 VIEWSEXAM: XR LEFT ANKLE 3 VIEWSEXAM: XR LEFT FOOT 3 VIEWSDATE: 09/26/2019 2:28 P MINDICATION: Fall with + Fracture Follow UpCOMPARISON: NoneTECHNIQUE: AP and lat eral views of the left tibia-fibula, AP, later[place] oblique radiographs of the l eft ankle, AP lateral and oblique viewsof the left foot. FINDINGS:The study is l imited secondary to splint artifact.Transverse minimally displaced fracture is n oted through the tip of thelateral malleolus representing a Stephens A fracture. An kle mortise iscongruent. No other acute fracture is visualized within the limita tionsof the study. Alignment of the bones and ankle mortises normal. Diffusesoft tissue swelling of the ankle and dorsal soft tissues with the foot. IMPRESSION: 1. Transverse minimally displaced fracture through the tip of thelateral mall eolus representing Stephens A fracture.2. No other definite displaced fracture of the visualized within thelimitations of study.Signed By: Cruz Mathur MD, 1 11/27/2018 3:03 [facility]- XR ANKLE 3 + V [id number] 12:07:00 [facility] 1975 Age/S:44 /F [address] [facility] Unit#:[id number] Loc: [place] [address] Phys: Spencer Hennessy ADOBE LAYER Dis Date: PHONE #: [phone] Status: REG ER FAX #: [phone] Exam Date: 09/22/2019 Re ason: twist fall yest Left lat ankle pain EXAMS: CPT CODE: [id number] XR ANKLE 3 + [place] [address] CLINICAL HISTORY: twist fall yest Left lat ankle pain TECHNIQUE: AP, oblique, and lateral views of the left foot and ankle COMPARISON: None FINDINGS: Nondisplaced fracture of the tip of the lateral malleolus with s welling of the overlying soft tissues and small joint effusion. Th ere is narrowing of the interphalangeal joint spaces. Ankle mortise is genaro ropriately aligned. Mild vascular calcifications are present. IMPRESSION: Nondisplaced fracture at the t ip of the lateral malleolus of the left ankle. However there is no disru ption of the ankle mortise. Degenerative changes in the left foot. Location: [facility] at 1207 Reported and signed by: Peewee Felder MD CC: Yanira Ascencio MD echnologist: Kathryn Bedoya Trnscrpt Hernandez a: 09/22/2019 (6597) [id number] Orig Print D/T: S: 09/22 (1723) PAGE 1 Signed Report - XR FOOT 3 + V [id number] 12:07:00 Name: DIEGO GARCÍA [facility] : 1975 Age/S:44 /F [address] [facility] Unit#:[id number] Loc: [place] [address] Phys: Spencer Hennessy ADOBE LAYER Dis Date: PHONE #: [phone] Status: REG ER FAX #: [phone] Exam Date: 09/22/2019 Re ason: twist fall yest Left lat ankle pain EXAMS: CPT CODE: [id number] XR FOOT 3 + [place] [address] CLINICAL HISTORY: twist fall yest Left lat ankle pain TECHNIQUE: AP, oblique, and lateral views of the left foot and ankle COMPARISON: None FINDINGS: Nondisplaced fracture of the tip of the lateral malleolus with s welling of the overlying soft tissues and small joint effusion. Th ere is narrowing of the interphalangeal joint spaces. Ankle mortise is genaro ropriately aligned. Mild vascular calcifications are present. IMPRESSION: Nondisplaced fracture at the t ip of the lateral malleolus of the left ankle. However there is no disru ption of the ankle mortise. Degenerative changes in the left foot. Location: [facility] at 1207 Reported and signed by: Peewee Felder MD CC: Yanira Ascencio MD echnologist: Kathryn Bedoya Trnscrpt Hernandez a: 09/22/2019 (7937) [email or web address] Orig Print D/T: S: 09/22 (2130) PAGE 1 Signed Report LIVER FUNCTION [id number] 01:31:00* Test Item Value Reference Range Interpretation Comments TOTAL PROTEIN (test code = PROT) 7.8 g/dL 6.0-8.3 N ALBUMIN (test code = ALB) 3.4 g/dL 3.2-5.5 N BILIRUBIN TOTAL (test code = BILT) 0.2 mg/dL 0.2-1.0 N W-lvfvos-k-benzoquinone imine (NAPQI), a metabolite ofacetaminophen (paracetamol), may generate erroneously lowresults in samples for patients that have taken toxic dosesof acetaminophen (paracetamol). BILIRUBIN DIRECT (test code = BILD) <0.1 mg/dL 0.0-0.2 N W-cdjypw-e-benzoquinone imine (NAPQI), a metabolite ofacetaminophen (paracetamol), may generate erroneously lowresults in samples for patients that have taken toxic dosesof acetaminophen (paracetamol). BILIRUBIN INDIRECT (test code = BILIND) 0.2 mg/dL SGOT/AST (test code = AST) 14 UNITS/L 10-42 N SGPT/ALT (test code = ALT) 11 UNITS/L 10-40 N ALKALINE PHOSPHATASE (test code = ALKP) 67 UNITS/L 34-104 N CHEMISTRY 8 [id number] 01:17:00* Test Item Value Reference Range Interpretation Comments SODIUM POC (test code = NAP) mmol/L 138-146 L POTASSIUM POC (test code = KP) mmol/L 3.5-4.9 N CHLORIDE POC (test code = CLP) mmol/L 98-109 CO2 POC (test code = CO2P) mmol/L 24-29 IONIZED CALCIUM POC (test code = CAIP) mmol/L 1.10-1.32 N GLUCOSE POC (test code = GLUP) MG/DL 70-105 H BUN POC (test code = BUNP) mg/dL 8-26 N CREATININE POC (test code = CREATP) mg/dL 0.6-1.3 L GLOMERULAR FILTRATION RATE POC (test code = GFRP) 239 58-1 35 H CHEMISTRY 8 [id number] 01:17:00* Test Item Value Reference Range Interpretation Comments SODIUM POC (test code = NAP) 135 mmol/L 138-146 L POTASSIUM POC (test code = KP) 3.6 mmol/L 3.5-4.9 N CHLORIDE POC (test code = CLP) 99 mmol/L 98-109 N CO2 POC (test code = CO2P) 25 mmol/L 24-29 N IONIZED CALCIUM POC (test code = CAIP) 1.18 mmol/L 1.10-1.32 N GLUCOSE POC (test code = GLUP) 356 MG/DL 70-105 H BUN POC (test code = BUNP) 8 mg/dL 8-26 N CREATININE POC (test code = CREATP) 0.3 mg/dL 0.6-1.3 L GLOMERULAR FILTRATION RATE POC (test code = GFRP) 239 58-1 35 H PROTHROMBIN [id number] 01:14:00* Test Item Value Reference Range Interpretation Comments PROTHROMBIN TIME PATIENT (test code = PTP) 10.9 SECONDS 9.5-12.9 N INTERNATIONAL NORMAL RATIO (test code = INR) 1.0 0.85-1.15 N The INR is to be used only for monitoring ORAL ANTICOAGULANTTHERAPY. Indication INR Value1. Prophylaxis/treatment of: Venous Thrombosis, Pulmonary Embolism 2.0 - 3.02. Prevention of systemic embolism from: Tissue heart valves 2.0 - 3.0 Acute myocardial infarction (to present systemic embolism)* 2.0 - 3.0 Valvular heart disease 2.0 - 3.0 Atrial fibrillation 2.0 - 3.03. Mechanical prosthetic valves (high risk) 2.5 - 3.5 * If oral anticoagulant therapy is elected to preventrecurrent myocardial infarction, an INR of 2.5-3.5 isrecommended, consistent with Food and Drug Administrationrecommendations. THROMBOPLASTIN TIME [id number] 01:14:00* Test Item Value Reference Range Interpretation Comments THROMBOPLASTIN TIME PARTIAL (test code = PTT) 25 SECONDS 25.1-36. 5 L URINALYSIS [id number] 01:10:00* Test Item Value Reference Range Interpretation Comments UA COLOR (test code = COLU) YELLOW YELLOW UA APPEARANCE (test code = APPU) CLEAR CLEAR UA GLUCOSE DIPSTICK (test code = DGLUU) 500 (3+) MG/AL NEGATIVE A UA BILIRUBIN DIPSTICK (test code = BILU) NEGATIVE NEGATIVE UA KETONE DIPSTICK (test code = KETU) NEGATIVE MG/DL NEGATIVE UA SPECIFIC GRAVITY (test code = SGU) >1.035 1.000-1.030 UA BLOOD DIPSTICK (test code = SEGUNDO) NEGATIVE NEGATIVE UA PH DIPSTICK (test code = RONAN) 7.0 4.5-8.5 UA PROTEIN DIPSTICK (test code = PROU) 100 (2+) NEGATIVE UA UROBILINOGEN DIPSTICK (test code = URO) 0.2 EU/dL <=1.0 UA NITRITE DIPSTICK (test code = ESTHER) NEGATIVE NEGATIVE UA LEUKOCYTE ESTERASE DIPSTICK (test code = LEUU) NEGATIVE NEGA TIVE UA WBC (test code = WBCU) 30-40 /HPF 0-3 A UA RBC (test code = RBCU) 0-3 /HPF 0-3 UA EPITHELIAL CELLS (test code = EPIU) FEW /LPF NONE-FEW UA BACTERIA (test code = BACU) 4+ /HPF NEGATIVE A UA HYALINE CAST (test code = HYALU) 0-3 /LPF NONE SEEN TROPONIN I [id number] 01:09:00* Test Item Value Reference Range Interpretation Comments TROPONIN I RAPID (test code = TROPIRAP) 0.00 ng/mL 0.00-0.08 N ISTAT TROPONIN I CRITERIA0.00-0.08 ng/mL - Negative>0.08 ng/mL - Positive The use of serial sampling and testing protocol is arecommended practice.An elevated troponin level alone is often not sufficient fordiagnosis of myocardial infarction. Troponin results obtained by different assays may vary.Evaluation of the extent of myocardial damage based onincrease of troponin would be valid only if similarmethodology is used. UR HCG [id number] 01:09:00* Test Item Value Reference Range Interpretation Comments UR HCG QUAL (test code = HCGQLU) NEGATIVE NEGATIVE URINALYSIS [id number] 01:07:00* Test Item Value Reference Range Interpretation Comments UA COLOR (test code = COLU) YELLOW YELLOW UA APPEARANCE (test code = APPU) CLEAR CLEAR UA GLUCOSE DIPSTICK (test code = DGLUU) 500 (3+) MG/AL NEGATIVE A UA BILIRUBIN DIPSTICK (test code = BILU) NEGATIVE NEGATIVE UA KETONE DIPSTICK (test code = KETU) NEGATIVE MG/DL NEGATIVE UA SPECIFIC GRAVITY (test code = SGU) >1.035 1.000-1.030 UA BLOOD DIPSTICK (test code = SEGUNDO) NEGATIVE NEGATIVE UA PH DIPSTICK (test code = RONAN) 7.0 4.5-8.5 UA PROTEIN DIPSTICK (test code = PROU) 100 (2+) NEGATIVE UA UROBILINOGEN DIPSTICK (test code = URO) 0.2 EU/dL <=1.0 UA NITRITE DIPSTICK (test code = ESTHER) NEGATIVE NEGATIVE UA LEUKOCYTE ESTERASE DIPSTICK (test code = LEUU) NEGATIVE NEGA TIVE UA WBC (test code = WBCU) /HPF 0-3 UA RBC (test code = RBCU) /HPF 0-3 UA EPITHELIAL CELLS (test code = EPIU) /LPF NONE-FEW UA BACTERIA (test code = BACU) /HPF NEGATIVE CBC W/AUTO [id number] 01:04:00* Test Item Value Reference Range Interpretation Comments WHITE BLOOD CELL (test code = WBC) 5.73 K/mm3 5.0-12.0 N RED BLOOD CELL (test code = RBC) 4.85 M/mm3 4.20-5.40 N HEMOGLOBIN (test code = HGB) 9.5 G/DL 12.0-16.0 L HEMATOCRIT (test code = HCT) 32.4 % 36.0-46.0 L MEAN CELL VOLUME (test code = MCV) 67 fL 81-99 L MEAN CELL HGB (test code = MCH) 19.6 PGM 27-31 L MEAN CELL HGB CONCENTRATION (test code = MCHC) 29.3 G/DL 33-37 L RED CELL DISTRIBUTION WIDTH (test code = RDW) 19.2 % 11.6-16. 2 H PLATELET COUNT (test code = PLT) 524 K/mm3 130-400 H MEAN PLATELET VOLUME (test code = MPV) 8.4 fl 7.4-10.4 N NEUTROPHIL % (test code = NT%) 60.8 % 43-65 N IMMATURE GRANULOCYTE % (test code = IG%) 0.3 % 0.0-2.0 N LYMPHOCYTE % (test code = LY%) 29.7 % 20.5-45.5 N MONOCYTE % (test code = MO%) 7.5 % 5.5-11.7 N EOSINOPHIL % (test code = EO%) 1.2 % 0.9-2.9 N BASOPHIL % (test code = BA%) 0.5 % 0.2-1.0 N NUCLEATED RBC % (test code = NRBC%) 0.0 % 0-1.0 N NEUTROPHIL # (test code = NT#) 3.48 K/mm3 2.2-4.8 N LYMPHOCYTE # (test code = LY#) 1.70 K/mm3 1.3-2.9 N MONOCYTE # (test code = MO#) 0.43 K/mm3 0.3-0.8 N EOSINOPHIL # (test code = EO#) 0.07 K/MM3 0.0-0.2 N BASOPHIL # (test code = BA#) 0.03 K/mm3 0.0-0.1 N LACTIC ACID [id number] 01:00:00* Test Item Value Reference Range Interpretation Comments LACTIC ACID POC (test code = LACTP) 1.35 mmol/L 0.36-1.25 H - XR CHEST 1 [id number] 00:59:00Patient Name: DIEGO GARCÍA Unit No: [id number] EXAMS: CPT: [id number] XR CHEST 1 V 80845 CHEST 1 VIEW CLINICAL HISTORY: Fever COMPARISON: None. A single frontal view of the chest is submitted. FINDINGS: The cardiac silhouette is normal in size. Vascularity appears normal. The lungs are clear. No pleural effusion or pneumothorax is seen. No osseous abnormalities are seen. IMPRESSION: Negative chest radiograph. at 0059 Reported and signed by: Indio Orona MD CC: Technologist: Ki Truong Fluoro Time: DAP (Gy m2): Air Kerma (mGy): Trscr Dt/Tm: 06/15/2019 (0059) by:[email or web address] Orig Print D/T: S: 06/15/2019 (0102) BATCH NO: N/A Name: DIEGO GARCÍA [facility] [place] Phys: Mingo Frias [facility] : 1975 Age: 44 Sex: F [place] Loc: T.ERS Exam Date: 06/15/2019 Status: REG ER PH: FAX: PAGE 1 Signed Report - XR CHEST 1 [id number] 21:57:00 Name: DIEGO GARCÍA [facility] : 1975 Age/S:43 /F [address] [facility] Unit#:[id number] [place]: [place] [address] Phys: Thomas Black MD Dis Date: PHONE #: [phone] Status: REG ER FAX #: [phone] Exam Date: 05/09/2019 Re ason: CHEST PAIN EXAMS: CPT CODE: [id number] XR CHEST 1 V 20025 REASON FOR EXAM: CHEST PAIN EXAM ORDER DATE: 05/09/2019 9:13 PM Ordering Sharyn: Thomas Black MD PROCEDURE: - XR CHEST 1 V ABDIRIZAK JESSICA: FINDINGS: Portable AP frontal view of the chest obtained a t 9:41 PM shows clear lungs without evidence of consolidation. There is no evidence of effusion. The heart size is minimally enlarged. Pulmonary vasculatures are minimally congested. IMPRESSION: Minimal ca rdiomegaly and pulmonary venous congestion at 2157 Reported and signed b y: Keo Trevino M.D. CC: Thomas Black MD Technologist: BYRON WALLS RT(R),RDMS,CT Trnscrpt Data: 05/09/2019 (2156) t.SDR.VTL Orig Print D/T: S: 05/09/2019 (3076) PAGE 1 Signed Report BASIC METABOLIC [id number] 21:35:00* Test Item Value Reference Range Interpretation Comments SODIUM (test code = NA) 137 mmol/L 136-145 N POTASSIUM (test code = K) 3.5 mmol/L 3.5-5.1 N CHLORIDE (test code = CL) 99 mmol/L 101-109 L CARBON DIOXIDE (test code = CO2) 27.0 mmol/L 21-32 N ANION GAP (test code = GAP) 15 mmol/L 10-20 N GLUCOSE (test code = GLU) 243 mg/dL 74-106 H BLOOD UREA NITROGEN (test code = BUN) 8 mg/dL 3-21 N GLOMERULAR FILTRATION RATE (test code = GFR) > 60 mL/min >=60 Estimated GFR by using Modified MDRD formula.Chronic kidney disease is defined as either kidney damageor GFR <60 mL/min/1.73 m2 for >3 months. CREATININE (test code = CREAT) 0.62 mg/dL 0.55-1.3 N BUN/CREATININE RATIO (test code = BUN/CREA) 12.9 10-20 N CALCIUM (test code = CA) 8.3 mg/dL 8.4-10.2 L HCG SERUM [id number] 21:35:00* Test Item Value Reference Range Interpretation Comments HCG SERUM QUAL (test code = HCGQL) NEGATIVE NEGATIVE This HCGQL test is NOT applicable for MALE patients.Check with nurse about probable order error.If Tumor Marker Test needed, nurse should order test "HCGTU"(Test #550.72128) [id number] 21:35:00* Test Item Value Reference Range Interpretation Comments TROPONIN-I (test code = TROPI) <0.015 ng/mL 0.00-0.056 N BASIC METABOLIC [id number] 21:28:00* Test Item Value Reference Range Interpretation Comments SODIUM (test code = NA) 137 mmol/L 136-145 N POTASSIUM (test code = K) 3.5 mmol/L 3.5-5.1 N CHLORIDE (test code = CL) 99 mmol/L 101-109 L CARBON DIOXIDE (test code = CO2) 27.0 mmol/L 21-32 N ANION GAP (test code = GAP) 15 mmol/L 10-20 N GLUCOSE (test code = GLU) 243 mg/dL 74-106 H BLOOD UREA NITROGEN (test code = BUN) 8 mg/dL 3-21 N GLOMERULAR FILTRATION RATE (test code = GFR) > 60 mL/min >=60 Estimated GFR by using Modified MDRD formula.Chronic kidney disease is defined as either kidney damageor GFR <60 mL/min/1.73 m2 for >3 months. CREATININE (test code = CREAT) 0.62 mg/dL 0.55-1.3 N BUN/CREATININE RATIO (test code = BUN/CREA) 12.9 10-20 N CALCIUM (test code = CA) 8.3 mg/dL 8.4-10.2 L HCG SERUM [id number] 21:28:00* Test Item Value Reference Range Interpretation Comments HCG SERUM QUAL (test code = HCGQL) NEGATIVE NEGATIVE This HCGQL test is NOT applicable for MALE patients.Check with nurse about probable order error.If Tumor Marker Test needed, nurse should order test "HCGTU"(Test #550.26882) [id number] 21:28:00* Test Item Value Reference Range Interpretation Comments TROPONIN-I (test code = TROPI) ng/mL 0-0.045 BASIC METABOLIC [id number] 21:27:00* Test Item Value Reference Range Interpretation Comments SODIUM (test code = NA) 137 mmol/L 136-145 N POTASSIUM (test code = K) 3.5 mmol/L 3.5-5.1 N CHLORIDE (test code = CL) 99 mmol/L 101-109 L CARBON DIOXIDE (test code = CO2) 27.0 mmol/L 21-32 N ANION GAP (test code = GAP) 15 mmol/L 10-20 N GLUCOSE (test code = GLU) 243 mg/dL 74-106 H BLOOD UREA NITROGEN (test code = BUN) 8 mg/dL 3-21 N GLOMERULAR FILTRATION RATE (test code = GFR) > 60 mL/min >=60 Estimated GFR by using Modified MDRD formula.Chronic kidney disease is defined as either kidney damageor GFR <60 mL/min/1.73 m2 for >3 months. CREATININE (test code = CREAT) 0.62 mg/dL 0.55-1.3 N BUN/CREATININE RATIO (test code = BUN/CREA) 12.9 10-20 N CALCIUM (test code = CA) 8.3 mg/dL 8.4-10.2 L HCG SERUM [id number] 21:27:00* Test Item Value Reference Range Interpretation Comments HCG SERUM QUAL (test code = HCGQL) NEGATIVE [id number] 21:27:00* Test Item Value Reference Range Interpretation Comments TROPONIN-I (test code = TROPI) ng/mL 0-0.045 CBC W/O [id number] 21:22:00* Test Item Value Reference Range Interpretation Comments WHITE BLOOD CELL (test code = WBC) 8.9 K/mm3 4.5-12.5 N RED BLOOD CELL (test code = RBC) 4.62 mill/mm3 3.7-5.2 N HEMOGLOBIN (test code = HGB) 9.0 gram/dL 11.5-15.5 L HEMATOCRIT (test code = HCT) 30.6 % 36.0-46.0 L MEAN CELL VOLUME (test code = MCV) 66.2 fL 80-98 L MEAN CELL HGB (test code = MCH) 19.5 picogram 27.0-33.0 L MEAN CELL HGB CONCETRATION (test code = MCHC) 29.4 gram/dL 33.0-36. 0 L RED CELL DISTRIBUTION WIDTH (test code = RDW) 21.2 % 11.6-16. 2 H RED CELL DISTRIBUTION WIDTH SD (test code = RDW-SD) 50.2 fL 37 .0-51.0 N PLATELET COUNT (test code = PLT) 519 K/mm3 150-450 H MEAN PLATELET VOLUME (test code = MPV) 8.2 fL 6.7-11.0 N [id number] 20:32:00* Test Item Value Reference Range Interpretation Comments GLUBED (test code = GLUBED) 209 mg/dL 74-106 H Performed by certified repeater operator at [facility] [id number] 18:39:00* Test Item Value Reference Range Interpretation Comments GLUBED (test code = GLUBED) 188 mg/dL 74-106 H Performed by certified repeater operator at [facility] [id number] 08:58:00* Test Item Value Reference Range Interpretation Comments GLUBED (test code = GLUBED) 155 mg/dL 74-106 H Performed by certified repeater operator at [facility] CBC W/AUTO [id number] 03:53:00* Test Item Value Reference Range Interpretation Comments WHITE BLOOD CELL (test code = WBC) 4.9 K/mm3 4.5-12.5 N RED BLOOD CELL (test code = RBC) 3.83 mill/mm3 3.7-5.2 N HEMOGLOBIN (test code = HGB) 6.9 gram/dL 11.5-15.5 L HEMATOCRIT (test code = HCT) 24.2 % 36.0-46.0 L MEAN CELL VOLUME (test code = MCV) 63.2 fL 80-98 L MEAN CELL HGB (test code = MCH) 18.0 picogram 27.0-33.0 L MEAN CELL HGB CONCETRATION (test code = MCHC) 28.5 gram/dL 33.0-36. 0 L RED CELL DISTRIBUTION WIDTH (test code = RDW) 18.8 % 11.6-16. 2 H RED CELL DISTRIBUTION WIDTH SD (test code = RDW-SD) 41.8 fL 37 .0-51.0 N PLATELET COUNT (test code = PLT) 484 K/mm3 150-450 H MEAN PLATELET VOLUME (test code = MPV) 8.8 fL 6.7-11.0 N NEUTROPHIL % (test code = NT%) 51.0 % 39.0-69.0 N IMMATURE GRANULOCYTE % (test code = IG%) 0.2 % 0.0-5.0 N LYMPHOCYTE % (test code = LY%) 38.2 % 25.0-55.0 N MONOCYTE % (test code = MO%) 8.8 % 0.0-10.0 N EOSINOPHIL % (test code = EO%) 1.4 % 0.0-5.0 N BASOPHIL % (test code = BA%) 0.4 % 0.0-1.0 N NUCLEATED RBC % (test code = NRBC%) 0.0 % 0-0 N NEUTROPHIL # (test code = NT#) 2.49 K/mm3 1.8-7.7 N IMMATURE GRANULOCYTE # (test code = IG#) 0.01 x10 3/uL 0-0.03 N LYMPHOCYTE # (test code = LY#) 1.87 K/mm3 1.0-5.0 N MONOCYTE # (test code = MO#) 0.43 K/mm3 0-0.8 N EOSINOPHIL # (test code = EO#) 0.07 K/mm3 0.0-0.5 N BASOPHIL # (test code = BA#) 0.02 K/mm3 0.0-0.2 N NUCLEATED RBC # (test code = NRBC#) 0.00 K/mm3 0.0-0.1 N MANUAL DIFF REQUIRED (test code = MDIFF) NO, ONLY SCAN NEEDED DIFFERENTIAL [id number] 03:53:00* Test Item Value Reference Range Interpretation Comments STAIN ACCEPTABILITY (test code = STN ACCEPTABLE) STAIN ACCEPTABLE POLYCHROMASIA (test code = POLC) 1+ HYPOCHROMIA (test code = HYPO) 2+ POIKILOCYTOSIS (test code = POIK) 1+ ANISOCYTOSIS (test code = ANISO) 1+ MICROCYTOSIS (test code = MICR) 1+ PLATELET ESTIMATE (test code = PLTEST) INCREASED PLATELET MORPHOLOGY (test code = PLTMORPH) NORMAL CBC W/AUTO [id number] 03:27:00* Test Item Value Reference Range Interpretation Comments WHITE BLOOD CELL (test code = WBC) 4.9 K/mm3 4.5-12.5 N RED BLOOD CELL (test code = RBC) 3.83 mill/mm3 3.7-5.2 N HEMOGLOBIN (test code = HGB) 6.9 gram/dL 11.5-15.5 L HEMATOCRIT (test code = HCT) 24.2 % 36.0-46.0 L MEAN CELL VOLUME (test code = MCV) 63.2 fL 80-98 L MEAN CELL HGB (test code = MCH) 18.0 picogram 27.0-33.0 L MEAN CELL HGB CONCETRATION (test code = MCHC) 28.5 gram/dL 33.0-36. 0 L RED CELL DISTRIBUTION WIDTH (test code = RDW) 18.8 % 11.6-16. 2 H RED CELL DISTRIBUTION WIDTH SD (test code = RDW-SD) 41.8 fL 37 .0-51.0 N PLATELET COUNT (test code = PLT) 484 K/mm3 150-450 H MEAN PLATELET VOLUME (test code = MPV) 8.8 fL 6.7-11.0 N NEUTROPHIL % (test code = NT%) 51.0 % 39.0-69.0 N IMMATURE GRANULOCYTE % (test code = IG%) 0.2 % 0.0-5.0 N LYMPHOCYTE % (test code = LY%) 38.2 % 25.0-55.0 N MONOCYTE % (test code = MO%) 8.8 % 0.0-10.0 N EOSINOPHIL % (test code = EO%) 1.4 % 0.0-5.0 N BASOPHIL % (test code = BA%) 0.4 % 0.0-1.0 N NUCLEATED RBC % (test code = NRBC%) 0.0 % 0-0 N NEUTROPHIL # (test code = NT#) 2.49 K/mm3 1.8-7.7 N IMMATURE GRANULOCYTE # (test code = IG#) 0.01 x10 3/uL 0-0.03 N LYMPHOCYTE # (test code = LY#) 1.87 K/mm3 1.0-5.0 N MONOCYTE # (test code = MO#) 0.43 K/mm3 0-0.8 N EOSINOPHIL # (test code = EO#) 0.07 K/mm3 0.0-0.5 N BASOPHIL # (test code = BA#) 0.02 K/mm3 0.0-0.2 N NUCLEATED RBC # (test code = NRBC#) 0.00 K/mm3 0.0-0.1 N MANUAL DIFF REQUIRED (test code = MDIFF) NO, ONLY SCAN NEEDED DIFFERENTIAL [id number] 03:27:00* Test Item Value Reference Range Interpretation Comments STAIN ACCEPTABILITY (test code = STN ACCEPTABLE) CABOT RINGS (test code = CAB) MORPHOLOGY COMMENT (test code = MOC) PLATELET ESTIMATE (test code = PLTEST) PLATELET MORPHOLOGY (test code = PLTMORPH) CBC W/AUTO [id number] 03:27:00* Test Item Value Reference Range Interpretation Comments WHITE BLOOD CELL (test code = WBC) 4.9 K/mm3 4.5-12.5 N RED BLOOD CELL (test code = RBC) 3.83 mill/mm3 3.7-5.2 N HEMOGLOBIN (test code = HGB) 6.9 gram/dL 11.5-15.5 L HEMATOCRIT (test code = HCT) 24.2 % 36.0-46.0 L MEAN CELL VOLUME (test code = MCV) 63.2 fL 80-98 L MEAN CELL HGB (test code = MCH) 18.0 picogram 27.0-33.0 L MEAN CELL HGB CONCETRATION (test code = MCHC) 28.5 gram/dL 33.0-36. 0 L RED CELL DISTRIBUTION WIDTH (test code = RDW) 18.8 % 11.6-16. 2 H RED CELL DISTRIBUTION WIDTH SD (test code = RDW-SD) 41.8 fL 37 .0-51.0 N PLATELET COUNT (test code = PLT) 484 K/mm3 150-450 H MEAN PLATELET VOLUME (test code = MPV) 8.8 fL 6.7-11.0 N NEUTROPHIL % (test code = NT%) 51.0 % 39.0-69.0 N IMMATURE GRANULOCYTE % (test code = IG%) 0.2 % 0.0-5.0 N LYMPHOCYTE % (test code = LY%) 38.2 % 25.0-55.0 N MONOCYTE % (test code = MO%) 8.8 % 0.0-10.0 N EOSINOPHIL % (test code = EO%) 1.4 % 0.0-5.0 N BASOPHIL % (test code = BA%) 0.4 % 0.0-1.0 N NUCLEATED RBC % (test code = NRBC%) 0.0 % 0-0 N NEUTROPHIL # (test code = NT#) 2.49 K/mm3 1.8-7.7 N IMMATURE GRANULOCYTE # (test code = IG#) 0.01 x10 3/uL 0-0.03 N LYMPHOCYTE # (test code = LY#) 1.87 K/mm3 1.0-5.0 N MONOCYTE # (test code = MO#) 0.43 K/mm3 0-0.8 N EOSINOPHIL # (test code = EO#) 0.07 K/mm3 0.0-0.5 N BASOPHIL # (test code = BA#) 0.02 K/mm3 0.0-0.2 N NUCLEATED RBC # (test code = NRBC#) 0.00 K/mm3 0.0-0.1 N MANUAL DIFF REQUIRED (test code = MDIFF) NO, ONLY SCAN NEEDED DIFFERENTIAL [id number] 03:27:00* Test Item Value Reference Range Interpretation Comments STAIN ACCEPTABILITY (test code = STN ACCEPTABLE) CABOT RINGS (test code = CAB) MORPHOLOGY COMMENT (test code = MOC) PLATELET ESTIMATE (test code = PLTEST) PLATELET MORPHOLOGY (test code = PLTMORPH) CBC W/AUTO [id number] 03:27:00* Test Item Value Reference Range Interpretation Comments WHITE BLOOD CELL (test code = WBC) 4.9 K/mm3 4.5-12.5 N RED BLOOD CELL (test code = RBC) 3.83 mill/mm3 3.7-5.2 N HEMOGLOBIN (test code = HGB) 6.9 gram/dL 11.5-15.5 L HEMATOCRIT (test code = HCT) 24.2 % 36.0-46.0 L MEAN CELL VOLUME (test code = MCV) 63.2 fL 80-98 L MEAN CELL HGB (test code = MCH) 18.0 picogram 27.0-33.0 L MEAN CELL HGB CONCETRATION (test code = MCHC) 28.5 gram/dL 33.0-36. 0 L RED CELL DISTRIBUTION WIDTH (test code = RDW) 18.8 % 11.6-16. 2 H RED CELL DISTRIBUTION WIDTH SD (test code = RDW-SD) 41.8 fL 37 .0-51.0 N PLATELET COUNT (test code = PLT) 484 K/mm3 150-450 H MEAN PLATELET VOLUME (test code = MPV) 8.8 fL 6.7-11.0 N NEUTROPHIL % (test code = NT%) 51.0 % 39.0-69.0 N IMMATURE GRANULOCYTE % (test code = IG%) 0.2 % 0.0-5.0 N LYMPHOCYTE % (test code = LY%) 38.2 % 25.0-55.0 N MONOCYTE % (test code = MO%) 8.8 % 0.0-10.0 N EOSINOPHIL % (test code = EO%) 1.4 % 0.0-5.0 N BASOPHIL % (test code = BA%) 0.4 % 0.0-1.0 N NUCLEATED RBC % (test code = NRBC%) 0.0 % 0-0 N NEUTROPHIL # (test code = NT#) 2.49 K/mm3 1.8-7.7 N IMMATURE GRANULOCYTE # (test code = IG#) 0.01 x10 3/uL 0-0.03 N LYMPHOCYTE # (test code = LY#) 1.87 K/mm3 1.0-5.0 N MONOCYTE # (test code = MO#) 0.43 K/mm3 0-0.8 N EOSINOPHIL # (test code = EO#) 0.07 K/mm3 0.0-0.5 N BASOPHIL # (test code = BA#) 0.02 K/mm3 0.0-0.2 N NUCLEATED RBC # (test code = NRBC#) 0.00 K/mm3 0.0-0.1 N MANUAL DIFF REQUIRED (test code = MDIFF) NO, ONLY SCAN NEEDED DIFFERENTIAL [id number] 03:27:00* Test Item Value Reference Range Interpretation Comments STAIN ACCEPTABILITY (test code = STN ACCEPTABLE) MORPHOLOGY COMMENT (test code = MOC) PLATELET ESTIMATE (test code = PLTEST) PLATELET MORPHOLOGY (test code = PLTMORPH) CBC W/AUTO [id number] 03:27:00* Test Item Value Reference Range Interpretation Comments WHITE BLOOD CELL (test code = WBC) 4.9 K/mm3 4.5-12.5 N RED BLOOD CELL (test code = RBC) 3.83 mill/mm3 3.7-5.2 N HEMOGLOBIN (test code = HGB) 6.9 gram/dL 11.5-15.5 L HEMATOCRIT (test code = HCT) 24.2 % 36.0-46.0 L MEAN CELL VOLUME (test code = MCV) 63.2 fL 80-98 L MEAN CELL HGB (test code = MCH) 18.0 picogram 27.0-33.0 L MEAN CELL HGB CONCETRATION (test code = MCHC) 28.5 gram/dL 33.0-36. 0 L RED CELL DISTRIBUTION WIDTH (test code = RDW) 18.8 % 11.6-16. 2 H RED CELL DISTRIBUTION WIDTH SD (test code = RDW-SD) 41.8 fL 37 .0-51.0 N PLATELET COUNT (test code = PLT) 484 K/mm3 150-450 H MEAN PLATELET VOLUME (test code = MPV) 8.8 fL 6.7-11.0 N NEUTROPHIL % (test code = NT%) 51.0 % 39.0-69.0 N IMMATURE GRANULOCYTE % (test code = IG%) 0.2 % 0.0-5.0 N LYMPHOCYTE % (test code = LY%) 38.2 % 25.0-55.0 N MONOCYTE % (test code = MO%) 8.8 % 0.0-10.0 N EOSINOPHIL % (test code = EO%) 1.4 % 0.0-5.0 N BASOPHIL % (test code = BA%) 0.4 % 0.0-1.0 N NUCLEATED RBC % (test code = NRBC%) 0.0 % 0-0 N NEUTROPHIL # (test code = NT#) 2.49 K/mm3 1.8-7.7 N IMMATURE GRANULOCYTE # (test code = IG#) 0.01 x10 3/uL 0-0.03 N LYMPHOCYTE # (test code = LY#) 1.87 K/mm3 1.0-5.0 N MONOCYTE # (test code = MO#) 0.43 K/mm3 0-0.8 N EOSINOPHIL # (test code = EO#) 0.07 K/mm3 0.0-0.5 N BASOPHIL # (test code = BA#) 0.02 K/mm3 0.0-0.2 N NUCLEATED RBC # (test code = NRBC#) 0.00 K/mm3 0.0-0.1 N MANUAL DIFF REQUIRED (test code = MDIFF) NO, ONLY SCAN NEEDED DIFFERENTIAL [id number] 03:27:00* Test Item Value Reference Range Interpretation Comments STAIN ACCEPTABILITY (test code = STN ACCEPTABLE) CABOT RINGS (test code = CAB) MORPHOLOGY COMMENT (test code = MOC) PLATELET ESTIMATE (test code = PLTEST) PLATELET MORPHOLOGY (test code = PLTMORPH) [id number] 22:15:00* Test Item Value Reference Range Interpretation Comments GLUBED (test code = GLUBED) 222 mg/dL 74-106 H Performed by certified repeater operator at [facility] CBC W/AUTO [id number] 20:08:00* Test Item Value Reference Range Interpretation Comments WHITE BLOOD CELL (test code = WBC) 4.5 K/mm3 4.5-12.5 N RED BLOOD CELL (test code = RBC) 4.09 mill/mm3 3.7-5.2 N HEMOGLOBIN (test code = HGB) 7.4 gram/dL 11.5-15.5 L HEMATOCRIT (test code = HCT) 26.0 % 36.0-46.0 L MEAN CELL VOLUME (test code = MCV) 63.6 fL 80-98 L MEAN CELL HGB (test code = MCH) 18.1 picogram 27.0-33.0 L MEAN CELL HGB CONCETRATION (test code = MCHC) 28.5 gram/dL 33.0-36. 0 L RED CELL DISTRIBUTION WIDTH (test code = RDW) 19.1 % 11.6-16. 2 H RED CELL DISTRIBUTION WIDTH SD (test code = RDW-SD) 44.1 fL 37 .0-51.0 N PLATELET COUNT (test code = PLT) 533 K/mm3 150-450 H MEAN PLATELET VOLUME (test code = MPV) 8.3 fL 6.7-11.0 N NEUTROPHIL % (test code = NT%) 63.1 % 39.0-69.0 N LYMPHOCYTE % (test code = LY%) 28.0 % 25.0-55.0 N MONOCYTE % (test code = MO%) 7.4 % 0.0-10.0 N EOSINOPHIL % (test code = EO%) 0.9 % 0.0-5.0 N BASOPHIL % (test code = BA%) 0.4 % 0.0-1.0 N NEUTROPHIL # (test code = NT#) 2.81 K/mm3 1.8-7.7 N LYMPHOCYTE # (test code = LY#) 1.25 K/mm3 1.0-5.0 N MONOCYTE # (test code = MO#) 0.33 K/mm3 0-0.8 N EOSINOPHIL # (test code = EO#) 0.04 K/mm3 0.0-0.5 N BASOPHIL # (test code = BA#) 0.02 K/mm3 0.0-0.2 N MANUAL DIFF REQUIRED (test code = MDIFF) NO, ONLY SCAN NEEDED DIFFERENTIAL [id number] 20:08:00* Test Item Value Reference Range Interpretation Comments STAIN ACCEPTABILITY (test code = STN ACCEPTABLE) STAIN ACCEPTABLE HYPOCHROMIA (test code = HYPO) 2+ MICROCYTOSIS (test code = MICR) 2+ MORPHOLOGY COMMENT (test code = MOC) NORMAL PLATELET ESTIMATE (test code = PLTEST) ADEQUATE PLATELET MORPHOLOGY (test code = PLTMORPH) NORMAL URINALYSIS [id number] 19:56:00* Test Item Value Reference Range Interpretation Comments UA COLOR (test code = COLU) LIGHT YELLOW YELLOW UA APPEARANCE (test code = APPU) HAZY CLEAR A UA GLUCOSE DIPSTICK (test code = DGLUU) 1000 (3+) mg/dL NEGATIVE A UA BILIRUBIN DIPSTICK (test code = BILU) NEGATIVE mg/dL NEGATIVE UA KETONE DIPSTICK (test code = KETU) neg mg/dL NEGATIVE UA SPECIFIC GRAVITY (test code = SGU) 1.015 1.001-1.035 UA BLOOD DIPSTICK (test code = SEGUNDO) 250 (4+) Abhinav/uL NEGATIVE A UA PH DIPSTICK (test code = RONAN) 6.0 5.0-8.0 UA PROTEIN DIPSTICK (test code = PROU) 15 (TRACE) mg/dL Neg-15 A UA UROBILINIOGEN DIPSTICK (test code = URO) 1 mg/dL 0.0-0.2 A UA NITRITE DIPSTICK (test code = ESTHER) NEGATIVE NEGATIVE UA LEUKOCYTE ESTERASE DIPSTICK (test code = LEUU) 25 Mark/uL (Tra ce) uL NEGATIVE A UA WBC (test code = WBCU) 3-5 per HPF 0-5 UA RBC (test code = RBCU) 10-15 per HPF 0-5 A UA EPITHELIAL CELLS (test code = EPIU) Rare (0-1/hpf) per HPF Few UA BACTERIA (test code = BACU) FEW per HPF NONE UA MUCUS (test code = MUCU) FEW per LPF NONE-FEW Urine Source? Clean CatchUR HCG [id number] 19:56:00* Test Item Value Reference Range Interpretation Comments UR HCG QUAL (test code = HCGQLU) NEGATIVE This HCGQL test is NOT applicable for MALE patients.Check with nurse about probable order error.If Tumor Marker Test needed, nurse should order test "HCGTU"(Test #[id number]) Urine Source? Clean CatchURINALYSIS [id number] 19:52:00* Test Item Value Reference Range Interpretation Comments UA COLOR (test code = COLU) LIGHT YELLOW YELLOW UA APPEARANCE (test code = APPU) HAZY CLEAR A UA GLUCOSE DIPSTICK (test code = DGLUU) 1000 (3+) mg/dL NEGATIVE A UA BILIRUBIN DIPSTICK (test code = BILU) NEGATIVE mg/dL NEGATIVE UA KETONE DIPSTICK (test code = KETU) neg mg/dL NEGATIVE UA SPECIFIC GRAVITY (test code = SGU) 1.015 1.001-1.035 UA BLOOD DIPSTICK (test code = SEGUNDO) 250 (4+) Abhinav/uL NEGATIVE A UA PH DIPSTICK (test code = RONAN) 6.0 5.0-8.0 UA PROTEIN DIPSTICK (test code = PROU) 15 (TRACE) mg/dL Neg-15 A UA UROBILINIOGEN DIPSTICK (test code = URO) 1 mg/dL 0.0-0.2 A UA NITRITE DIPSTICK (test code = ESTHER) NEGATIVE NEGATIVE UA LEUKOCYTE ESTERASE DIPSTICK (test code = LEUU) 25 Mark/uL (Tra ce) uL NEGATIVE A UA WBC (test code = WBCU) per HPF 0-5 UA RBC (test code = RBCU) per HPF 0-5 UA EPITHELIAL CELLS (test code = EPIU) per HPF Few UA BACTERIA (test code = BACU) per HPF NONE Urine Source? Clean CatchUR HCG [id number] 19:52:00* Test Item Value Reference Range Interpretation Comments UR HCG QUAL (test code = HCGQLU) NEGATIVE This HCGQL test is NOT applicable for MALE patients.Check with nurse about probable order error.If Tumor Marker Test needed, nurse should order test "HCGTU"(Test #[id number]) Urine Source? Clean CatchURINALYSIS [id number] 19:47:00* Test Item Value Reference Range Interpretation Comments UA COLOR (test code = COLU) LIGHT YELLOW YELLOW UA APPEARANCE (test code = APPU) HAZY CLEAR A UA GLUCOSE DIPSTICK (test code = DGLUU) 1000 (3+) mg/dL NEGATIVE A UA BILIRUBIN DIPSTICK (test code = BILU) NEGATIVE mg/dL NEGATIVE UA KETONE DIPSTICK (test code = KETU) neg mg/dL NEGATIVE UA SPECIFIC GRAVITY (test code = SGU) 1.015 1.001-1.035 UA BLOOD DIPSTICK (test code = SEGUNDO) 250 (4+) Abhinav/uL NEGATIVE A UA PH DIPSTICK (test code = RONAN) 6.0 5.0-8.0 UA PROTEIN DIPSTICK (test code = PROU) 15 (TRACE) mg/dL Neg-15 A UA UROBILINIOGEN DIPSTICK (test code = URO) 1 mg/dL 0.0-0.2 A UA NITRITE DIPSTICK (test code = ESTHER) NEGATIVE NEGATIVE UA LEUKOCYTE ESTERASE DIPSTICK (test code = LEUU) 25 Mark/uL (Tra ce) uL NEGATIVE A UA WBC (test code = WBCU) per HPF 0-5 UA RBC (test code = RBCU) per HPF 0-5 UA EPITHELIAL CELLS (test code = EPIU) per HPF Few UA BACTERIA (test code = BACU) per HPF NONE Urine Source? Clean CatchUR HCG [id number] 19:47:00* Test Item Value Reference Range Interpretation Comments UR HCG QUAL (test code = HCGQLU) Urine Source? Clean Catch- XR SHOULDER 2 + V [id number] 19:01:00 Name: DIEGO GARCÍA Imaging [facility] : 1975 Age/S:43 /F [address] [facility] Unit#:[id number] Loc: V.EROBS [address] [place] [address] Phys: Koffi Leonardo MD Dis Date: PHONE #: [phone] Status: ADM IN FAX #: [phone] Exam Date: 03/17/2019 Re ason: shoulder pain EXAMS: CPT CODE: [id number] XR SHOULDER 2 + [place] [id number] REASON FOR E XAM: shoulder pain EXAM ORDER DATE: 03/17/2019 6:39 PM Ordering M.D.: Kike Leonardo MD PROCEDURE: - XR SHOULDER 2 + V LT FINDINGS: 3 views of the left shoulder were obtained. The oss eous structures are unremarkable in size and shape. The joint spaces are maintained. There is normal alignment of the humeral head. No umair dence of fracture. The acromial clavicular joint is intact IMP RESSION: Unremarkable left shoulder at 1901 Reported and signed by: Keo Trevino M.D. CC: Kike Loenardo MD Technologist: [facility] F[facility] Data: 03/17/2019 (1900) t.SDR.VTL Orig Print D/T: S: 03/18/2019 (0037) PAGE 1 Signed Report COMPREHENSIVE METABOLIC PANEL 2019-03-17 19:00:00* Test Item Value Reference Range Interpretation Comments SODIUM (test code = NA) 138 mmol/L 135-148 N POTASSIUM (test code = K) 3.2 mmol/L 3.5-5.1 L CHLORIDE (test code = CL) 101 mmol/L 101-109 N CARBON DIOXIDE (test code = CO2) 28.6 mmol/L 21-32 N ANION GAP (test code = GAP) 12 mmol/L 10-20 N GLUCOSE (test code = GLU) 276 mg/dL 74-106 H BLOOD UREA NITROGEN (test code = BUN) 10 mg/dL 3-21 N CREATININE (test code = CREAT) 0.52 mg/dL 0.55-1.3 L BUN/CREATININE RATIO (test code = BUN/CREA) 19.2 10-20 N TOTAL PROTEIN (test code = PROT) 7.1 g/dL 6.5-8.4 N ALBUMIN (test code = ALB) 2.8 g/dL 3.4-4.8 L GLOBULIN (test code = GLOB) 4.3 G/DL 1-10 N ALBUMIN/GLOBULIN RATIO (test code = A/G) 0.7 RATIO 0.75-1.50 L CALCIUM (test code = CA) 8.8 mg/dL 8.4-10.2 N BILIRUBIN TOTAL (test code = BILT) 0.20 mg/dL 0.0-1.0 N SGOT/AST (test code = AST) 9 U/L 6-32 N SGPT/ALT (test code = ALT) 16 U/L 12-78 N N ote: Change in REFERENCE RANGE due to new reagent method. ALKALINE PHOSPHATASE TOTAL (test code = ALKP) 72 U/L 38-126 N [id number] 19:00:00* Test Item Value Reference Range Interpretation Comments TROPONIN-I (test code = TROPI) <0.015 ng/mL 0.00-0.056 N COMPREHENSIVE METABOLIC [id number] 18:55:00* Test Item Value Reference Range Interpretation Comments SODIUM (test code = NA) 138 mmol/L 135-148 N POTASSIUM (test code = K) 3.2 mmol/L 3.5-5.1 L CHLORIDE (test code = CL) 101 mmol/L 101-109 N CARBON DIOXIDE (test code = CO2) 28.6 mmol/L 21-32 N ANION GAP (test code = GAP) 12 mmol/L 10-20 N GLUCOSE (test code = GLU) 276 mg/dL 74-106 H BLOOD UREA NITROGEN (test code = BUN) 10 mg/dL 3-21 N CREATININE (test code = CREAT) 0.52 mg/dL 0.55-1.3 L BUN/CREATININE RATIO (test code = BUN/CREA) 19.2 10-20 N TOTAL PROTEIN (test code = PROT) gram/dL 6.4-8.2 ALBUMIN (test code = ALB) g/dL 3.4-5.0 GLOBULIN (test code = GLOB) g/dL 2.7-4.2 ALBUMIN/GLOBULIN RATIO (test code = A/G) 0.75-1.50 CALCIUM (test code = CA) 8.8 mg/dL 8.4-10.2 N BILIRUBIN TOTAL (test code = BILT) mg/dL 0.2-1.2 SGOT/AST (test code = AST) IUnit/L 15-37 SGPT/ALT (test code = ALT) U/L 10-69 ALKALINE PHOSPHATASE TOTAL (test code = ALKP) IUnit/L 45-117 [id number] 18:55:00* Test Item Value Reference Range Interpretation Comments TROPONIN-I (test code = TROPI) ng/mL 0-0.045 CBC W/AUTO [id number] 18:45:00* Test Item Value Reference Range Interpretation Comments WHITE BLOOD CELL (test code = WBC) 4.5 K/mm3 4.5-12.5 N RED BLOOD CELL (test code = RBC) 4.09 mill/mm3 3.7-5.2 N HEMOGLOBIN (test code = HGB) 7.4 gram/dL 11.5-15.5 L HEMATOCRIT (test code = HCT) 26.0 % 36.0-46.0 L MEAN CELL VOLUME (test code = MCV) 63.6 fL 80-98 L MEAN CELL HGB (test code = MCH) 18.1 picogram 27.0-33.0 L MEAN CELL HGB CONCETRATION (test code = MCHC) 28.5 gram/dL 33.0-36. 0 L RED CELL DISTRIBUTION WIDTH (test code = RDW) 19.1 % 11.6-16. 2 H RED CELL DISTRIBUTION WIDTH SD (test code = RDW-SD) 44.1 fL 37 .0-51.0 N PLATELET COUNT (test code = PLT) 533 K/mm3 150-450 H MEAN PLATELET VOLUME (test code = MPV) 8.3 fL 6.7-11.0 N NEUTROPHIL % (test code = NT%) 63.1 % 39.0-69.0 N LYMPHOCYTE % (test code = LY%) 28.0 % 25.0-55.0 N MONOCYTE % (test code = MO%) 7.4 % 0.0-10.0 N EOSINOPHIL % (test code = EO%) 0.9 % 0.0-5.0 N BASOPHIL % (test code = BA%) 0.4 % 0.0-1.0 N NEUTROPHIL # (test code = NT#) 2.81 K/mm3 1.8-7.7 N LYMPHOCYTE # (test code = LY#) 1.25 K/mm3 1.0-5.0 N MONOCYTE # (test code = MO#) 0.33 K/mm3 0-0.8 N EOSINOPHIL # (test code = EO#) 0.04 K/mm3 0.0-0.5 N BASOPHIL # (test code = BA#) 0.02 K/mm3 0.0-0.2 N MANUAL DIFF REQUIRED (test code = MDIFF) NO, ONLY SCAN NEEDED DIFFERENTIAL [id number] 18:45:00* Test Item Value Reference Range Interpretation Comments STAIN ACCEPTABILITY (test code = STN ACCEPTABLE) CABOT RINGS (test code = CAB) MORPHOLOGY COMMENT (test code = MOC) PLATELET ESTIMATE (test code = PLTEST) PLATELET MORPHOLOGY (test code = PLTMORPH) CBC W/AUTO [id number] 18:45:00* Test Item Value Reference Range Interpretation Comments WHITE BLOOD CELL (test code = WBC) 4.5 K/mm3 4.5-12.5 N RED BLOOD CELL (test code = RBC) 4.09 mill/mm3 3.7-5.2 N HEMOGLOBIN (test code = HGB) 7.4 gram/dL 11.5-15.5 L HEMATOCRIT (test code = HCT) 26.0 % 36.0-46.0 L MEAN CELL VOLUME (test code = MCV) 63.6 fL 80-98 L MEAN CELL HGB (test code = MCH) 18.1 picogram 27.0-33.0 L MEAN CELL HGB CONCETRATION (test code = MCHC) 28.5 gram/dL 33.0-36. 0 L RED CELL DISTRIBUTION WIDTH (test code = RDW) 19.1 % 11.6-16. 2 H RED CELL DISTRIBUTION WIDTH SD (test code = RDW-SD) 44.1 fL 37 .0-51.0 N PLATELET COUNT (test code = PLT) 533 K/mm3 150-450 H MEAN PLATELET VOLUME (test code = MPV) 8.3 fL 6.7-11.0 N NEUTROPHIL % (test code = NT%) 63.1 % 39.0-69.0 N LYMPHOCYTE % (test code = LY%) 28.0 % 25.0-55.0 N MONOCYTE % (test code = MO%) 7.4 % 0.0-10.0 N EOSINOPHIL % (test code = EO%) 0.9 % 0.0-5.0 N BASOPHIL % (test code = BA%) 0.4 % 0.0-1.0 N NEUTROPHIL # (test code = NT#) 2.81 K/mm3 1.8-7.7 N LYMPHOCYTE # (test code = LY#) 1.25 K/mm3 1.0-5.0 N MONOCYTE # (test code = MO#) 0.33 K/mm3 0-0.8 N EOSINOPHIL # (test code = EO#) 0.04 K/mm3 0.0-0.5 N BASOPHIL # (test code = BA#) 0.02 K/mm3 0.0-0.2 N MANUAL DIFF REQUIRED (test code = MDIFF) NO, ONLY SCAN NEEDED DIFFERENTIAL [id number] 18:45:00* Test Item Value Reference Range Interpretation Comments STAIN ACCEPTABILITY (test code = STN ACCEPTABLE) CABOT RINGS (test code = CAB) MORPHOLOGY COMMENT (test code = MOC) PLATELET ESTIMATE (test code = PLTEST) PLATELET MORPHOLOGY (test code = PLTMORPH) CBC W/AUTO [id number] 18:45:00* Test Item Value Reference Range Interpretation Comments WHITE BLOOD CELL (test code = WBC) 4.5 K/mm3 4.5-12.5 N RED BLOOD CELL (test code = RBC) 4.09 mill/mm3 3.7-5.2 N HEMOGLOBIN (test code = HGB) 7.4 gram/dL 11.5-15.5 L HEMATOCRIT (test code = HCT) 26.0 % 36.0-46.0 L MEAN CELL VOLUME (test code = MCV) 63.6 fL 80-98 L MEAN CELL HGB (test code = MCH) 18.1 picogram 27.0-33.0 L MEAN CELL HGB CONCETRATION (test code = MCHC) 28.5 gram/dL 33.0-36. 0 L RED CELL DISTRIBUTION WIDTH (test code = RDW) 19.1 % 11.6-16. 2 H RED CELL DISTRIBUTION WIDTH SD (test code = RDW-SD) 44.1 fL 37 .0-51.0 N PLATELET COUNT (test code = PLT) 533 K/mm3 150-450 H MEAN PLATELET VOLUME (test code = MPV) 8.3 fL 6.7-11.0 N NEUTROPHIL % (test code = NT%) 63.1 % 39.0-69.0 N LYMPHOCYTE % (test code = LY%) 28.0 % 25.0-55.0 N MONOCYTE % (test code = MO%) 7.4 % 0.0-10.0 N EOSINOPHIL % (test code = EO%) 0.9 % 0.0-5.0 N BASOPHIL % (test code = BA%) 0.4 % 0.0-1.0 N NEUTROPHIL # (test code = NT#) 2.81 K/mm3 1.8-7.7 N LYMPHOCYTE # (test code = LY#) 1.25 K/mm3 1.0-5.0 N MONOCYTE # (test code = MO#) 0.33 K/mm3 0-0.8 N EOSINOPHIL # (test code = EO#) 0.04 K/mm3 0.0-0.5 N BASOPHIL # (test code = BA#) 0.02 K/mm3 0.0-0.2 N MANUAL DIFF REQUIRED (test code = MDIFF) NO, ONLY SCAN NEEDED DIFFERENTIAL [id number] 18:45:00* Test Item Value Reference Range Interpretation Comments STAIN ACCEPTABILITY (test code = STN ACCEPTABLE) MORPHOLOGY COMMENT (test code = MOC) PLATELET ESTIMATE (test code = PLTEST) PLATELET MORPHOLOGY (test code = PLTMORPH) CBC W/AUTO [id number] 18:45:00* Test Item Value Reference Range Interpretation Comments WHITE BLOOD CELL (test code = WBC) 4.5 K/mm3 4.5-12.5 N RED BLOOD CELL (test code = RBC) 4.09 mill/mm3 3.7-5.2 N HEMOGLOBIN (test code = HGB) 7.4 gram/dL 11.5-15.5 L HEMATOCRIT (test code = HCT) 26.0 % 36.0-46.0 L MEAN CELL VOLUME (test code = MCV) 63.6 fL 80-98 L MEAN CELL HGB (test code = MCH) 18.1 picogram 27.0-33.0 L MEAN CELL HGB CONCETRATION (test code = MCHC) 28.5 gram/dL 33.0-36. 0 L RED CELL DISTRIBUTION WIDTH (test code = RDW) 19.1 % 11.6-16. 2 H RED CELL DISTRIBUTION WIDTH SD (test code = RDW-SD) 44.1 fL 37 .0-51.0 N PLATELET COUNT (test code = PLT) 533 K/mm3 150-450 H MEAN PLATELET VOLUME (test code = MPV) 8.3 fL 6.7-11.0 N NEUTROPHIL % (test code = NT%) 63.1 % 39.0-69.0 N LYMPHOCYTE % (test code = LY%) 28.0 % 25.0-55.0 N MONOCYTE % (test code = MO%) 7.4 % 0.0-10.0 N EOSINOPHIL % (test code = EO%) 0.9 % 0.0-5.0 N BASOPHIL % (test code = BA%) 0.4 % 0.0-1.0 N NEUTROPHIL # (test code = NT#) 2.81 K/mm3 1.8-7.7 N LYMPHOCYTE # (test code = LY#) 1.25 K/mm3 1.0-5.0 N MONOCYTE # (test code = MO#) 0.33 K/mm3 0-0.8 N EOSINOPHIL # (test code = EO#) 0.04 K/mm3 0.0-0.5 N BASOPHIL # (test code = BA#) 0.02 K/mm3 0.0-0.2 N MANUAL DIFF REQUIRED (test code = MDIFF) NO, ONLY SCAN NEEDED DIFFERENTIAL [id number] 18:45:00* Test Item Value Reference Range Interpretation Comments STAIN ACCEPTABILITY (test code = STN ACCEPTABLE) CABOT RINGS (test code = CAB) MORPHOLOGY COMMENT (test code = MOC) PLATELET ESTIMATE (test code = PLTEST) PLATELET MORPHOLOGY (test code = PLTMORPH) - CT ABD PELVIS W/O [id number] 15:42:00 Name: DIEGO GARCÍA [facility] : 1975 Age/S: 43 / F [address] [facility] Unit #: [id number] Loc: [place] [address] Phys: Marla Muro MD Acct: [id number] Dis Date: Status: REG ER PHONE #: [phone] Exam Date: 12/19/2018 1522 FAX #: [phone] Reason: suprapubic and RLQ pain eval for appy EXAMS: CPT CODE: [id number] CT ABD PELVIS W/O CONT [id number] EXAM: CT of the abdomen and pelvis without contrast; INFORMATION: Suprapubic pain and right lower quadrant pain; TECHNIQUE: CT dose reduction protocol; Renal stone protocol; FINDINGS: The kidneys are of normal size and shape; no calcifications and no hydronephrosis. No evidence of ureteral stones. A calcification is seen lateral to the left psoas muscle consistent with a small calcified lymph node. No evidence of appendicitis or other acute bowel abnormalities. Parenchymal organs of the abdomen and the biliary system are unremarkable. No pelvic mass lesions; no abnormal fluid collections. Small calcified plaques in the abdominal aorta and the right common iliac artery and calcification of the SISI. Scans through the lung bases are clear. IMPRESSION: 1. No evidence of renal or ureteral stones or of obstructive uropathy. 2. No evidence of acute appendicitis or other acute abdominal or pelvic abnormalities. at 1542 Reported and signed by: Josh Vang M.D. CC: Marla Muro MD Technologist:MATA GUZMAN, RT(R),CT CTDI: DLP: Trnscb Date/Time: 9 (1542) [email or web address] Orig Print D/T: S: 12/19/2018 (9216) CTDI: DLP: PAGE 1 Signed Report [id number] 15:02:00* Test Item Value Reference Range Interpretation Comments GLUBED (test code = GLUBED) 261 mg/dL 74-106 H Performed by certified repeater operator at [facility] URINALYSIS [id number] 14:44:00* Test Item Value Reference Range Interpretation Comments UA COLOR (test code = COLU) STRAW YELLOW UA APPEARANCE (test code = APPU) HAZY CLEAR A UA GLUCOSE DIPSTICK (test code = DGLUU) 1000(3+) mg/dL NEGATIVE A UA BILIRUBIN DIPSTICK (test code = BILU) NEGATIVE mg/dL NEGATIVE UA KETONE DIPSTICK (test code = KETU) neg mg/dL NEGATIVE UA SPECIFIC GRAVITY (test code = SGU) 1.005 1.001-1.035 UA BLOOD DIPSTICK (test code = SEGUNDO) 25 (1+) Abhinav/uL NEGATIVE A UA PH DIPSTICK (test code = RONAN) 6.5 5.0-8.0 UA PROTEIN DIPSTICK (test code = PROU) 30 (1+) mg/dL Neg-15 A UA UROBILINIOGEN DIPSTICK (test code = URO) norm mg/dL 0.0-0.2 UA NITRITE DIPSTICK (test code = ESTHER) NEGATIVE NEGATIVE UA LEUKOCYTE ESTERASE DIPSTICK (test code = LEUU) 500/uL (3+) uL NE GATIVE A UA WBC (test code = WBCU) >50 per HPF 0-5 IN SOME URINARY TRACT INFECTIONS THERE MAY NOT BE ENOUGHWBCs IN THE URINE TO TRIGGER AN AUTOMATIC (REFLEX) URINECULTURE. A SEPERATE ORDER FOR URINE CULTURE IS RECOMMENDEDIF THERE IS STRONG SUPPORT FOR A URINARY TRACT INFECTIONCLINICALLY. UA RBC (test code = RBCU) 0-3 per HPF 0-5 UA EPITHELIAL CELLS (test code = EPIU) Few (2-5/hpf) per HPF Few UA BACTERIA (test code = BACU) TRACE per HPF NONE URINALYSIS W/O [id number] 14:44:00* Test Item Value Reference Range Interpretation Comments UA MICROSCOPIC NEEDED? (test code = UAMICRO) YES UR HCG [id number] 14:44:00* Test Item Value Reference Range Interpretation Comments UR HCG QUAL (test code = HCGQLU) NEGATIVE This HCGQL test is NOT applicable for MALE patients.Check with nurse about probable order error.If Tumor Marker Test needed, nurse should order test "HCGTU"(Test #550.04320) URINALYSIS [id number] 14:33:00* Test Item Value Reference Range Interpretation Comments UA COLOR (test code = COLU) STRAW YELLOW UA APPEARANCE (test code = APPU) HAZY CLEAR A UA GLUCOSE DIPSTICK (test code = DGLUU) 1000(3+) mg/dL NEGATIVE A UA BILIRUBIN DIPSTICK (test code = BILU) NEGATIVE mg/dL NEGATIVE UA KETONE DIPSTICK (test code = KETU) neg mg/dL NEGATIVE UA SPECIFIC GRAVITY (test code = SGU) 1.005 1.001-1.035 UA BLOOD DIPSTICK (test code = SEGUNDO) 25 (1+) Abhinav/uL NEGATIVE A UA PH DIPSTICK (test code = RONAN) 6.5 5.0-8.0 UA PROTEIN DIPSTICK (test code = PROU) 30 (1+) mg/dL Neg-15 A UA UROBILINIOGEN DIPSTICK (test code = URO) norm mg/dL 0.0-0.2 UA NITRITE DIPSTICK (test code = ESTHER) NEGATIVE NEGATIVE UA LEUKOCYTE ESTERASE DIPSTICK (test code = LEUU) 500/uL (3+) uL NE GATIVE A UA WBC (test code = WBCU) per HPF 0-5 URINALYSIS W/O [id number] 14:33:00* Test Item Value Reference Range Interpretation Comments UA MICROSCOPIC NEEDED? (test code = UAMICRO) YES UR HCG [id number] 14:33:00* Test Item Value Reference Range Interpretation Comments UR HCG QUAL (test code = HCGQLU) URINALYSIS [id number] 14:33:00* Test Item Value Reference Range Interpretation Comments UA COLOR (test code = COLU) STRAW YELLOW UA APPEARANCE (test code = APPU) HAZY CLEAR A UA GLUCOSE DIPSTICK (test code = DGLUU) 1000(3+) mg/dL NEGATIVE A UA BILIRUBIN DIPSTICK (test code = BILU) NEGATIVE mg/dL NEGATIVE UA KETONE DIPSTICK (test code = KETU) neg mg/dL NEGATIVE UA SPECIFIC GRAVITY (test code = SGU) 1.005 1.001-1.035 UA BLOOD DIPSTICK (test code = SEGUNDO) 25 (1+) Abhinav/uL NEGATIVE A UA PH DIPSTICK (test code = RONAN) 6.5 5.0-8.0 UA PROTEIN DIPSTICK (test code = PROU) 30 (1+) mg/dL Neg-15 A UA UROBILINIOGEN DIPSTICK (test code = URO) norm mg/dL 0.0-0.2 UA NITRITE DIPSTICK (test code = ESTHER) NEGATIVE NEGATIVE UA LEUKOCYTE ESTERASE DIPSTICK (test code = LEUU) 500/uL (3+) uL NE GATIVE A UA WBC (test code = WBCU) per HPF 0-5 URINALYSIS W/O [id number] 14:33:00* Test Item Value Reference Range Interpretation Comments UA MICROSCOPIC NEEDED? (test code = UAMICRO) YES UR HCG [id number] 14:33:00* Test Item Value Reference Range Interpretation Comments UR HCG QUAL (test code = HCGQLU)
[2020-05-17 15:53] LABS: BASOPHILS % 0.1 % (0.0-1.0); EOSINOPHILS # (AUTO) 0.1 (0.0-0.4); EOSINOPHILS % 0.8 % (0.0-6.0); LYMPHOCYTES # (AUTO) 1.3 (1.0-3.2); LYMPHOCYTES % 16.2 % (18.0-39.1); MEAN CORPUSCULAR HEMOGLOBIN 17.8 pg (28-32); MEAN CORPUSCULAR HGB CONC 27.3 g/dL (31-35); MONOCYTES # (AUTO) 0.5 (0.2-0.8); MONOCYTES % 6.5 % (4.4-11.3); NEUTROPHILS % 75.8 % (38.7-80.0); PLATELET COUNT 486 x10e3/uL (140-360); RED BLOOD COUNT 3.49 x10e6/uL (3.6-5.1); RED CELL DISTRIBUTION WIDTH 24.9 % (11.7-14.4)
[2020-05-17 16:04] LABS: HEMATOCRIT 22.7 % (34.2-44.1); HEMOGLOBIN 6.2 g/dL (12.0-16.0)
[2020-05-17 16:08] LABS: INR 0.96; PROTHROMBIN TIME 13.3 seconds (11.9-14.5)
[2020-05-17 16:09] LABS: PARTIAL THROMBOPLASTIN TIME 36.9 seconds (23.8-35.5)
[2020-05-17] MEDS ORDERED: SODIUM CHLORIDE 0.9% 250ML 250 ML IV ONE (16:15)
[2020-05-17] MEDS ORDERED: FUROSEMIDE INJ 10 MG/ML 2 ML VIAL IV PRN (16:15)
[2020-05-17 16:18] LABS: ALANINE AMINOTRANSFERASE 13 IU/L (0-55); ALBUMIN 2.8 g/dL (3.5-5.0); ALBUMIN/GLOBULIN RATIO 0.7 (0.8-2.0); ALKALINE PHOSPHATASE 64 IU/L (40-150); ANION GAP 14.5 mmol/L (8-16); BLOOD UREA NITROGEN 12 mg/dL (7-26); BUN/CREATININE RATIO 20 (6-25); CALCIUM 8.8 mg/dL (8.4-10.2); CARBON DIOXIDE 23 mmol/L (22-29); CHLORIDE 103 mmol/L (98-107); CREATINE KINASE 12 IU/L (29-168); CREATININE, SERUM 0.59 mg/dL (0.57-1.11); EST GLOMERULAR FILTRATION RATE > 60 ML/MIN (60-); GLUCOSE 113 mg/dL (74-118); MAGNESIUM 1.4 MG/DL (1.3-2.1); POTASSIUM 3.5 mmol/L (3.5-5.1); SODIUM 137 mmol/L (136-145)
[2020-05-17 16:45] LABS: EOSINOPHILS % (MANUAL) 1 % (0-7); HYPOCHROMASIA MODERATE; LYMPHOCYTES % (MANUAL) 28 % (19-48); MONOCYTES % (MANUAL) 1 % (3.4-9.0); NEUTROPHILS % (MANUAL) 68 % (40-74); NUCLEATED RED BLOOD CELLS 1; PLATELET ESTIMATE ADEQUATE; PLATELET MORPHOLOGY COMMENT FEW GIANT; RBC MORPHOLOGY COMMENT ABNORMAL
[2020-05-17] MEDS ORDERED: MORPHINE SULFATE 2 MG/ML SYR 1ML IV PRN (16:45)
[2020-05-17] MEDS ORDERED: ONDANSETRON HCL INJ 2MG/ML 2ML 2 MG/ML VIAL IV PRN (16:45)
[2020-05-17 16:46] LABS: ANISOCYTOSIS MODERATE; MICROCYTOSIS MODERATE
[2020-05-17 16:48] LABS: STOMATOCYTES SLIGHT; TEAR DROP CELLS FEW
[2020-05-17 16:50] LABS: ACANTHOCYTES FEW; BURR CELLS SLIGHT
[2020-05-17 16:51] LABS: TARGET CELLS MODERATE
[2020-05-17] MEDS ORDERED: ENOXAPARIN SODIUM INJ 100 MG/ML SYR SC ONE (17:00)
[2020-05-17] MEDS ORDERED: MORPHINE SULFATE INJ 4 MG/ML INJ 1ML IV PRN (17:00)
--- OUTSIDE RECORDS SUMMARY | 2020-05-17 17:03 | XMS REPORT | Continuity of Care Document ---
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
--- NOTE | 2020-05-17 17:14 | Diagnostic Imaging Report ---
EXAMINATION: CHEST SINGLE (PORTABLE) COMPARISON: None INDICATION: Leg pain ^Y ^RECENT COVID POSITIVE ^[id number] ^1648 DISCUSSION: Frontal view of the chest obtained at 1626 hours. HEART AND MEDIASTINUM: The heart is mildly enlarged. Pulmonary veins are mildly prominent. LINES: None. LUNGS/PLEURA: Mild right basilar airspace opacity. Left lung is clear. No interstitial edema. No pleural effusion or pneumothorax. BONES AND SOFT TISSUES: No focal osseous lesion. The soft tissues are normal. IMPRESSION: Right basilar airspace opacity may represent atelectasis or developing infiltrate. Myocardial mainly. No evidence of vascular congestion. Signed by: Dr. Radha Luong MD on 05/17/2020 5:11 PM
--- NOTE | 2020-05-17 17:17 | Emergency Department Note ---
History of Present Illnes History of Present Illness Chief Complaint: COVID PUI History of Present Illness This is a 45 year old female POSITIVE COVID AND TRANSFERRED FROM [facility] TO [facility] LAST WEEK, IN HOSPITAL FOR 3-4 DAYS pt c/o pain to left hip down to foot and swelling to left foot pedal pulse palpable. Historian: Patient Arrival Mode: Car Line Lead Required: No Onset (how long ago): day(s) (10) Location: left leg Quality: pain/swelling Radiation: Reports non-radiation Severity: severe Onset quality: gradual Timing of current episode: constant Chronicity: new Context: Denies recent illness Relieving factors: none Exacerbating factors: none Associated symptoms: Reports denies other symptoms Treatments prior to arrival: none Past Medical/Family History Physician Review I have reviewed the patient's past medical and family history. Any updates have been documented here. Past Medical History Recent Fever: No Clinical Suspicion of Infectio: Yes New/Unexplained Change in Ment: No Past Medical History: Hypertension, Diabetes Other Medical History: HTN AND DM NOT TREATED FOR ABOUT 4 YRS Past Surgical History: Other Surgery: LT KNEE FX C-SECT X4 Social History Smoking Cessation: Never Smoker Counseling Performed: No Alcohol Use: Occasional Any Illegal Drug Use: No Physically hurt or threatened: No Other Last Tetanus: >10 YRS Any Pre-Existing Lines (PICC,: No Review of Systems Review of Systems Constitutional: Reports no symptoms EENTM: Reports no symptoms Cardiovascular: Reports no symptoms Respiratory: Reports no symptoms Gastrointestinal: Reports no symptoms Genitourinary: Reports no symptoms Musculoskeletal: Reports as per HPI Integumentary: Reports no symptoms Neurological: Reports no symptoms Psychological: Reports no symptoms Endocrine: Reports no symptoms Hematological/Lymphatic: Reports no symptoms Physical Exam Related Data Allergies: Coded Allergies: No Known Allergies (Unverified , 11/11/18) Triage Vital Signs Vital Signs Date Time Temp Pulse Resp B/P (MAP) Pulse Ox O2 Delivery O2 Flow Rate FiO2 05/17/20 15:20 99.0 108 18 161/71 100 Room Air Vital signs reviewed: Yes Physical Exam CONSTITUTIONAL Constitutional: Present well-developed, Present well-nourished HENT HENT: Present normocephalic, Present atraumatic, Present oropharynx clear/moist, Present nose normal HENT L/R: Present left ext ear normal, Present right ext ear normal EYES Eyes: Reports PERRL, Reports conjunctivae normal NECK Neck: Present ROM normal PULMONARY Pulmonary: Present effort normal, Present breath sounds normal CARDIOVASCULAR Cardiovascular: Present regular rhythm, Present heart sounds normal, Present capillary refill normal, Present normal rate GASTROINTESTINAL Abdominal: Present soft, Present nontender, Present bowel sounds normal GENITOURINARY Genitourinary: Present exam deferred SKIN Skin: Present warm, Present dry MUSCULOSKELETAL Musculoskeletal: Present other (entire left leg swollen and edematous, tender and erythematous) NEUROLOGICAL Neurological: Present alert, Present oriented x 3, Present no gross motor or sensory deficits PSYCHOLOGICAL Psychological: Present mood/affect normal, Present judgement normal Results Laboratory Result Diagram: 05/17/20 1536 05/17/20 1536 Laboratory Laboratory Tests Test 05/17/20 15:36 White Blood Count 7.88 x10e3/uL (4.8-10.8) Red Blood Count 3.49 x10e6/uL (3.6-5.1) Hemoglobin 6.2 g/dL (12.0-16.0) Hematocrit 22.7 % (34.2-44.1) Mean Corpuscular Volume 65.0 fL (81-99) Mean Corpuscular Hemoglobin 17.8 pg (28-32) Mean Corpuscular Hemoglobin Concent 27.3 g/dL (31-35) Red Cell Distribution Width 24.9 % (11.7-14.4) Platelet Count 486 x10e3/uL (140-360) Neutrophils (%) (Auto) 75.8 % (38.7-80.0) Lymphocytes (%) (Auto) 16.2 % (18.0-39.1) Monocytes (%) (Auto) 6.5 % (4.4-11.3) Eosinophils (%) (Auto) 0.8 % (0.0-6.0) Basophils (%) (Auto) 0.1 % (0.0-1.0) Neutrophils # (Auto) 6.0 (2.1-6.9) Lymphocytes # (Auto) 1.3 (1.0-3.2) Monocytes # (Auto) 0.5 (0.2-0.8) Eosinophils # (Auto) 0.1 (0.0-0.4) Basophils # (Auto) 0.0 (0.0-0.1) Absolute Immature Granulocyte (auto 0.05 x10e3/uL (0-0.1) Differential Total Cells Counted 100 Neutrophils % (Manual) 68 % (40-74) Lymphocytes % (Manual) 28 % (19-48) Monocytes % (Manual) 1 % (3.4-9.0) Eosinophils % (Manual) 1 % (0-7) Nucleated Red Blood Cells 1 Reactive Lymphocytes 2 Platelet Estimate Adequate Platelet Morphology Comment Few giant Hypochromasia Moderate Anisocytosis Moderate Microcytosis Moderate Target Cells Moderate Tear Drop Cells Few Stomatocytes Slight [place] Cells Slight Acanthocytes Few Red Cell Morphology Comment Abnormal Prothrombin Time 13.3 seconds (11.9-14.5) Prothromb Time International Ratio 0.96 Activated Partial Thromboplast Time 36.9 seconds (23.8-35.5) Sodium Level 137 mmol/L (136-145) Potassium Level 3.5 mmol/L (3.5-5.1) Chloride Level 103 mmol/L (98-107) Carbon Dioxide Level 23 mmol/L (22-29) Anion Gap 14.5 mmol/L (8-16) Blood Urea Nitrogen 12 mg/dL (7-26) Creatinine 0.59 mg/dL (0.57-1.11) Estimat Glomerular Filtration Rate > 60 ML/MIN (60-) BUN/Creatinine Ratio 20 (6-25) Glucose Level 113 mg/dL (74-118) Calcium Level 8.8 mg/dL (8.4-10.2) Magnesium Level 1.4 MG/DL (1.3-2.1) Total Bilirubin 0.3 mg/dL (0.2-1.2) Aspartate Amino Transf (AST/SGOT) 15 IU/L (5-34) Alanine Aminotransferase (ALT/SGPT) 13 IU/L (0-55) Alkaline Phosphatase 64 IU/L (40-150) Creatine Kinase 12 IU/L (29-168) Creatine Kinase MB 0.50 ng/mL (0-5.0) Troponin I 0.040 ng/mL (0-0.300) B-Type Natriuretic Peptide 46.7 pg/mL (0-100) Total Protein 6.9 g/dL (6.5-8.1) Albumin 2.8 g/dL (3.5-5.0) Globulin 4.1 g/dL (2.3-3.5) Albumin/Globulin Ratio 0.7 (0.8-2.0) Human Chorionic Gonadotropin, Qual Negative (NEGATIVE) Lab results reviewed: Yes Assessment & Plan Medical Decision Making MDM cbc, chem, cardiacs, bnp, preg, ecg, cxr, venous doppler - r/o dvt even though pt on Eliquis, chf, stemi/nstemi, covid pneumonia Reassessment Reassessment likely dvt - will give Lovenox/admit, doppler still pending. Pt also anemic with HgB 6.2 - will transfuse given likelihood that we will need to anticoagulate patient. Admit - spoke with Dr Nowak and Dr Nadine Cutler Assessment & Plan Final Impression: (1) Anemia (2) DVT (deep venous thrombosis) (3) COVID-19 Depart Disposition: ADMITTED Last Vital Signs Date Time Temp Pulse Resp B/P (MAP) Pulse Ox O2 Delivery O2 Flow Rate FiO2 05/17/20 16:32 94 17 159/55 100 05/17/20 15:20 99.0 Room Air GABRIEL CURRIE MD May 17, 2020 17:17
[2020-05-17 17:30] VITALS: BP 172/55
[2020-05-17 18:00] VITALS: BP 172/55
[2020-05-17] MEDS ORDERED: ELIQUIS5 M1 PO (18:24)
[2020-05-17] MEDS ORDERED: GLIPIZIDE10 MG PO (18:28)
[2020-05-17 18:30] VITALS: BP 172/55
[2020-05-17] MEDS ORDERED: DEXTROSE 50% SYRINGE 50 ML IV PRN ×2 (18:45)
[2020-05-17] MEDS ORDERED: ZOLPIDEM TARTRATE 5 MG TAB PO PRN (18:45)
[2020-05-17] MEDS ORDERED: HYDROCODONE/APAP 5MG-325MG TAB PO PRN (19:00)
--- NOTE | 2020-05-17 19:23 | NUR ---
Left message for Dt Jawed regarding consult with answering service ( Jorge) Awaiting call back.
[2020-05-17] MEDS ORDERED: SODIUM CHLORIDE 0.9% 250ML 500 ML ONE (19:38)
[2020-05-17 20:00] VITALS: BP 176/61
--- NOTE | 2020-05-17 20:25 | Consultation ---
DATE OF CONSULTATION: Pulmonary Critical Care consultation CHIEF COMPLAINT: Leg swelling and history of COVID. HISTORY OF PRESENT ILLNESS: The patient is a 45-year-old woman. She has a history of pulmonary emboli in October of this year. She also had COVID in early May. She was hospitalized at [facility] from May 02 to the . She apparently had some leg swelling there and went home. Her leg swelling worsened. She now complains of severe leg swelling in the left leg. It is painful. There is some erythema. She does not complain of fever. There is no cough or difficulty breathing. PAST MEDICAL HISTORY: 1. History of deep vein thrombi and pulmonary embolism as noted above. 2. History of diabetes. 3. No prior cardiac history. PAST SURGICAL HISTORY: Noncontributory. ALLERGIES: NO KNOWN DRUG ALLERGIES. FAMILY HISTORY: Noncontributory. REVIEW OF SYSTEMS: The patient is not complaining of fevers. There is no headache. There is no neck pain. There is no chest pain. She is not complaining of any nausea or vomiting. The patient . PHYSICAL EXAMINATION: VITAL SIGNS: The patient is afebrile. The blood pressure is 159/55 and pulse is 94. Respiratory rate is 17. Saturation is 100%. HEENT: Shows no facial swelling or erythema. The oropharynx is normal. LYMPHATIC: Shows no submandibular, cervical or supraclavicular adenopathy. CARDIAC: Reveals regular rate and rhythm with normal S1 and S2. LUNGS: Auscultation of lungs reveals rhonchorous breath sounds bilaterally. There is no wheezing. ABDOMEN: Soft, nontender. There is no rebound or guarding. EXTREMITIES: . SKIN: Shows no rashes. NEUROLOGIC: Shows no focal abnormalities. The left leg is swollen and tender. There is some redness. She has palpable pulses distally. RADIOGRAPHIC DATA: Venous duplex shows venous occlusion in the popliteal vein, posterior tibial veins and common femoral vein, superficial femoral vein and saphenous veins. Chest x-ray shows bibasilar opacities and infiltrates. LABORATORY DATA: Hemoglobin is 6.2 with an MCV of 65. The platelet count is 486. The BUN to creatinine ratio is normal. The other electrolytes are within normal limits. IMPRESSION: 1. Extensive deep vein thrombosis in the left leg with occlusion of the entire popliteal and femoral vein. 2. Coronavirus disease-2019 and viral pneumonia. 3. History of pulmonary embolism. 4. History of diabetes. 5. Hypertension. PLAN: 1. The patient has been started on Lovenox at 1 mg/kg twice daily. 2. Evaluation for a catheter directed thrombolysis because of the extensive nature of the deep vein thrombosis. 3. Hematology consultation. 4. Transfuse packed red blood cells. 5. Continue to monitor blood counts. 6. Thrombophilia screen. Walter Cutler MD LM/MODL /[id number]
[2020-05-17 21:00] VITALS: BP 176/61
[2020-05-17] MEDS ORDERED: INSULIN REGULAR, HUMAN 100 UNIT/1 ML 3ML VIAL SQ SCH (21:00)
[2020-05-17] MEDS ORDERED: CEFEPIME 1GM/NS 0.9% 50 ML 50 ML IV SCH (21:30)
[2020-05-17] MEDS ORDERED: ACETAMINOPHEN 325 MG TAB PO PRN (21:30)
[2020-05-17] MEDS ORDERED: VANCOMYCIN HCL 1.25 GM in SODIUM CHLORIDE 0.9% 250ML 250 ML IV SCH (21:30)
--- NOTE | 2020-05-17 21:34 | NUR ---
Spoke with Dr Nowak regarding temp 102.2. No antibiotics, blood cultures, urine or tylenol. Recheck temp. Five tylenol 650 mg po prior to blood and do blood cultures x2, urine culture, vanc 1250mg IV Q 12 hrs, Cefepime 1 gm IV Q [address] Lozada
[2020-05-17 21:49] LABS: CREATINE KINASE MB 0.2 ng/mL (0-5.0)
[2020-05-17] MEDS ORDERED: SODIUM CHLORIDE 0.9% 250ML 250 ML ONE (21:50)
--- NOTE | 2020-05-17 22:00 | NUR ---
Blood cultures drawn x2, patient stated " I just went to bathroom and cant go right now" regarding urine culture. Will continue to monitor and attempt to collect urine.
--- NOTE | 2020-05-17 22:30 | NUR ---
First unit of PRBC started. ill continue to monitor.
[2020-05-18] VITALS: BP 136/51
--- NOTE | 2020-05-18 00:10 | NUR ---
AOS and charge nurse notified that Dr Nowak request patient o be transferred to [facility] or [place]. Initiate tonight. Dr Nowak updated that transfer stated b AOS.
[2020-05-18] MEDS ORDERED: DEXTROSE 50% SYRINGE 50 ML IV PRN (00:15)
--- NOTE | 2020-05-18 00:41 | History and Physical ---
ADDENDUM The patient developed a fever this evening. It seems to be from the underlying left lower extremity DVT and also possibly from chou virus. She is currently not on any oxygen, she is on room air. I will go ahead and treat her for possible underlying sepsis. Blood cultures have been collected, urine cultures as well. IV antibiotics initiated. An ID consultation has been ordered. She otherwise looks pretty stable during my evaluation. We will continue to monitor her very closely. I will also do some measurements in her left thigh to see if they can actually decrease in size while waiting for transfer to higher level of care to [facility] or any facility that is able to take this patient. I discussed plan of care with nursing staff and patient. MD SHARON Rose/IRVNI /[id number]
--- NOTE | 2020-05-18 01:06 | NUR ---
Order to measure patient thigh: area measuring at 76.75 cm.MD updated on size of thigh.
--- NOTE | 2020-05-18 01:25 | NUR ---
Second unit of PRBC started, will continue to monitor.
--- NOTE | 2020-05-18 01:26 | History and Physical ---
CHIEF COMPLAINT: Left lower extremity swelling. HISTORY OF PRESENT ILLNESS: A 45-year-old female, recently diagnosed with coronavirus disease 2019 pneumonia at [facility], transferred to [facility], treated accordingly when she was discharged to home. She comes in to [facility] with complaints of left lower extremity swelling. The patient reports that the swelling has been ongoing for the last one week. She reports that she mention this to the physicians at [facility], [facility], but they did not pursue any other imaging studies. She now presents with worsening left lower extremity swelling and pain. Left lower extremity venous Dopplers consistent within a complete occlusion of the left lower extremity venous system from the foot all the way up to the upper thigh. I have discussed this with Pulmonary Critical Care and we have agreed that the patient will likely need thrombolytics in which we are in the process of initiating a transfer to a facility that provide that service. I have discussed this with the nursing staff and residential property consultant. The patient denies any oral contraceptives. She does have a history of PE in which she takes Eliquis at home continuously. She is very compliant that she states with her Eliquis. ALLERGIES: NO KNOWN DRUG ALLERGIES. HOME MEDICATIONS: Eliquis and glipizide. REVIEW OF SYSTEMS: Pertinent positive: Left lower extremity swelling. The rest of the 14-point review of systems have been reviewed with the patient and are negative. PAST MEDICAL HISTORY: History of pulmonary embolism, type 2 diabetes. PAST SURGICAL HISTORY: Reports none. FAMILY HISTORY: Hypertension and diabetes. SOCIAL HISTORY: No drugs. No alcohol. Does not smoke. LABORATORY FINDINGS: Show white count 7.8, hematocrit is 22.7, platelets of 486. Coagulation PT 13, INR 0.96, PTT 36.9. Chemistry; sodium 137, potassium 3.5, chloride 103, bicarb 23, anion gap of 14. BUN is 12, creatinine 0.59, glucose is 113, calcium is 8.8, magnesium 1.4, total bilirubin 0.3. AST 15, ALT 13, alkaline phosphatase 64. Troponins were all negative. BNP 46. Albumin 2.8. Beta-HCG negative. SEROLOGY: Coronavirus pending. MICROBIOLOGY: Blood cultures, no growth to date. IMAGING STUDIES: Chest x-ray shows right basilar airspace opacity may represent atelectasis or developing infiltrate. No evidence of vascular congestion. Venous Doppler preliminary shows extensive occlusive DVT in the left lower extremity. PHYSICAL EXAMINATION: VITAL SIGNS: Temperature is 102.5, pulse 101, respiratory rate is 18, blood pressure was 176/61, pulse ox 100% on room air. GENERAL: Not in acute distress. Alert and oriented x3. Cooperative on examination. HEENT: Head; normocephalic, atraumatic. Eyes; pupils are equal, round, and reactive to light bilaterally. Extraocular movements intact bilaterally. Throat; no evidence of erythema or exudates in the posterior pharynx. Has poor dentition. NECK: Supple. Good range of motion. PULMONARY: Clear to auscultation bilaterally. No wheezing, no rales, no rhonchi, no crackles appreciated. CARDIOVASCULAR: Positive S1 and S2. No murmurs, rubs, or gallops appreciated. GI: Abdomen is soft, nondistended, and nontender to palpation. Bowel sounds present. MUSCULOSKELETAL: Her left lower extremity shows extensive swelling due to occlusive DVT from the left foot all the way to the upper thigh. She does have palpable pulses. It is tender to palpation. It is very swollen in the left thigh area. NEUROLOGIC: Cranial nerves 2 through 12 are grossly intact. No evidence of any neurological deficits on exam. SKIN: Intact. Warm to touch. Good cap refill. PSYCHIATRIC: Normal affect and mood. EXTREMITIES: Please look at musculoskeletal for extremity examination as described above. IMPRESSION: 1. Extensive deep venous thrombosis in the left lower leg with occlusive of the entire popliteal and femoral vein. 2. Coronavirus disease 2019 and viral pneumonia. 3. History of pulmonary embolism, on anticoagulation. 4. History of deep venous thrombosis. 5. Hypertension. 6. Anemia. PLAN: At this time, I am in the process of initiating a transfer to higher level of care to [facility] or [place], whichever is available. The patient will likely need thrombolysis in which we do not provide that service here at this hospital is what I understand. I explained that to the patient with the nurse present at bedside. The patient agreed with plan of care. I feel the patient does need a vascular surgeon or Interventional Radiology to intervene and evaluate this left lower leg. She is on full-dose anticoagulation with Lovenox 1 mg/kg twice a day. Hematology was consulted. She was also found to be significantly anemic in which this is chronic for her and 2 units of packed RBCs has been ordered. She denies any black tarry stool, hematemesis, or hematuria or any hematochezia. Thrombophilia panel has been ordered. She is on full-dose anticoagulation. Heart healthy diet. She will be on insulin sliding scale. I will adjust her antihypertensive medications. Once again, I spoke with the patient at bedside. Discussed the overall plan of care and which she has agreed that she will go to a transfer for higher level of care for IR either at [facility] to be evaluated by vascular surgeon or IR or [place] with IR and possibly Vascular Surgery. She verbalized understanding and agrees to plan of care. I discussed this plan of care with nursing staff as well and also with the banquet houseperson to see if we can initiate this transfer this evening. The patient was seen and evaluated on 05/17/2020. MD SHARON Rose/IRVIN /[id number]
--- NOTE | 2020-05-18 02:03 | NUR ---
Attempted to call report to [facility], charge nurse request to call back in 10 minutes to Nurse at [phone]
--- NOTE | 2020-05-18 02:28 | NUR ---
Report given to Belén Matute RN at [facility] for 3A 342. Patient updated on transfer.
--- NOTE | 2020-05-18 03:45 | NUR ---
Blood completed. V/S stable.
--- NOTE | 2020-05-18 03:49 | NUR ---
Patient left with EMS to [facility]. Stable at this time. No issues or concerns noted.
[2020-05-18] MEDS ORDERED: ENOXAPARIN SODIUM INJ 100 MG/ML SYR SC SCH (05:00)
[2020-05-18] MEDS ORDERED: ENOXAPARIN SOD INJ 120 MG/0.8 ML SYR SC SCH (05:00)
--- NOTE | 2020-05-18 05:10 | NUR ---
Spoke with sister Lisa García regarding transfer to [place] room 342.
== END 2020-05-18 03:14 | disposition short-term general hospital (02) | DRG 177 ==
LOC: ER 15:22 → ERHOLD 16:08 → IMCU 17:34
PROVIDERS: ADMIT Internal Medicine; ATTEND Internal Medicine
PROC: 30233N1 Transfusion of Nonautologous Red Blood Cells into Peripheral Vein, Percutaneous Approach (ICD-10-PCS; principal; 2020-05-17)
DX: U07.1 COVID-19 (principal); J12.89 Other viral pneumonia; I82.432 Acute embolism and thrombosis of left popliteal vein; I82.412 Acute embolism and thrombosis of left femoral vein; Z86.718 Personal history of other venous thrombosis and embolism; Z79.01 Long term (current) use of anticoagulants; Z86.711 Personal history of pulmonary embolism; E11.9 Type 2 diabetes mellitus without complications; I10 Essential (primary) hypertension; D64.9 Anemia, unspecified
CPT/HCPCS: 36415; 71045; 80053; 81241; 81400; 82550; 82553; 82948; 83735; 83880; 84484; 84702; 85025; 85303; 85306; 85610; 85730; 86850; 86900; 86920; 87040; 93971; 99284; J0692; J1650; J1817; J2270; J3370; J7050; P9016; U0002

== ENCOUNTER 2022-11-15 11:07 | Emergency (ER) | payer OTHER ==
[~2022-11-15] VITALS: Ht 162.6 cm; Wt 117.9 kg
[~2022-11-15 11:07] MED LIST: ELIQUIS5 M1 PO; GLIPIZIDE10 MG PO
[2022-11-15] MEDS ORDERED: SODIUM CHLORIDE 0.9% 1000ML 1,000 ML IV STA (11:34)
[2022-11-15 12:13] LABS: BASOPHILS % 0.6 % (0.0-1.0); EOSINOPHILS % 0.8 % (0.0-6.0); HEMATOCRIT 27.7 % (34.2-44.1); LYMPHOCYTES % 18.7 % (18.0-39.1); MEAN CORPUSCULAR HEMOGLOBIN 19.4 pg (28-32); MEAN CORPUSCULAR HGB CONC 28.9 g/dL (31-35); MEAN CORPUSCULAR VOLUME 67.2 fL (81-99); MONOCYTES # (AUTO) 0.5 (0.2-0.8); MONOCYTES % 10.2 % (4.4-11.3); NEUTROPHILS # (AUTO) 3.6 (2.1-6.9); NEUTROPHILS % 69.3 % (38.7-80.0); PLATELET COUNT 540 x10e3/uL (140-360); RED BLOOD COUNT 4.12 x10e6/uL (3.6-5.1); RED CELL DISTRIBUTION WIDTH 19.1 % (11.7-14.4)
[2022-11-15 12:37] LABS: ALBUMIN 3.1 g/dL (3.5-5.0); ALBUMIN/GLOBULIN RATIO 0.7 (0.8-2.0); ANION GAP 14.2 mmol/L (8-16); CALCIUM 9.6 mg/dL (8.4-10.2); CREATININE, SERUM 0.69 mg/dL (0.57-1.11); POTASSIUM 3.2 mmol/L (3.5-5.1)
[2022-11-15 12:44] LABS: CREATINE KINASE MB 0.8 ng/mL (0-5.0)
[2022-11-15] MEDS ORDERED: LISINOPRIL5 MG PO (13:54)
== END 2022-11-15 14:10 | disposition home or self-care (01) ==
LOC: ER 11:15
DX: R53.1 Weakness (principal); I10 Essential (primary) hypertension; E11.9 Type 2 diabetes mellitus without complications; D64.9 Anemia, unspecified
CPT/HCPCS: 36415; 71046; 80053; 82550; 82553; 83880; 84484; 85025; 93005; 99283